=== PATIENT | male | born 1940 | race African-American/Black ===

== ENCOUNTER 2017-09-13 23:20 | Inpatient (IN) | payer OTHER ==
[~2017-09-13] VITALS: Ht 180.3 cm; Wt 85.3 kg
[~2017-09-13 23:20] MED LIST: ASPIRIN325 PO; CALCITRIOL0.25 MCG PO; CELLCEPT500 MG PO; COLACE100 MG PO; CRESTOR20 MG PO; LASIX 20 MG TAB20 MG PO; LEVEMIR SQ; LOPRESSOR25 PO; NOVOLOG100 UNIT/1 SQ; PAXIL10 MG; PREDNISONE 5 MG5 M1 PO; PRILOSEC20 MG PO; PROGRAF5 MG PO; SIMVASTATIN10 MG PO; TACROLIMUS1 MG PO; TUMS PO
[2017-09-13 23:33] VITALS: BP 148/66
[2017-09-14 00:24] LABS: HEMATOCRIT 38.1 % (42.0-52.0); HEMOGLOBIN 12.5 gm/dL (14.0-18.0); MCH 28.6 pg (26.0-34.0); MCHC 32.7 g/dL (28.0-37.0); MCV 87.4 fL (80.0-100.0); PLATELET COUNT 125 thou/uL (150-400); RBC 4.36 mil/uL (4.50-6.00); RDW 14.3 % (10.5-14.5); WBC 3.8 thou/uL (4.0-11.0)
[2017-09-14 00:37] LABS: CALCIUM 9.7 mg/dL (8.5-10.1); CREATININE 1.9 mg/dL (0.7-1.3); POTASSIUM 4.8 mmol/L (3.5-5.1)
[2017-09-14 01:19] LABS: ABSOLUTE NEUTROPHILS 1.9 thou/uL (1.4-8.2)
[2017-09-14 02:24] VITALS: BP 151/64
[2017-09-14 02:36] VITALS: BP 151/64
[2017-09-14 02:53] VITALS: BP 163/73
[2017-09-14 07:45] VITALS: BP 149/70
[2017-09-14 11:47] VITALS: BP 149/70
== END 2017-09-14 14:28 | disposition home or self-care (01) | DRG 638 ==
LOC: ER 23:20 → EROBS 09-14 02:18 → 4W 09-14 02:18
PROVIDERS: Emergency Medicine
DX: E11.649 Type 2 diabetes mellitus with hypoglycemia without coma (principal); Z94.0 Kidney transplant status; I12.0 Hypertensive chronic kidney disease with stage 5 chronic kidney disease or end stage renal disease; E11.22 Type 2 diabetes mellitus with diabetic chronic kidney disease; N18.6 End stage renal disease; I25.10 Atherosclerotic heart disease of native coronary artery without angina pectoris; N17.9 Acute kidney failure, unspecified; H54.8 Legal blindness, as defined in USA; E78.5 Hyperlipidemia, unspecified; I25.2 Old myocardial infarction; Z79.4 Long term (current) use of insulin; Z79.82 Long term (current) use of aspirin; Z79.899 Other long term (current) drug therapy
CPT/HCPCS: 10040

== ENCOUNTER 2018-04-10 10:43 | Inpatient (IN) | payer OTHER ==
[~2018-04-10] VITALS: Ht 180.3 cm; Wt 85.2 kg
--- NOTE | ~2018-04-10 | HC ---
[facility] [place] [address] CONSULTATION Name: ROCKY TEJEDA Room #: 160-1 ADM IN M.R.#: [id number] Admission: 04/10/18 Attend Phys: Renzo Terry MD Discharge: Date of : 44 Report #: [id number] THIS REPORT FOR: //name// CC: Renzo Terry Physician staff BEAR ATKINSON REASON FOR CONSULTATION: Syncope and complete heart block. HISTORY OF PRESENT ILLNESS: The patient is a 77-year-old patient with a history of coronary artery disease, diabetes, diabetic nephropathy and diabetic retinopathy, status post renal transplantation with a left-sided dialysis graft, who presents after having multiple syncopal episodes today. When he was found, he was noted to be in complete heart block based on the tracing. Here in the Emergency Room, he has an EKG showing sinus rhythm with a first degree AV block, right bundle branch block and left anterior fascicular block with periods of Mobitz II heart block as well as complete heart block with associated lightheadedness. He denies any chest pain or chest tightness. He denies any PND or orthopnea. He underwent an echocardiogram today in the Emergency Room showing an EF of 55-60%. REVIEW OF SYSTEMS: A 12-point review of systems was performed and was negative other than what I mentioned above. PAST MEDICAL HISTORY: As was I mentioned above. SOCIAL HISTORY: Does not smoke. FAMILY HISTORY: Noncontributory. MEDICATIONS: Have been reviewed and include metoprolol for his CAD as well as hypertension and he is also on multiple immunosuppressive medications. PHYSICAL EXAMINATION: VITAL SIGNS: Temperature is 36.5, pulse 66, respirations 14, blood pressure 139/93, sats 99%. GENERAL: He is in no acute distress. HEENT: He is blind. Pupils are fixed. His oropharynx is clear. NECK: Supple. No thyromegaly. CARDIOVASCULAR: Heart is regular rate and rhythm. No murmurs, rubs or gallops. CHEST: Clear to auscultation bilaterally. ABDOMEN: Soft, nontender, nondistended. EXTREMITIES: There is no clubbing, cyanosis or edema. NEUROLOGIC: Cranial nerves were grossly intact with normal strength bilaterally. LABORATORY DATA: Reviewed. White count is 4, hemoglobin 11, platelets are 119. [address] [address] CONSULTATION Name: ROCKY TEJEDA Room #: [facility]-1 ADM IN .R.#: [id number] Admission: 04/10/18 Attend Phys: Renzo Terry MD Discharge: Date of : 44 Report #: [id number] Sodium 143, potassium 3.9, creatinine 1.9. Troponin is normal. TSH 3.8. Chest x-ray showed no acute process. Echo showed normal LV size and function. ASSESSMENT: 1. Syncope. 2. Complete heart block. 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 5. Coronary artery disease. 6. Status post renal transplant. 7. Immunosuppressed state. PLAN: In summary, the patient is a 77-year-old presenting with syncope and evidence of complete heart block. He continues to have recurrent episodes. He will require beta blockers lifelong for his known CAD and hypertension. We will proceed with dual chamber pacemaker today. We have discussed the details of the procedure including the risks, which include but not limited to bleeding, infection, vascular damage, cardiac perforation and pneumothorax. He and his son understand and are willing to proceed. By: 1505 [facility] Thaddeus Garcia MD /nt
--- NOTE | ~2018-04-10 | P ---
[facility] [place] [address] PROCEDURE REPORT Name: ROCKY TEJEDA Room #: 214-P [facility] IN ..#: [id number] Admission: 04/10/18 Attend Phys: Renzo Terry MD Discharge: 04/11/18 Date of : 42 Report #: [id number] THIS REPORT FOR: //name// CC: Renzo Terry Physician staff BEAR CHINA PROCEDURE: Pacemaker implantation. HISTORY: The patient is a 77-year-old with history of trifascicular block with a syncopal episode and found to be experiencing Mobitz second degree heart block and third-degree heart block. He is here for pacemaker implantation. Of note, he has a left-sided AV fistula, and therefore, he will undergo pacemaker implantation from the right-sided placement. ANESTHESIA: The patient underwent MAC anesthesia with no anesthesia related complications. DESCRIPTION OF PROCEDURE: The patient underwent informed consent. We discussed the details of the procedure including the risks, which include but not limited to bleeding, infection, vascular damage, pneumothorax and cardiac perforation. He understood these risks and is willing to proceed. The patient was brought to the EP laboratory in fasting and sedated state, prepped and draped in a sterile fashion, received IV vancomycin for antibiotic prophylaxis and underwent a venogram showing patency of the right axillary vein. Next, lidocaine was injected below the level of the right clavicle. Incision was made, pocket was created over the prepectoral fascia and access was obtained twice to the right axillary vein with sheaths positioned using the modified Seldinger technique. Next, under fluoroscopy, leads were positioned into the right ventricle and the right atrial appendage, both with adequate pacing and sensing thresholds. The leads were sutured to the prepectoral fascia, and the pocket was irrigated with vancomycin. The device was connected. TUG test was performed. The pocket was closed in 3 layers using 2-0 for the deep layer, 3-0 for the mid layer and 4-0 for the subcuticular. Surgical glue was placed to the outer skin layer. The patient awoke neurologically and hemodynamically intact. No complications and no significant bleeding. The implanted pacemaker was a [employer] MRI compatible device, serial #[id number]. Atrial and ventricular leads were [employer] leads as well. The atrial lead demonstrated a P-wave of 2 millivolts, pacing impedance of 0.75 volts at 0.4 milliseconds, pacing impedance of 440 ohms. The RV lead demonstrated a R-wave of 2.3 millivolts, pacing impedance of 610 ohms and the pacing threshold of 0.25 volts at 0.4 milliseconds. The device was programmed to the DDD 60-130 mode. CONCLUSIONS: [facility] [address] [place] [address] PROCEDURE REPORT Name: ROCKY TEJEDA Khurram Room #: 214-P [facility] IN M.R.#: [id number] Admission: 04/10/18 Attend Phys: Renzo Terry MD Discharge: 04/11/18 Date of : 42 Report #: [id number] 1. Successful dual-chamber pacemaker implantation. 2. Satisfactory atrial and ventricular pacing and sensing thresholds. By: 1224 1544 Thaddeus Garcia MD /nt
[~2018-04-10 10:43] MED LIST changes: -LOPRESSOR25 PO; +LOPRESSOR50 PO
[2018-04-10 10:44] VITALS: BP 156/67
[2018-04-10 10:58] LABS: ABSOLUTE NEUTROPHILS 2.1 thou/uL (1.4-8.2); BASOPHILS 0.5 % (0.0-2.0); EOSINOPHILS 4.2 % (0.0-3.0); HEMATOCRIT 35.7 % (42.0-52.0); HEMOGLOBIN 11.8 gm/dL (14.0-18.0); LYMPHOCYTES 31.6 % (24.0-44.0); MCH 29.1 pg (26.0-34.0); MCV 88.2 fL (80.0-100.0); PLATELET COUNT 119 thou/uL (150-400); POLYS 52.7 % (36.0-66.0); RBC 4.05 mil/uL (4.50-6.00); RDW 13.8 % (10.5-14.5)
[2018-04-10 11:10] LABS: ANION GAP 7 mmol/L (7-16); BUN 30 mg/dL (7-18); CALCIUM 9.2 mg/dL (8.5-10.1); CHLORIDE 106 mmol/L (98-107); CO2 30 mmol/L (21-32); CREATININE 1.9 mg/dL (0.7-1.3); GLUCOSE 51 mg/dL (74-106); POTASSIUM 3.9 mmol/L (3.5-5.1); SODIUM 143 mmol/L (136-145)
[2018-04-10 11:18] LABS: ALBUMIN 3.3 g/dL (3.4-5.0); SGOT 20 U/L (15-37); SGPT 19 U/L (30-65); TOTAL BILIRUBIN 0.5 mg/dL (<0.1-1.0); TOTAL PROTEIN 6.7 g/dL (6.4-8.2); TROPONIN-I <0.06 ng/mL (<0.06)
[2018-04-10 12:30] LABS: URINE COLOR YELLOW
[2018-04-10 12:32] LABS: URINE BILIRUBIN NEGATIVE (Negative); URINE BLOOD TRACE (Negative); URINE CLARITY CLEAR; URINE GLUCOSE-RANDOM* NEGATIVE (Negative); URINE KETONES NEGATIVE (Negative); URINE NITRITE-REFLEX NEGATIVE (Negative); URINE PROTEIN (DIPSTICK) NEGATIVE (Negative); URINE SPECIFIC GRAVITY 1.015 (1.005-1.035)
[2018-04-10 12:33] LABS: URINE LEUKOCYTES-REFLEX NEGATIVE (Negative); URINE UROBILINOGEN 0.2 E.U./dl (0.2-1.0)
[2018-04-10] MEDS ORDERED: NOVOLOG100 UNIT/M SUBQ (12:39)
[2018-04-10] MEDS ORDERED: CALCIUM + VITA1 EACH PO (12:42)
[2018-04-10] MEDS ORDERED: ZESTRIL20 MG PO (12:43)
[2018-04-10 13:06] VITALS: BP 139/93
[2018-04-10 13:14] LABS: CHOLESTEROL 151 mg/dL (<200); HDL CHOLESTEROL 77 mg/dL (>40); LDL CHOLESTEROL 62 mg/dL (<100); TRIGLYCERIDE 64 mg/dL (<150); VLDL 13 mg/dL (<40)
[2018-04-10 13:16] LABS: SERUM ASSESSMENT Clear
--- NOTE | 2018-04-10 13:31 | 2DMMODE ---
[facility] [place] [address] 2 D/M-MODE ECHOCARDIOGRAM Name: ROCKY TEJEDA Room #: 160-1 ADM IN [facility]#: [id number] Admission: 04/10/18 Attend Phys: Renzo Terry MD Discharge: Date of : 44 Date of Service: 04/10/18 1330 Report #: [id number] THIS REPORT FOR: //name// APPROVED REPORT Study performed: 04/10/2018 12:32:54 EXAM: Comprehensive 2D, Doppler, and color-flow Echocardiogram Patient Location: ER Room #: 12 Status: stat BSA: 2.04 HR: 61 bpm BP: 139/93 mmHg Rhythm: NSR Other Information Study Quality: Good Indications Diabetes Hypertension/HDD Complete Heart Block 2D Dimensions RVDd: 39.65 mm IVSd: 14.09 (7-11mm) LVOT Diam: 21.98 (18-24mm) LVDd: 43.53 mm PWd: 14.15 (7-11mm) Ascending Ao: 34.12 (22-36mm) LVDs: 25.58 (25-40mm) Aortic Root: 29.08 mm IVC: 18.00 mm Volumes Left Atrial Volume (Systole) Single Plane 4CH: 47.50 mL Single Plane 2CH: 52.61 mL LA ESV Index: 30.00 mL/m2 Aortic Valve AoV Peak Jose Alfredo.: 1.27 m/s AO Peak Gr.: 6.44 mmHg LVOT Max P.76 mmHg LVOT Max V: 0.97 m/s DIANA Vmax: 2.90 cm2 Mitral Valve E/A Ratio: 0.9 [facility] [address] [place] [address] 2 D/M-MODE ECHOCARDIOGRAM Name: ROCKY TEJEDA Room #: [address] [place] [address] IN [facility]#: [id number] Admission: 04/10/18 Attend Phys: Renzo Terry MD Discharge: Date of : 44 Date of Service: 04/10/18 1330 Report #: [id number] MV Decel. Time: 218.26 ms MV E Max Jose Alfredo.: 0.97 m/s MV A Jose Alfredo.: 1.07 m/s MV PHT: 63.30 ms IVRT: 106.11 ms Pulmonary Valve PV Peak Jose Alfredo.: 1.00 m/s PV Peak Gr.: 4.04 mmHg Pulmonary Vein P Vein S: 0.77 m/s P Vein A: 0.26 m/s P Vein D: 0.38 m/s P Vein A Dur.: 101.5 msec P Vein S/D Ratio: 2.03 Tricuspid Valve TR Peak Jose Alfredo.: 2.56 m/s TR Peak Gr.: 26.29 mmHg PA Pressure: 31.00 mmHg Left Ventricle The left ventricle is normal size. Mild concentric left ventricular hypertrophy. The left ventricular systolic function is normal. The left ventricular ejection fraction is within the normal range. LVEF is 55-60%. Grade I - abnormal relaxation pattern. Right Ventricle The right ventricle is normal size. The right ventricular systolic function is normal. Atria The left atrium size is normal. The right atrium size is normal. Aortic Valve The aortic valve is normal in structure. No aortic regurgitation is present. There is no aortic valvular stenosis. Mitral Valve The mitral valve is normal in structure. Mild mitral regurgitation. No evidence of mitral valve stenosis. Tricuspid Valve The tricuspid valve is normal in structure. There is trace to mild tricuspid regurgitation. Estimated PAP 31 mmHg. There is mild pulmonary hypertension. [place] [id number] 2 D/M-MODE ECHOCARDIOGRAM Name: ROCKY TEJEDA Room #: 160-1 [facility] IN .R.#: [id number] Admission: 04/10/18 Attend Phys: Renzo Terry MD Discharge: Date of : 44 Date of Service: 04/10/18 1330 Report #: [id number] Pulmonic Valve The pulmonary valve is normal in structure. There is no pulmonic valvular regurgitation. Great Vessels The aortic root is normal in size. IVC is normal in size and collapses >50% with inspiration. Pericardium There is no pericardial effusion. <Conclusion> The left ventricle is normal size. LVEF is 55-60%. The aortic valve is normal in structure. The mitral valve is normal in structure. Mild mitral regurgitation. The tricuspid valve is normal in structure. The pulmonary valve is normal in structure. The aortic root is normal in size. There is no pericardial effusion. <ELECTRONICALLY SIGNED> By: Ashok Martin MD 04/10/18 1330 1330 133 Ashok Martin MD /INF
--- NOTE | 2018-04-10 15:46 | EKG ---
[address] [address] ELECTROCARDIOGRAM REPORT Name: ROCKY TEJEDA Room #: 160-1 ADM IN M.R.#: [id number] Admission: 04/10/18 Attend Phys: Renzo Terry MD Discharge: Date of : 44 Report #: [id number] THIS REPORT FOR: //name// [facility] ED Test Date: 2018-04-10 Test Time: 10:46:08 Pat Name: ROCKY TEJEDA Department: Room: 160 Gender: M Commissions Manager: : 1940 Requested By: Roger Duran Order Number: [id number] MD: Thaddeus Garcia Measurements Intervals [place] Rate: 62 P: 45 [place]: 295 QRS: -75 QRSD: 147 T: 59 QT: 423 QTc: 430 Interpretive Statements Sinus rhythm Prolonged [place] interval RBBB and LAFB Compared to ECG 01/17/2015 14:58:24 First degree AV block now present Right bundle-branch block now present Electronically Signed On 04-10-2018 15:46:39 AIRPLANE CLEANER by Thaddeus Garcia [email or web address] <ELECTRONICALLY SIGNED> By: Thaddeus Garcia MD 04/10/18 1546 1046 1046 Thaddeus Garcia MD /[facility]
--- NOTE | 2018-04-10 15:48 | EKG ---
[address] [address] ELECTROCARDIOGRAM REPORT Name: ROCKY TEJEDA Room #: 160-1 ADM IN M.R.#: [id number] Admission: 04/10/18 Attend Phys: Renzo Terry MD Discharge: Date of : 44 Report #: [id number] THIS REPORT FOR: //name// [facility] ED Test Date: 2018-04-10 Test Time: 12:33:02 Pat Name: ROCKY TEJEDA Department: Room: 160 Gender: M Oil Dipper: : 1940 Requested By: Keyla Bianchi Order Number: [id number] MD: Thaddeus Garcia Measurements Intervals [place] Rate: 61 P: 0 RI: 333 QRS: -68 QRSD: 149 T: 73 QT: 436 QTc: 440 Interpretive Statements Sinus rhythm Prolonged [place] interval RBBB and LAFB Trifascicular block Compared to ECG 01/17/2015 14:58:24 First degree AV block now present Right bundle-branch block now present Electronically Signed On 04-10-2018 15:48:01 AUDIOLOGY TECHNICIAN by Thaddeus Garcia [email or web address] <ELECTRONICALLY SIGNED> By: Thaddeus Garcia MD 04/10/18 1548 1233 1233 Thaddeus Garcia MD /EPI
--- NOTE | 2018-04-10 18:41 | NUR ---
PT ADMITTED FROM PACU POST PPM PLACEMENT. CARE ASSUMED APPROX 1730. PT ALERT AND ORIENTED X4. BLIND AND ELEM. SON- KELLI RINGY AT BEDSIDE AND COMPLETED PAPERWORK. BOTH PT AND SON DENY QUESTIONS OR CONCERNS REGARDING POC AND POST OP MANAGEMENT. RIGHT CHEST PPM SITE C/D/I AND CLOSED WITH DERMAOND. VSS. FALL PRECAUTIONS INITIATED. PT EDUCATED AND AGREEABLE TO FALL PRECAUTIONS. DENIES PAIN AND SOA. NO DISTRESS NOTED.
[2018-04-10 20:01] VITALS: BP 173/74
[2018-04-10 23:46] VITALS: BP 166/66
[2018-04-11 00:06] VITALS: BP 166/66
--- NOTE | 2018-04-11 04:19 | NUR ---
ASSUMED PT CARE AT 1900. PT AWAKE, A/OX4, ASSESSMENT CHARTED, VITAL SIGNS STABLE. NO CHEST PAIN. PACEMAKER SITE C/D/I, NO HEMATOMA NOTED. CALL LIGHT WITHIN REACH. PT ABLE TO CALL APPROPRIATELY. PT RESTED WELL THROUGH THE NIGHT. PROGRESSING WELL TOWARD PLAN OF CARE. WILL CONTINUE TO MONITOR.
[2018-04-11 04:56] LABS: ABSOLUTE NEUTROPHILS 2.8 thou/uL (1.4-8.2); BASOPHILS 0.2 % (0.0-2.0); EOSINOPHILS 2.8 % (0.0-3.0); HEMATOCRIT 35.2 % (42.0-52.0); HEMOGLOBIN 11.7 gm/dL (14.0-18.0); LYMPHOCYTES 22.8 % (24.0-44.0); MCH 29.2 pg (26.0-34.0); MCHC 33.3 g/dL (28.0-37.0); MCV 87.6 fL (80.0-100.0); PLATELET COUNT 109 thou/uL (150-400); POLYS 63.2 % (36.0-66.0); RBC 4.01 mil/uL (4.50-6.00); RDW 13.9 % (10.5-14.5); WBC 4.5 thou/uL (4.0-11.0)
[2018-04-11 05:09] LABS: CALCIUM 8.8 mg/dL (8.5-10.1); CREATININE 1.7 mg/dL (0.7-1.3); MAGNESIUM 1.8 mg/dL (1.8-2.4)
[2018-04-11 05:15] LABS: POTASSIUM 5.4 mmol/L (3.5-5.1)
[2018-04-11 05:51] VITALS: BP 143/56
[2018-04-11 08:00] VITALS: BP 145/67
[2018-04-11 12:00] VITALS: BP 178/87
[2018-04-11 12:39] VITALS: BP 145/67
--- NOTE | 2018-04-11 14:25 | NUR ---
PT. DISCHARGING TODAY TO HOME WITH [facility]. FAXED DC ORDERS/SUMMARY TO [facility] SPOKE WITH ROCKY IN ADM, SHE RECEIVED ORDERS AND WILL START VISITS ON Sunday04/13/18 SHE WILL NOTIFY PT. OF TIME OF VISITS.
--- NOTE | 2018-04-11 14:31 | NUR ---
ASSUMED CARE AT SHIFT CHANGE. PT A/O X 4. ASSESSMENTS PER CHART. CXR THIS MORNING. CLEARED BY CARDIOLOGY TO GO HOME TODAY. PT DENIES ANY PAIN, SOB, OR FEELING LIKE HE IS GOING TO PASS OUT TODAY. IV ATB X 1 DOSE GIVEN. PT GOING HOME WITH HOME HEALTH THIS AFTERNOON AROUND 1500. FAMILY AND PT UPDATED. WILL CONT TO MONITOR AND INTERVENE PRN.
--- NOTE | 2018-04-11 14:36 | NUR ---
Hall Manager visited with the pt at bedside. He is being dc'd to home today. Pt reports his children will be picking him up this afternoon. He lives with his in [place] and he has hh services through [facility]. HH orders noted. [facility] alerted to dc today and resumption of care orders. DC interstate planner to fax the orders and confirm his start of care. Pt denies any other dc needs at this time. Case closed.
--- NOTE | 2018-04-11 14:50 | NUR ---
IV D/C'D AND TELE REMOVED FROM PT BEFORE GETTING DRESSED FOR DISCHARGE.
--- NOTE | 2018-04-12 09:00 | HC ---
[facility] [place] [address] CONSULTATION Name: ROCKY TEJEDA Room #: 214-P [facility] IN ..#: [id number] Admission: 04/10/18 Attend Phys: Renzo Terry MD Discharge: 04/11/18 Date of : 42 Report #: [id number] THIS REPORT FOR: //name// CC: Renzo Terry Physician staff BEAR ATKINSON REASON FOR CONSULTATION: Kidney transplant. REASON FOR PRESENTATION: Blacking out. HISTORY OF PRESENT ILLNESS: A 77-year-old with past medical history of hypertension, diabetes mellitus, status post kidney transplant. He is also known to have coronary artery disease post-stent x 4. Apparently, the patient had syncopal episode while having breakfast yesterday. He was brought to the Emergency Room and was found to have complete heart block. He had a pacemaker insertion and I am consulted to manage his kidney transplant. He had his cadaveric kidney transplantation back in 2000. Baseline creatinine is around 1.5-1.8. He is maintained on dual immunosuppression and I am consulted to manage his issues related to his transplant. PAST MEDICAL HISTORY: 1. Chronic kidney disease. 2. Diabetes mellitus. 3. Hypertension. 4. Hyperlipidemia. 5. Coronary artery disease. 6. Complete heart block. 7. Cadaveric kidney transplantation. 8. Left AV fistula. 9. Hyperlipidemia. 10. Legally blind. MEDICATIONS: 1. Tacrolimus. 2. Lasix. 3. Metoprolol. 4. Levemir insulin. 5. Lisinopril. 6. Mycophenolate. 7. Prednisone. 8. Crestor. 9. Calcitriol. FAMILY HISTORY: Significant for hypertension and diabetes mellitus. REVIEW OF SYSTEMS: [facility] [address] [place] [address] CONSULTATION Name: ROCKY TEJEDA Room #: 214-P [facility] IN ..#: [id number] Admission: 04/10/18 Attend Phys: Renzo Terry MD Discharge: 04/11/18 Date of : 42 Report #: [id number] GENERAL: Significant for syncopal episode. CARDIOVASCULAR: No chest pain or palpitation. NECK: Supple. PULMONARY: No cough or hemoptysis. GASTROINTESTINAL: No nausea or vomiting. GENITOURINARY: No frequency, urgency. MUSCULOSKELETAL: No back pain, no morning stiffness. NEUROLOGICAL: Significant for syncope. ALLERGIES: No known drug allergies. SOCIAL HISTORY: Denies drug or alcohol abuse. PHYSICAL EXAMINATION: GENERAL: Alert, oriented, in no apparent distress. VITAL SIGNS: Blood pressure now is 145/67, pulse rate is 98, temperature 36.5. HEAD AND NECK: No jugular venous distention, no bruit, no thyromegaly. CHEST: Clear to auscultation bilaterally. CARDIOVASCULAR: No rub detected. ABDOMEN: Soft, nontender with no hepatosplenomegaly. LOWER EXTREMITIES: No edema with intact peripheral pulses. UPPER EXTREMITIES: Left AV fistula. LABORATORY VALUES: Reviewed. Hemoglobin is 11.7, platelet is 109. Potassium is mildly elevated at 5.4. Blood sugar is elevated. Chest x-ray with no acute finding. Dual lead pacemaker present. ASSESSMENT, IMPRESSION AND PLAN: 1. Chronic kidney disease. 2. Post-kidney transplantation. 3. Complete heart block. 4. Diabetes mellitus. 5. Hypertension. 6. Post-pacemaker. 7. The patient's kidney function seems to be stable. He does have mild hyperkalemia. He is currently maintained on tacrolimus and mycophenolate along with prednisone. I will check his tacrolimus level in the morning as this might be contributing to his hyperkalemia. 8. Low potassium diet. 9. Repeat labs in the morning. 10. Resume his blood pressure and sugar medication. 11. We will continue to follow along. <ELECTRONICALLY SIGNED> By: Radha Gillespie MD 04/12/18 0900 0955 1043 Radha Gillespie MD /nt
== END 2018-04-11 16:34 | disposition home health service (06) | DRG 242 ==
LOC: ER 10:43 → 2N 12:02 → EROBS 12:02 → TBACV 13:09 → 2N 17:57 → ENTRNSPT 04-11 15:38 → EDTRNSPTSTS 04-11 15:43 → 2N 04-11 16:34
PROVIDERS: Emergency Medicine; Nurse Practitioner; ADMIT Hospitalist
DX: I44.2 Atrioventricular block, complete (principal); E43 Unspecified severe protein-calorie malnutrition; Z94.0 Kidney transplant status; I12.0 Hypertensive chronic kidney disease with stage 5 chronic kidney disease or end stage renal disease; E78.5 Hyperlipidemia, unspecified; H54.8 Legal blindness, as defined in USA; I25.10 Atherosclerotic heart disease of native coronary artery without angina pectoris; E11.319 Type 2 diabetes mellitus with unspecified diabetic retinopathy without macular edema; I44.1 Atrioventricular block, second degree; E11.22 Type 2 diabetes mellitus with diabetic chronic kidney disease; E11.649 Type 2 diabetes mellitus with hypoglycemia without coma; E87.5 Hyperkalemia; I77.0 Arteriovenous fistula, acquired; Z79.82 Long term (current) use of aspirin; I25.2 Old myocardial infarction; Z82.49 Family history of ischemic heart disease and other diseases of the circulatory system; Z83.3 Family history of diabetes mellitus; Z95.5 Presence of coronary angioplasty implant and graft; Z79.899 Other long term (current) drug therapy; Z79.4 Long term (current) use of insulin; N18.9 Chronic kidney disease, unspecified
CPT/HCPCS: 10081; 62110; 62900; 70005

== ENCOUNTER 2018-07-05 16:28 | Inpatient (IN) | payer OTHER ==
[~2018-07-05] VITALS: Ht 175.3 cm; Wt 74.8 kg
--- NOTE | ~2018-07-05 | HC ---
[facility] [address] [place] [address] CONSULTATION Name: ROCKY TEJEDA Room #: 455-P [facility] IN ..#: [id number] Admission: 07/05/18 ������������������ Attend Phys: Renzo Terry MD Discharge: ������������������ Date of : 44 Report #: [id number] THIS REPORT FOR: //name// CC: BHAVIK physician/PCP Renzo Terry Physician staff REASON FOR THE CONSULTATION: Kidney transplant. HISTORY OF PRESENT ILLNESS: A 77-year-old with kidney transplant in 2001. He was maintained on hemodialysis for a couple of years prior to that. He had been seeing Dr. Bennett up until 2012. Then, he switched his care to the [facility] He is still maintained on triple immunosuppressive regimen. He presented to the Emergency Room on the reporting that he had been having some issues with weakness and decreased appetite. He also reports high blood sugar readings. He had some issues with chest pain. This was described as intermittent. It has some radiations to the left anterior shoulder. He also noticed that his blood sugar has been running high lately. He denies any urinary symptoms. He was accordingly admitted to be further evaluated. He recently was in the hospital back in March and received a pacemaker for a complete heart block. His chest pain has subsided. From the renal perspective, he received a kidney transplant back in 2001. His baseline creatinine is around 1.7, was marginally elevated when the patient presented; however, it is down to his baseline at 1.7. MEDICATIONS: 1. Metoprolol. 2. Lisinopril. 3. Lasix. 4. Insulin. 5. Mycophenolate. 6. Tacrolimus. 7. Aspirin. 8. Prednisone. PAST MEDICAL HISTORY: Extensive and includes the followin. Chronic kidney disease. 2. Status post renal transplantation. 3. Diabetes mellitus. 4. Hypertension. 5. Status post pacemaker. 6. Coronary artery disease. 7. Left AV fistula. 8. Hyperlipidemia. 9. Legal blindness. FAMILY HISTORY: Significant for hypertension and diabetes mellitus. [facility] [address] [place] [address] CONSULTATION Name: ROCKY TEJEDA Room #: 455-P [facility] IN ..#: [id number] Admission: 07/05/18 ������������������ Attend Phys: Renzo Terry MD Discharge: ������������������ Date of : 44 Report #: [id number] REVIEW OF SYSTEMS: GENERAL: Significant for weakness. CARDIOVASCULAR: As per the history of present illness. PULMONARY: No cough or hemoptysis. GASTROINTESTINAL: Decreased oral intake. GENITOURINARY: No frequency and no urgency. MUSCULOSKELETAL: No morning stiffness and no back pain. NEUROLOGICAL: No syncope. No seizures. ALLERGIES: None. SOCIAL HISTORY: He denies drug or alcohol abuse. PHYSICAL EXAMINATION: VITAL SIGNS: Temperature 36.8, pulse rate 62 and blood pressure 160/52. HEAD AND NECK: No jugular venous distention and no bruit or thyromegaly. CHEST: Decreased air entry bilaterally, but no crackles. CARDIOVASCULAR: No rub detected. ABDOMEN: Soft and nontender with no graft tenderness. LOWER EXTREMITIES: No edema. LABORATORY DATA: Laboratory values reviewed. Thrombocytopenia, present at 106. Chemistry from today revealed a sodium of 135, potassium of 1.7. Blood sugar is mildly elevated at 206. Albumin is 2.8. ASSESSMENT, IMPRESSION AND PLAN: 1. Status post renal transplantation. 2. Diabetes mellitus. 3. Hypertension. 4. Chest pain of unknown significance in a patient with known coronary artery disease. 5. Status post pacemaker insertion. 6. Troponin has been negative x 3. Renal function is improving with hydration. He is suffering from long-term side effects related to his immune suppressive medications including prednisone, high Prograf dose. He is also having thrombocytopenia. It is unclear to me as to why is the patient still on such a high dose immunosuppressive medications. I will discontinue his prednisone. We will reduce the dose of his Prograf to 3 mg twice a day as this is the dose that he used to see Dr. Bennett with further reduction has to be discussed between him and his quill layer at the [facility] 7. We will continue to follow along during his hospital stay. 8. Defer the management of his other issues to the primary team. ��������������������������������������������� ���������������������������������������� By: ��������������������������������������������� [id number] 0108 Radha Gillespie MD /nt
[~2018-07-05 16:28] MED LIST changes: +CALCIUM + VITA1 EACH PO; +NOVOLOG100 UNIT/M SUBQ; +ZESTRIL20 MG PO
[2018-07-05 17:45] VITALS: BP 151/56
[2018-07-05 18:13] LABS: HEMATOCRIT 33.6 % (42.0-52.0); HEMOGLOBIN 11.1 gm/dL (14.0-18.0); MCH 28.9 pg (26.0-34.0); MCHC 33.1 g/dL (28.0-37.0); MCV 87.3 fL (80.0-100.0); PLATELET COUNT 125 thou/uL (150-400); RBC 3.85 mil/uL (4.50-6.00); RDW 13.7 % (10.5-14.5); WBC 3.5 thou/uL (4.0-11.0)
[2018-07-05 18:23] LABS: ANION GAP 7 mmol/L (7-16); BUN 43 mg/dL (7-18); CALCIUM 10.8 mg/dL (8.5-10.1); CHLORIDE 98 mmol/L (98-107); CO2 31 mmol/L (21-32); CREATININE 2.5 mg/dL (0.7-1.3); GLUCOSE 342 mg/dL (74-106); POTASSIUM 5.2 mmol/L (3.5-5.1); SODIUM 136 mmol/L (136-145)
[2018-07-05 18:33] LABS: ALBUMIN 3.6 g/dL (3.4-5.0); ANISOCYTOSIS 1+; MAGNESIUM 1.7 mg/dL (1.8-2.4); SGOT 20 U/L (15-37); SGPT 15 U/L (30-65); TOTAL BILIRUBIN 0.5 mg/dL (<0.1-1.0); TOTAL PROTEIN 6.9 g/dL (6.4-8.2); TROPONIN-I <0.06 ng/mL (<0.06)
[2018-07-05 19:14] LABS: URINE BILIRUBIN NEGATIVE (Negative); URINE BLOOD 2+ (Negative); URINE CLARITY CLEAR; URINE COLOR YELLOW; URINE GLUCOSE-RANDOM* NEGATIVE (Negative); URINE KETONES NEGATIVE (Negative); URINE LEUKOCYTES-REFLEX NEGATIVE (Negative); URINE NITRITE-REFLEX NEGATIVE (Negative); URINE PROTEIN (DIPSTICK) 2+ (Negative); URINE SPECIFIC GRAVITY >= 1.030 (1.005-1.035); URINE UROBILINOGEN 0.2 E.U./dl (0.2-1.0)
[2018-07-05 19:21] LABS: HYALINE CASTS 4-10 Moderate /LPF (None Seen)
[2018-07-05 19:22] LABS: AMORPHOUS URATES Few /LPF (None Seen); BACTERIA-REFLEX 1-9 Few /HPF (None Seen); SQUAMOUS 0-3 Few /LPF (0-3); URINE RBC 0-2 Rare /HPF (0-2); URINE WBC-REFLEX 0-5 Rare /HPF (0-5)
[2018-07-05 21:05] VITALS: BP 168/84
[2018-07-05 21:13] VITALS: BP 166/64
--- NOTE | 2018-07-05 21:30 | NUR ---
Pt. arrived to the unit from the emergency room accompanied by family and staff. He offers no complaints. Admission assessment and history completed. Bed alarm is on.
[2018-07-05 21:55] VITALS: BP 184/77
--- NOTE | 2018-07-06 04:44 | NUR ---
Pt. rested quietly at intervals during the night when checked on during frequent rounds. He uses the urinal. No c/o pain and bed alarm is on.
[2018-07-06 04:57] VITALS: BP 153/60
[2018-07-06 05:09] LABS: HEMATOCRIT 32.8 % (42.0-52.0); HEMOGLOBIN 10.9 gm/dL (14.0-18.0); MCHC 33.3 g/dL (28.0-37.0); MCV 86.9 fL (80.0-100.0); RBC 3.77 mil/uL (4.50-6.00); RDW 13.6 % (10.5-14.5); WBC 3.4 thou/uL (4.0-11.0)
[2018-07-06 05:31] LABS: ANION GAP 7 mmol/L (7-16); BUN 35 mg/dL (7-18); CALCIUM 9.5 mg/dL (8.5-10.1); CHLORIDE 104 mmol/L (98-107); CHOLESTEROL 135 mg/dL (<200); CO2 29 mmol/L (21-32); CREATININE 2.1 mg/dL (0.7-1.3); GLUCOSE 174 mg/dL (74-106); HDL CHOLESTEROL 58 mg/dL (>40); LDL CHOLESTEROL 63 mg/dL (<100); SGOT 17 U/L (15-37); SGPT 13 U/L (30-65); SODIUM 140 mmol/L (136-145); TC:HDL 2.3 Ratio (Not establshd); TOTAL BILIRUBIN 0.4 mg/dL (<0.1-1.0); TRIGLYCERIDE 72 mg/dL (<150); TROPONIN-I <0.06 ng/mL (<0.06); VLDL 14 mg/dL (<40)
[2018-07-06 05:50] LABS: POTASSIUM 4.2 mmol/L (3.5-5.1); SERUM ASSESSMENT Clear
[2018-07-06 08:00] VITALS: BP 152/68
[2018-07-06 16:35] VITALS: BP 161/57
--- NOTE | 2018-07-06 17:13 | NUR ---
PT VS STABLE THROUGHOUT SHIFT. PT'S BG THIS MORNING WAS 124, GAVE 12 SCHEDULCED UNITS. LUNCHTIME READING WAS 22, GAVE APPLE JUICE AND D-10 AND BG MARY KAY TO 65, FOLLOWED BT LUNCH. NOTIFIED PHYSICIAN WHO ADJUSTED INSULIN ORDERS. PT STATED THAT HE 'ROUTINELY BOTTOMS OUT AT HOME AND JUST DRINKS APPLE JUICE". BG AT DINNER WAS 151, TREATED WITH 3 UNITS PER SS. PT HAS HAD GOOD APPETITE AND NO C/O PAIN. PT RESTING COMFORTABLY, FAMILY AT BEDSIDE.
--- NOTE | 2018-07-06 18:44 | EKG ---
[address] [place] [address] ELECTROCARDIOGRAM REPORT Name: ROCKY TEJEDA Room #: 455-P ADM IN M.R.#: [id number] ������������������ Admission: 07/05/18 ������������������ Attend Phys: Renzo Terry MD Discharge: ������������������ Date of : 44 Report #: [id number] ����������������������������������������������������������������� [id number] THIS REPORT FOR: //name// [facility] ED Test Date: 2018-07-05 Test Time: 16:37:38 Pat Name: ROCKY TEJEDA Department: Room: [facility] Gender: M Acid Cutter: SRIDHAR : 1940 Requested By: Serge Barrera Order Number: [id number] MD: Ashok aMrtin Measurements Intervals [place] Rate: 62 P: 0 FL: 269 QRS: -87 QRSD: 136 T: 70 QT: 416 QTc: 423 Interpretive Statements Sinus rhythm Prolonged FL interval RBBB and LAFB Nonspecific ST-T wave changes Compared to ECG 04/10/2018 12:33:02 No significant changes Electronically Signed On 07-06-2018 18:44:24 CDT by Ashok Martin [email or web address] ��������������������������������������������� <ELECTRONICALLY SIGNED> ���������������������������������������� By: Ashok Martin MD ��������������������������������������������� 07/06/18 1844 1637 1637 Ashok Martin MD /EPI
[2018-07-06 19:40] VITALS: BP 137/52
[2018-07-07 00:05] LABS: GLYCOHEMOGLOBIN (HGB A1C) 7.4 % (4.8-5.6)
[2018-07-07 03:41] VITALS: BP 160/52
--- NOTE | 2018-07-07 03:53 | NUR ---
PT SLEPT MOST OF THE NIGHT PT USED CALL LIGHT EFFECTIVELY NO ISSUES OVERNIGHT.
[2018-07-07 04:24] LABS: ALBUMIN 2.8 g/dL (3.4-5.0); CALCIUM 8.7 mg/dL (8.5-10.1); CREATININE 1.7 mg/dL (0.7-1.3); PHOSPHORUS 2.8 mg/dL (2.5-4.9); POTASSIUM 4.7 mmol/L (3.5-5.1)
[2018-07-07 04:28] LABS: HEMATOCRIT 28.6 % (42.0-52.0); HEMOGLOBIN 9.7 gm/dL (14.0-18.0); MCH 29.4 pg (26.0-34.0); MCHC 33.9 g/dL (28.0-37.0); MCV 86.5 fL (80.0-100.0); RBC 3.31 mil/uL (4.50-6.00); RDW 13.5 % (10.5-14.5); WBC 3.7 thou/uL (4.0-11.0)
[2018-07-07 07:35] VITALS: BP 161/72
--- NOTE | 2018-07-07 10:51 | NUR ---
TOWARDS POC PT A/O X4, LEGALLY BLIND, CALM, AND COOPERATIVE. VSS, AFEBRILE, DENIES PAIN. NO CONCERNS VOICED, WILL CONTINUE TO MONITOR.
[2018-07-07 19:17] VITALS: BP 196/79
[2018-07-07 23:48] VITALS: BP 181/72
[2018-07-08 03:36] VITALS: BP 161/74
--- NOTE | 2018-07-08 05:40 | NUR ---
PATIENT WAS AO X4 THIS SHIFT. PATIENT WAS COMFORTABLE AND SLEPT PART OF THE NIGHT. PATIENT'S BP WAS ELEVATED THIS SHIFT AND ORDERS WERE RECEIVED FROM KITCHEN AND COUNTER WORKER. PATIENT NEEDS ASSISTANCE WITH FEEDING DUE TO BLINDNESS. HIGH FALL RISK PRECAUTION IN PLACE. PATIENT IS PROGRESSING TOWARDS DISCHARGE GOALS.
[2018-07-08 08:00] VITALS: BP 151/74
[2018-07-08] MEDS ORDERED: NOVOLOG100 UNIT/1 SUBQ (13:24)
[2018-07-08] MEDS ORDERED: LEVEMIR SUBQ (13:24)
--- NOTE | 2018-07-08 13:42 | NUR ---
PT ADMITTED RELATED TO ACUTE KIDNEY INJURY. CM REVIEWED CHART AND SPOKE WITH CARE TEAM. CM MET WITH PT AT BEDSIDE THIS DAY. PT IS A&OX4. PT IS BLIND BUT INDICATED THAT HE HAD BEEN INDEPENDENT WITG [employer] COMPANION AND HAD USED A FWW AND A CANE TO ASSIST WITH MOBILITY. PT INDICATED HE LIVES IN A HOUSE WITH HIS WITH THREE STEPS TO ENTER AND NO STEPS INSIDE. HE INDICATED THEY HAVE A NURSE THROUGH [facility] 40HRS PER WEEK. HE INDICATED ONE OF HIS SON'S LIVES ON THE LOWER LEVEL OF HIS HOUSE AND THAT HE MAY BE MOVING OUT BUT THAT ONOTHER FAMILY MEMBER MIGHT MOVE IN TO PROVIDE HIM AND SPOUSE MORE SUPERVISION AND SUPORT. PT INDICATED HE PLANS TO RETURN HOME ONCE MEDICALLY STABLE AND IS RECEPTIVE TO HOME HEALTH SERVICES. CM TO FOLLOW INDICATED WITH DC PLANNING.
--- NOTE | 2018-07-08 13:50 | NUR ---
CARE TEAM INDICATED THAT PT IS MEDICALLY STABLE TO DC HOME THIS DAY. REFERRAL FOR PT, OT, ST, AND NURSING SENT TO [facility]. PT HAS ALL RECOMMENDED DME.
--- NOTE | 2018-07-08 14:00 | NUR ---
Patient to dc today with HHmeghna sent initial referral to [facility].
[2018-07-08 14:09] VITALS: BP 151/74
[2018-07-08 15:00] VITALS: BP 186/83
--- NOTE | 2018-07-08 19:02 | NUR ---
Assumed pt care this am, pt was able to eat with assitance on on his own, Sat on the side of the bed while eating. Blood sugar checks were fluctuating and were remediated with orange juice, glucose tablets and D50 IV push on different occasions through out the shift (as documented in the EMAR). diet is well toilerated and pt had no comnplaints and remained to be asymptomatic with the samuel sugar levels. DC instruction given, CM facilitated home health. awaiting son for machine operator picker. Endorsed to the night nurse.
[2018-07-08 19:46] VITALS: BP 194/80
--- NOTE | 2018-07-08 20:37 | NUR ---
PATIENT DISCHARGED TO HOME WITH ROSELIA (KELLI) VIA CAR AT 2024HRS. DISCHARGE INSTRUCTIONS WERE PROVIDED. NO QUESTIONS OR COMPLAINTS AT THE TIME OF DC FROM PATIENT OR FAMILY.
== END 2018-07-08 20:41 | disposition home health service (06) | DRG 682 ==
LOC: ER 16:28 → 4W 19:22 → EROBS 19:22 → 4W 21:18
PROVIDERS: Emergency Medicine; Nurse Practitioner; Nurse Practitioner Acute Care; ADMIT Hospitalist
DX: N17.9 Acute kidney failure, unspecified (principal); G93.41 Metabolic encephalopathy; Z94.0 Kidney transplant status; E46 Unspecified protein-calorie malnutrition; E78.5 Hyperlipidemia, unspecified; E11.65 Type 2 diabetes mellitus with hyperglycemia; H54.8 Legal blindness, as defined in USA; E11.22 Type 2 diabetes mellitus with diabetic chronic kidney disease; I12.9 Hypertensive chronic kidney disease with stage 1 through stage 4 chronic kidney disease, or unspecified chronic kidney disease; I25.10 Atherosclerotic heart disease of native coronary artery without angina pectoris; E11.649 Type 2 diabetes mellitus with hypoglycemia without coma; E83.42 Hypomagnesemia; N18.3 Chronic kidney disease, stage 3 (moderate); M54.9 Dorsalgia, unspecified; K21.9 Gastro-esophageal reflux disease without esophagitis; Z68.24 Body mass index [BMI] 24.0-24.9, adult; Z95.0 Presence of cardiac pacemaker; Z95.5 Presence of coronary angioplasty implant and graft; I25.2 Old myocardial infarction; Z79.52 Long term (current) use of systemic steroids; Z79.4 Long term (current) use of insulin; Z79.82 Long term (current) use of aspirin; Z79.899 Other long term (current) drug therapy; Z83.3 Family history of diabetes mellitus; Z82.49 Family history of ischemic heart disease and other diseases of the circulatory system
CPT/HCPCS: 10045

== ENCOUNTER 2018-07-10 17:22 | Inpatient (IN) | payer OTHER ==
[~2018-07-10] VITALS: Ht 177.8 cm; Wt 83.5 kg
[~2018-07-10 17:22] MED LIST changes: +LEVEMIR SUBQ; +NOVOLOG100 UNIT/1 SUBQ
[2018-07-10 17:33] VITALS: BP 179/72
[2018-07-10 18:45] LABS: HEMATOCRIT 29.7 % (42.0-52.0); HEMOGLOBIN 9.9 gm/dL (14.0-18.0); MCH 29.2 pg (26.0-34.0); MCHC 33.4 g/dL (28.0-37.0); MCV 87.3 fL (80.0-100.0); PLATELET COUNT 110 thou/uL (150-400); RDW 13.8 % (10.5-14.5); WBC 3.2 thou/uL (4.0-11.0)
[2018-07-10 18:46] LABS: URINE BILIRUBIN NEGATIVE (Negative); URINE BLOOD 3+ (Negative); URINE CLARITY CLEAR; URINE COLOR YELLOW; URINE GLUCOSE-RANDOM* TRACE (Negative); URINE KETONES NEGATIVE (Negative); URINE LEUKOCYTES-REFLEX NEGATIVE (Negative); URINE NITRITE-REFLEX NEGATIVE (Negative); URINE PROTEIN (DIPSTICK) 3+ (Negative); URINE SPECIFIC GRAVITY 1.025 (1.005-1.035); URINE UROBILINOGEN 0.2 E.U./dl (0.2-1.0)
[2018-07-10 18:48] LABS: ANION GAP 4 mmol/L (7-16); BUN 38 mg/dL (7-18); CALCIUM 10.7 mg/dL (8.5-10.1); CHLORIDE 102 mmol/L (98-107); CO2 30 mmol/L (21-32); CREATININE 2.1 mg/dL (0.7-1.3); GLUCOSE 86 mg/dL (74-106); SODIUM 136 mmol/L (136-145)
[2018-07-10 18:54] LABS: AMORPHOUS URATES Many /LPF (None Seen); BACTERIA-REFLEX None Seen /HPF (None Seen); COARSE GRANULAR CASTS 0-3 Few /LPF (None Seen); FINE GRANULAR CASTS 0-3 Few /LPF (None Seen); HYALINE CASTS >10 Many /LPF (None Seen); SQUAMOUS 0-3 Few /LPF (0-3); URINE RBC >20 Many /HPF (0-2); URINE WBC-REFLEX 0-5 Rare /HPF (0-5)
[2018-07-10 18:57] LABS: ALBUMIN 2.9 g/dL (3.4-5.0); SGOT 18 U/L (15-37); SGPT 13 U/L (30-65); TOTAL BILIRUBIN 0.3 mg/dL (<0.1-1.0); TOTAL PROTEIN 5.8 g/dL (6.4-8.2); TROPONIN-I <0.06 ng/mL (<0.06)
[2018-07-10 20:31] VITALS: BP 148/62
[2018-07-10 21:16] VITALS: BP 146/66
[2018-07-11] VITALS (8 sets, daily range): BP systolic 146–180; BP diastolic 49–78
--- NOTE | 2018-07-11 07:58 | NUR ---
Received pt from ED at 2129. Pt denies pain. Very weak. Has trouble maintaining balance by self. 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 He has pacemaker. No skin issues. AOX2. VSS. Incontinent. Dr Meyer has been consulted for Generalized weakness. IV R AC saline lock. ACHS. No identified needs at the moment. Will continue to monitor.
--- NOTE | 2018-07-11 09:01 | EKG ---
[place] [address] [address] [place] [address] ELECTROCARDIOGRAM REPORT Name: ROCKY TEJEDA Room #: 461-P ADM IN M.R.#: [id number] ������������������ Admission: 07/10/18 ������������������ Attend Phys: Gwendolyn Mariscal Discharge: ������������������ Date of : 44 Report #: [id number] ����������������������������������������������������������������� [id number] THIS REPORT FOR: //name// [facility] ED Test Date: 2018-07-10 Test Time: 18:59:03 Pat Name: ROCKY TEJEDA Department: Room: 461 Gender: M Ends Breakage Clerk: sebastian : 1940 Requested By: Vibha Carlson Order Number: [id number] MD: Kavon Koch Measurements Intervals [place] Rate: 60 P: 5 WA: 194 QRS: -63 QRSD: 155 T: 118 QT: 444 QTc: 444 Interpretive Statements Atrial-ventricular dual-paced rhythm No further analysis attempted due to paced rhythm Compared to ECG 07/05/2018 16:37:38 Pacing is now present Electronically Signed On 07-11-2018 9:00:56 CDT by Kavon Koch [email or web address] ��������������������������������������������� <ELECTRONICALLY SIGNED> ���������������������������������������� By: Kavon Koch MD, FAC ��������������������������������������������� 07/11/18 0900 1859 58 Kavon Koch MD, [facility] /EPI
--- NOTE | 2018-07-11 12:54 | NUR ---
PT ADMITTED RELATED TO RENAL INSUFFICIENCY, GEN WEAKNESS, AND ANEMIA. PT HD DISCHARGED HOME 4 DAYS AGO WITH [facility]. PT'S FAMILE INDICATED PT HADN'T BEEN EATING OR TAKING MEDS. CM REVIEWED CHART AND SPOKE WITH CARE TEAM. CM MET WITH PT AT BEDSIDE THIS DAY. PT IS A&OX4. 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 PT INDICATED HE LIVES IN A HOUSE WITH HIS WITH THREE STEPS TO ENTER AND NO STEPS INSIDE. HE INDICATED THEY HAVE A NURSE THROUGH [facility] 40HRS PER WEEK. HE INDICATED ONE OF HIS SON'S LIVES ON THE LOWER LEVEL OF HIS HOUSE. CM TO FOLLOW INDICATED WITH DC PLANNING. CM SPOKE WITH PT'S DPOA AND HE INDICATED THAT THEY WOULD LIKELY BE RECEPTIVE TO A POST ACUTE CARE STAY IF RECOMMENDED UPON DC. CM EMAILED HIM LIST OF SKILLED FACILITIES FOR REVIEW. CM TO HERBIE INDICATED WITH DC PLANNING.
--- NOTE | 2018-07-11 15:30 | NUR ---
Received patient awake on bed. With fistula at right arm. With pacemaker. On blood sugar monitoring AC/HS, pre breakfast CBmg/dl - 3 units Insulin given as prescribed in sliding scale, pre lunch CBG of 152mg/dl - 3 units Insulin as prescribed. Seen by OT/PT today. Lower Extremity compression applied. Patient's son- Daquan called to ask for updates and mentioned that he's concerned about his father's loss of appetite, missing medications and weakness- Patent Clerk and piano case maker informed. Patient started on IV levofloxacin, tried 2x to cannulate patient but veins keep on collapsing, Venous access nurse contacted and able to put IV on right AC. Patient able to sit out on chair for lunch time.
--- NOTE | 2018-07-11 18:26 | NUR ---
DAY SHIFT NURSING NOTES ADDENDUM PATIENT'S SON ROSELIA CALLED AGAIN THIS AFTERNOON AND ASKED FOR UPDATE, UPDATE GIVEN, HIS BROTHER АЛЕКСАНДР CALLED WHILE I WAS WITH ANOTHER PATIENT, ASKED ROSELIA IF OK TO GIVE UPDATES TO АЛЕКСАНДР IF HE CALLS BACK AND IF OK TO INCLUDE HIM TO PATIENT'S RECORD- ROSELIA AGREED. BP OF 163/67 THIS AFTERNOON RELAYED BY PHYSICAL SECURITY MANAGER, RECHECKED AFTER 30 MINUTES, WENT UP TO 172/65, AIR MESSAGED DR. HURST, PRESCRIBED WITH CLONIDINE 0.1MG, GIVEN TO PATIENT, RECHECKED BP: 166/60, RECHECKED AGAIN AFTER AN HOUR, BP: 171/68.
--- NOTE | 2018-07-12 01:54 | NUR ---
Assumed care of pt at 1900. Pt alert and oriented to self. Denies pain. Voided in the urinal at start of shift. States he feels pretty good this hs. Fall precautions in place. Will continue to monitor.
[2018-07-12 04:25] VITALS: BP 193/84
[2018-07-12 05:43] LABS: HEMATOCRIT 30.7 % (42.0-52.0); HEMOGLOBIN 10.2 gm/dL (14.0-18.0); MCH 29.1 pg (26.0-34.0); MCHC 33.4 g/dL (28.0-37.0); MCV 87.1 fL (80.0-100.0); RBC 3.52 mil/uL (4.50-6.00); RDW 13.8 % (10.5-14.5); WBC 3.9 thou/uL (4.0-11.0)
[2018-07-12 06:05] LABS: ALBUMIN 2.9 g/dL (3.4-5.0); CALCIUM 11.6 mg/dL (8.5-10.1); POTASSIUM 5.8 mmol/L (3.5-5.1)
[2018-07-12 06:17] LABS: PHOSPHORUS 4.4 mg/dL (2.5-4.9)
[2018-07-12 06:19] VITALS: BP 141/60
[2018-07-12 07:49] VITALS: BP 160/65
[2018-07-12 12:52] LABS: CREATININE 2.1 mg/dL (0.7-1.3); PHOSPHORUS 4.4 mg/dL (2.5-4.9)
[2018-07-12 14:32] VITALS: BP 126/60
--- NOTE | 2018-07-12 16:45 | NUR ---
Received patient awake on bed. With Saline lock on Right AC. Patient still with weakness, assisted in transferring to chair. Patient's BP in AM 160/65, rechecked: 149/65- Dr Mariscal had his rounds: Furosemide 40mg IV given as prescribed, started patient on Normal saline at 125cc/hr thru Right AC. On blood sugar monitoring pre-meals, pre breakfast CB- no insulin given as per sliding scale, patient had breakfast; pre-lunch CB, 3 units insulin given as prescribed. Pre-dinner CB. With pacemaker. With fistula at left arm. With SCD in place. Patient's son Daquan called this afternoon and asked for update. Requested earlier for his father to have low sodium diet-requested. Might visited this evening, patient informed.
[2018-07-12 19:32] VITALS: BP 184/81
[2018-07-13] VITALS (7 sets, daily range): BP systolic 172–185; BP diastolic 71–93
--- NOTE | 2018-07-13 03:55 | NUR ---
patient aox1 confused and forgetful. patient incontinent this shift, pericare and barrier cream applied as needed. patient turned q 2 hours. patient encouraged snacks. patient denied pain or discomfort. patient in bed asleep at this time breathing regular and unlaboured.
[2018-07-13 04:46] LABS: HEMATOCRIT 30.6 % (42.0-52.0); MCH 28.8 pg (26.0-34.0); MCHC 32.8 g/dL (28.0-37.0); MCV 87.8 fL (80.0-100.0); RBC 3.48 mil/uL (4.50-6.00); WBC 4.2 thou/uL (4.0-11.0)
[2018-07-13 05:04] LABS: ALBUMIN 2.8 g/dL (3.4-5.0); CALCIUM 11.6 mg/dL (8.5-10.1); CREATININE 2.2 mg/dL (0.7-1.3); MAGNESIUM 1.4 mg/dL (1.8-2.4); TOTAL BILIRUBIN 0.5 mg/dL (<0.1-1.0); TOTAL PROTEIN 5.6 g/dL (6.4-8.2)
--- NOTE | 2018-07-13 18:35 | NUR ---
PATIENT SLEPT ALL DAY. NONRESPONIVE TO VERBAL COMMANDS. POCKETING FOOD. NPO AT PRESENT. APPLIED EXTERNAL MALE CATHETER. 500 ML URINE IN CATH. INCONTINENT X 2. NOTIFIED DR. HURST OF CHANGE IN LEVEL OF CONSCIOUSNESS AND MG LEVEL 1.4. MG BOLUS GIVEN IV. STARTED AREDIA INFUSION FOR ELEVATED CALCIUM. UNABLE TO TAKE ANY PO MEDS. STILL WITH ELEVATED BP. MEDICATED WITH HYDRALAZINE WITH NO CHANGE. ORAL CARE GIVEN. PATIENT RESTLESS AND PICKING AT THE AIR. FALL PRECAUTIONS IN PLACE.
[2018-07-14] VITALS (9 sets, daily range): BP systolic 158–192; BP diastolic 81–107
--- NOTE | 2018-07-14 07:43 | NUR ---
PROGRESS PT NOT PROGRESSING VSS, BUT PT LETHARGIC SEDATE AND NOT RESPONDING TO ANYTHING BUT PAINFUL STIMULI. SHAKING WITH DRY MOUTH INCONTINENT OF A LARGE AMOUNT OF URINE. RESPONDED WITH MOANS WHEN TURNED FOR BATHING OPENED EYES A FEW TIMES BUT MOSTLY LAID THERE SHAKING AND NOT RESPONDING, IVF'S INFUISNG ORDERED.
[2018-07-14 08:58] LABS: ALBUMIN 2.8 g/dL (3.4-5.0); CALCIUM 11.4 mg/dL (8.5-10.1); CREATININE 2.4 mg/dL (0.7-1.3); POTASSIUM 5.3 mmol/L (3.5-5.1); TOTAL BILIRUBIN 0.6 mg/dL (<0.1-1.0); TOTAL PROTEIN 5.8 g/dL (6.4-8.2)
--- NOTE | 2018-07-14 11:24 | NUR ---
PT. VISTAL SIGNS STABLE THIS MORNING, HOWEVER PT. HAS HAD SIGNIFICANT MENTATION CHANGE SINCE SUNDAY. TREMORS ARE PRESENT CONSTATNTLY, PT IS NOT RESPONSIVE TO VERBAL COMMANDS. PHYSICIAN CONTACTED AND LABS ORDERED, DX TESTS ORDERED AND PT TRANSFERRED TO CCU. REPORT CALLED TO UBA, PHYSICIAN NOTIFIED FAMILY.
--- NOTE | 2018-07-14 14:15 | NUR ---
PATIENT TRANSFERED FROM 4W, RESPONDING TO SOME VERBAL COMMANDS. BP ELEVATED AND MEDICATED INDICATED. DR HURST NOTIFIED ABOUT PATIENT LABS AND BP. AND WILL CONTINUE WITH POC.
[2018-07-14 15:34] LABS: BE(vivo) -5.2 mmol/L (-2 to +3); HCO3 19.7 mmol/L (22.0-26.0); PCO2 36.3 mmHg (35.0-45.0); PO2 82.4 mmHg (80.0-100.0); pH 7.353 (7.360-7.450); sO2 95.8 % (92.0-98.0)
--- NOTE | 2018-07-14 20:33 | NUR ---
PT DISCHARGED VIA AMBULANCE TO [facility] 34 ICU,DAUGHTER PRESENT AT THE TIME OF DISCHARGE/TRANSFER.[facility] STAFF NOTED THAT PT IS ENROUTE.ALL PT'S BELONGINGS DISPOSED TO PT.NO CONCERNS VOICED AT THIS TIME.WILL CONT TO MONITOR PER POC.
--- NOTE | 2018-07-15 12:04 | HC ---
[facility] [place] [address] CONSULTATION Name: ROCKY TEJEDA Room #: 201-P [facility] IN .R.#: [id number] Admission: 07/10/18 ������������������ Attend Phys: Gwendolyn Mariscal Discharge: 07/14/18 ������������������ Date of : 42 Report #: [id number] THIS REPORT FOR: //name// CC: BHAVIK physician/PCP Gwendolyn Mariscal DATE OF SERVICE: 07/14/2018 HISTORY OF PRESENT ILLNESS: This is a 77-year-old male patient who was evaluated by me for altered mental status. Initially, I reviewed this patient's records and talked to the nurse looking after this patient. She has just received this patient in CCU. She talked to the other nurses and they indicated that this patient was much more responsive on Sunday and since then, the patient is not responsive. The patient who is not able to provide any history and rather did not say anything. I talked to the nurses to see if they have given any sedation to the patient and she indicated that she has not given any sedation to the patient. Subsequently, the patient's son came and he indicated that this patient had a renal transplant. He was here in this hospital and then was subsequently dismissed and his condition started deteriorating sometime on . He said he cannot see anything, but prior to that he was able to live with the family. He has aid during the day, but at night family take care of him. He indicated he was able to feed himself, but since then, this patient has mostly become unresponsive. REVIEW OF SYSTEMS: Mostly from the record as well as talking to the patient's son. He indicates that he has complained of some weakness, but symptoms are mostly nonspecific. He has a history of fever and he did have some temperature during the hospitalization. ID is already consulted. He is immune suppressed. He does have renal problem. His platelet counts are low. He has a history of atelectasis and subjective weakness. He also has a history of hypertension. He has a history of pacemaker. It was put recently and I suspect it might be compatible with the MRI, but we need to check that. He does have a history of diabetes. PHYSICAL EXAMINATION: Limited. He is not responsive. He did not say anything to me and he will not follow any commands. I tried to look at the pupil, I cannot do that because he has a pretty significant baseline problem with his eyes. In fact, he is legally blind. I cannot tell if he moves anything because he does not follow any commands, all of it made the examination very difficult. He does not appear to be in any respiratory distress. His blood pressure is high at 191/101. His blood pressure was high earlier in the morning also. His pulse is 107 and it has been running like that since yesterday and before that it was more than that. [address] [address] CONSULTATION Name: ROCKY TEJEDA Room #: 201-P DIS IN M.R.#: [id number] Admission: 07/10/18 ������������������ Attend Phys: Gwendolyn Mariscal Discharge: 07/14/18 ������������������ Date of : 42 Report #: [id number] LABORATORY DATA: His last GFR was 32. His last calcium was 11.4, but that has been high even before. IMPRESSION: This is a complicated case. 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 That is concerning. That needs to be addressed. He will need further workup for that. He needs an MRI, but we need to call the company and set it up because he has a pacemaker and therefore, MRI need to be set up. He also may be septic and his creatinine is deteriorating and he may have some metabolic encephalopathy, also. RECOMMENDATIONS: 1. I will suggest an emergent neurosurgical consult in this patient to evaluate the cerebellar mass and make sure he is not trying to herniate and if he is option here is going to be limited because with the kidney problem , we are reluctant to give mannitol. I called Dr. Mariscal and discussed that aspect with him and I suggested an emergent transfer to a facility where Neurosurgery is available and talked to them see what they would like us to do before we transfer him. 2. He does need some further workup. 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 He should have Neurosurgery consult and we need to see what they say. 3. I agree with the plan that he needs workup for any opportunistic infection. However, until this mass is addressed he should not have spinal tap and if it does it should not be in this institution because if he herniate we need neurosurgical backup. Best is for him not to have spinal tap because posterior fossa mass is a contraindication for a spinal tap. This patient needs a higher level of care and I talked to Dr. Mariscal and he is going to arrange an emergent transfer to a facility where Neurosurgery is available. Thank you very much for this referral. Time spent more than 35 minutes, majority of that counseling and coordinating his care. ��������������������������������������������� <ELECTRONICALLY SIGNED> ���������������������������������������� By: Johnie Cai MD ��������������������������������������������� 07/15/18 1204 1350 0601 Johnie Cai MD /nt
[2018-07-15 12:05] LABS: KAPPA FREE LIGHT CHAINS 52.5 mg/L (3.3-19.4); KAPPA/LAMBDA RATIO 1.97 (0.26-1.65); LAMBDA FREE LIGHT CHAINS 26.6 mg/L (5.7-26.3)
--- NOTE | 2018-07-15 12:05 | EEG ---
[facility] [place] [address] ELECTROENCEPHALOGRAM Name: ROCKY TEJEDA Room #: 201-P [facility] IN M.R.#: [id number] ������������������ Admission: 07/10/18 ������������������ Attend Phys: Gwendolyn Campbell Discharge: 07/14/18 ������������������ Date of : 42 Report #: [id number] ����������������������������������������������������������������� [id number] THIS REPORT FOR: //name// CC: BHAVIK physician/PCP Gwendolyn Mariscal DATE OF SERVICE: 07/14/2018 This patient is being evaluated for altered mental status. EEG was done by placing the electrodes by standard 10-20 system of electrode placement. Both referential and sequential montages were used for recording. Background activity in this patient's EEG is about 7 Hz and 30 microvolt. Photic stimulation is unremarkable. Throughout the record, no active epileptiform activity was noticed. IMPRESSION: This is an abnormal electroencephalogram because it is disorganized and poorly formed. That is a nonspecific abnormality, which can occur with encephalopathy, effect of psychotropic medication, dementia, etc. Clinical correlation is recommended. No active epileptiform activity was noticed during this record. ���������������������������������������� <ELECTRONICALLY SIGNED> ���������������������������������������� By: Johnie Cai MD ��������������������������������������������� 07/15/18 1205 1335 1623 Johnie Cai MD /nt
[2018-07-15 18:08] LABS: GLOBULIN TOTAL 2.3 g/dL (2.2-3.9); M-SPIKE Not Observed g/dL (Not Observed)
== END 2018-07-14 19:48 | disposition short-term general hospital (02) | DRG 70 ==
LOC: ER 17:22 → EROBS 20:19 → 4W 20:19 → 2N 07-14 10:59
PROVIDERS: Physician Assistant; ADMIT Hospitalist
DX: G93.89 Other specified disorders of brain (principal); E43 Unspecified severe protein-calorie malnutrition; G93.41 Metabolic encephalopathy; J18.9 Pneumonia, unspecified organism; I44.2 Atrioventricular block, complete; D61.818 Other pancytopenia; J98.11 Atelectasis; I12.0 Hypertensive chronic kidney disease with stage 5 chronic kidney disease or end stage renal disease; C90.00 Multiple myeloma not having achieved remission; Z94.0 Kidney transplant status; E78.5 Hyperlipidemia, unspecified; H54.8 Legal blindness, as defined in USA; E11.22 Type 2 diabetes mellitus with diabetic chronic kidney disease; R31.9 Hematuria, unspecified; M62.84 Sarcopenia; K21.9 Gastro-esophageal reflux disease without esophagitis; E83.52 Hypercalcemia; Z79.4 Long term (current) use of insulin; I25.2 Old myocardial infarction; Z79.899 Other long term (current) drug therapy; Z79.82 Long term (current) use of aspirin; Z95.0 Presence of cardiac pacemaker; Z83.3 Family history of diabetes mellitus; Z68.26 Body mass index [BMI] 26.0-26.9, adult; N18.9 Chronic kidney disease, unspecified
CPT/HCPCS: 10040

== ENCOUNTER 2018-09-25 12:01 | Inpatient (IN) | payer OTHER ==
[~2018-09-25] VITALS: Ht 180.3 cm; Wt 79.7 kg
[2018-09-25] VITALS (7 sets, daily range): BP systolic 134–161; BP diastolic 58–82
[2018-09-25 12:40] LABS: URINE BILIRUBIN NEGATIVE (Negative); URINE BLOOD 2+ (Negative); URINE CLARITY CLOUDY; URINE COLOR YELLOW; URINE GLUCOSE-RANDOM* NEGATIVE (Negative); URINE KETONES NEGATIVE (Negative); URINE LEUKOCYTES-REFLEX 3+ (Negative); URINE NITRITE-REFLEX NEGATIVE (Negative); URINE PROTEIN (DIPSTICK) 3+ (Negative); URINE SPECIFIC GRAVITY 1.025 (1.005-1.035); URINE UROBILINOGEN 0.2 E.U./dl (0.2-1.0)
[2018-09-25 12:47] LABS: HYALINE CASTS 0-3 Few /LPF (None Seen); SQUAMOUS 0-3 Few /LPF (0-3); URINE RBC 3-10 Few /HPF (0-2); URINE WBC-REFLEX >25 Many /HPF (0-5); YEAST-REFLEX Present (None Seen)
[2018-09-25 12:48] LABS: AMORPHOUS URATES Moderate /LPF (None Seen); BACTERIA-REFLEX >30 Many /HPF (None Seen)
[2018-09-25 13:09] LABS: ABSOLUTE NEUTROPHILS 3.4 thou/uL (1.4-8.2); BASOPHILS 0.5 % (0.0-2.0); EOSINOPHILS 4.5 % (0.0-3.0); HEMATOCRIT 21.4 % (42.0-52.0); HEMOGLOBIN 7.2 gm/dL (14.0-18.0); LYMPHOCYTES 27.6 % (24.0-44.0); MCH 29.9 pg (26.0-34.0); MCHC 33.5 g/dL (28.0-37.0); MCV 89.2 fL (80.0-100.0); MONOCYTES 9.2 % (1.0-8.0); PLATELET COUNT 223 thou/uL (150-400); POLYS 58.2 % (36.0-66.0); RDW 14.7 % (10.5-14.5); WBC 5.9 thou/uL (4.0-11.0)
[2018-09-25 13:16] LABS: ANION GAP 3 mmol/L (7-16); BUN 67 mg/dL (7-18); CHLORIDE 95 mmol/L (98-107); CO2 31 mmol/L (21-32); CREATININE 1.7 mg/dL (0.7-1.3); GLUCOSE 91 mg/dL (74-106); POTASSIUM 4.2 mmol/L (3.5-5.1); SODIUM 129 mmol/L (136-145)
[2018-09-25 13:26] LABS: SGOT 48 U/L (15-37); SGPT 72 U/L (30-65); TOTAL BILIRUBIN 0.2 mg/dL (<0.1-1.0); TOTAL PROTEIN 6.3 g/dL (6.4-8.2); TROPONIN-I <0.06 ng/mL (<0.06)
[2018-09-25] MEDS ORDERED: PREDNISONE 5 MG5 M1 PO (14:58)
[2018-09-25] MEDS ORDERED: IPRAT-ALBUT 0.5-3 ML INH (14:59)
[2018-09-25] MEDS ORDERED: GABAPENTIN 100100 MG PO (14:59)
[2018-09-25] MEDS ORDERED: TUMS PO (15:00)
[2018-09-25 15:25] LABS: % SATURATION 10 % (20-39); IRON 20 ug/dL (65-175); TIBC 207 ug/dL (250-450)
--- NOTE | 2018-09-25 15:52 | 2DMMODE ---
[facility] [employer] [place] [address] 2 D/M-MODE ECHOCARDIOGRAM Name: ROCKY TEJEDA Room #: 170-10 ADM IN [facility]#: [id number] ������������� Admission: 09/25/18 ������������� Attend Phys: Israel Catherine MD Discharge: ��� ������������� ��� Date of : 44 Date of Service: 09/25/18 1551 �� Report #: [id number] �������� ��������������������������������������������[id number] THIS REPORT FOR: //name// APPROVED REPORT Study performed: 09/25/2018 15:11:51 EXAM: Comprehensive 2D, Doppler, and color-flow Echocardiogram Patient Location: ER Room #: 10 Status: routine BSA: 2.06 HR: 68 bpm BP: 158/58 mmHg Rhythm: Pacemaker Other Information Study Quality: Good Indications Congestive Heart Failure Diabetes Pacemaker Hypertension/HDD 2D Dimensions RVDd: 37.96 mm IVSd: 12.13 (7-11mm) LVOT Diam: 22.77 (18-24mm) LVDd: 47.29 mm PWd: 11.76 (7-11mm) Ascending Ao: 29.86 (22-36mm) LVDs: 31.32 (25-40mm) Aortic Root: 29.36 mm IVC: 24.00 mm Volumes Left Atrial Volume (Systole) Single Plane 4CH: 63.61 mL Single Plane 2CH: 63.87 mL LA ESV Index: 39.00 mL/m2 Aortic Valve AoV Peak Jose Alfredo.: 1.29 m/s AO Peak Gr.: 6.61 mmHg LVOT Max P.36 mmHg LVOT Max V: 0.92 m/s DIANA Vmax: 2.90 cm2 Mitral Valve [facility] [address] [place] [address] 2 D/M-MODE ECHOCARDIOGRAM Name: ROCKY TEJEDA Room #: 170-10 ADM IN [facility]#: [id number] ������������� Admission: 09/25/18 ������������� Attend Phys: Israel Catherine MD Discharge: ��� ������������� ��� Date of : 44 Date of Service: 09/25/18 1551 �� Report #: [id number] �������� ��������������������������������������������[id number] E/A Ratio: 1.1 MV Decel. Time: 219.46 ms MV E Max Jose Alfredo.: 1.01 m/s MV A Jose Alfredo.: 0.93 m/s MV PHT: 63.64 ms IVRT: 96.89 ms Pulmonary Valve PV Peak Jose Alfredo.: 0.81 m/s PV Peak Gr.: 2.65 mmHg Pulmonary Vein P Vein S: 0.55 m/s P Vein A: 0.22 m/s P Vein D: 0.41 m/s P Vein A Dur.: 115.3 msec P Vein S/D Ratio: 1.34 Tricuspid Valve TR Peak Jose Alfredo.: 2.71 m/s TR Peak Gr.: 29.35 mmHg PA Pressure: 39.00 mmHg Left Ventricle The left ventricle is normal size. There is normal LV segmental wall motion. Mild concentric left ventricular hypertrophy. The left ventricular systolic function is normal. The left ventricular ejection fraction is within the normal range. LVEF is 55-60%. This study is not technically sufficient to allow evaluation of the LV diastolic function. Right Ventricle The right ventricle is normal size. The right ventricular systolic function is normal. Pacemaker lead is present in the right ventricle. Atria Left atrium is dilated. Right atrium is at the upper limits of normal. Pacemaker lead is present in the right atrium. Aortic Valve The aortic valve is mildly sclerotic No aortic regurgitation is present. There is no aortic valvular stenosis. Mitral Valve The mitral valve is normal in structure. Mild mitral regurgitation. No evidence of mitral valve stenosis. Tricuspid Valve The tricuspid valve is normal in structure. There is mild tricuspid [facility] [address] [place] [address] 2 D/M-MODE ECHOCARDIOGRAM Name: ROCKY TEJEDA Room #: 170-10 [facility] IN [facility]#: [id number] ������������� Admission: 09/25/18 ������������� Attend Phys: Israel Catherine MD Discharge: ��� ������������� ��� Date of : 44 Date of Service: 09/25/18 1551 �� Report #: [id number] �������� ��������������������������������������������[id number] regurgitation. Estimated PAP 40 mmHg. There is mild pulmonary hypertension. Pulmonic Valve The pulmonary valve is normal in structure. There is no pulmonic valvular regurgitation. Great Vessels The aortic root is normal in size. IVC is dilated and collapses <50% with inspiration. Pericardium There is no pericardial effusion. <Conclusion> The left ventricular systolic function is normal. There is normal LV segmental wall motion. LVEF is 55-60%. Left atrium is dilated. Right atrium is at the upper limits of normal. Pacemaker lead in right heart The aortic valve is mildly sclerotic. No aortic regurgitation or stenosis The mitral valve is normal in structure. Mild mitral regurgitation. There is mild tricuspid regurgitation. Estimated pulmonary artery pressure of 40 mmHg. There is no pericardial effusion. ��������������������������������������������� <ELECTRONICALLY SIGNED> ���������������������������������������� By: Kavon Koch MD, FACC ��������������������������������������������� 09/25/18 1551 1551 1551 Kavon Koch MD, FACC /INF
--- NOTE | 2018-09-25 19:22 | NUR ---
Assumed came to unit approx 1600. Pt feeling tired. Pt's son at bedside. Son DPOA. Peg tube in place. Pressure on on left heel. New border foam dressing applied. Pictures in chart. Wound care consulted. Pt blood sugar on floor 56. Given nectar thick apple juice. Blood sugar up to 77. Dr notified. Report given to greg MAY.
[2018-09-25] MEDS ORDERED: TYLENOL325 MG PO (20:15)
[2018-09-25] MEDS ORDERED: HUMALOG100 UNIT/1 SUBQ (20:17)
[2018-09-25] MEDS ORDERED: LEVEMIR SUBQ (20:18)
[2018-09-25] MEDS ORDERED: CARVEDILOL12.5 MG PO (20:19)
[2018-09-25] MEDS ORDERED: NORVASC5 MG PO (20:20)
[2018-09-25] MEDS ORDERED: VITAMINC500 PO (20:21)
[2018-09-25] MEDS ORDERED: LASIX 40 MG TAB40 M2 PO (20:22)
[2018-09-26 03:45] VITALS: BP 144/69
[2018-09-26 07:24] LABS: CALCIUM 9.9 mg/dL (8.5-10.1); CREATININE 1.7 mg/dL (0.7-1.3); POTASSIUM 4.2 mmol/L (3.5-5.1)
--- NOTE | 2018-09-26 07:29 | NUR ---
Assumed care at 1845. Pt resting in bed. AOX3. VSS. Flushed Peg Tube Q4H with water. Turn Q2. Gave medication with nectar thick. Blood sugar stable. No identified needs at the moment. Will continue to monitor.
[2018-09-26 07:30] VITALS: BP 160/57
--- NOTE | 2018-09-26 09:39 | EKG ---
[place] [address] [place] [address] ELECTROCARDIOGRAM REPORT Name: ROCKY TEJEDA Room #: 359-P ADM IN M.R.#: [id number] ������������������ Admission: 09/25/18 ������������������ Attend Phys: Israel Catherine MD Discharge: ������������������ Date of : 44 Report #: [id number] ����������������������������������������������������������������� [id number] THIS REPORT FOR: //name// [facility] ED Test Date: 2018-09-25 Test Time: 13:03:32 Pat Name: ROCKY TEJEDA Department: Room: 359 Gender: M Tankroom Tender: YARELY : 1940 Requested By: Pooja Adhikari Order Number: [id number] MD: Kavon Koch Measurements Intervals Drummond Rate: 69 P: 4 GA: 284 QRS: -83 QRSD: 144 T: 54 QT: 420 QTc: 450 Interpretive Statements Sinus rhythm Prolonged GA interval RBBB and LAFB Compared to ECG 07/10/2018 18:59:03 AV dual-paced complex(es) or rhythm no longer present Electronically Signed On 09-26-2018 9:38:50 CDT by Kavon Koch [email or web address] ��������������������������������������������� <ELECTRONICALLY SIGNED> ���������������������������������������� By: Kavon Koch MD, [facility] ��������������������������������������������� 09/26/18 0938 1303 1303 Kavon Koch MD, [facility] /EPI
--- NOTE | 2018-09-26 09:56 | EKG ---
[place] [address] [address] [place] [address] ELECTROCARDIOGRAM REPORT Name: ROCKY TEJEDA Room #: 359-P ADM IN M.R.#: [id number] ������������������ Admission: 09/25/18 ������������������ Attend Phys: Israel Catherine MD Discharge: ������������������ Date of : 44 Report #: [id number] ����������������������������������������������������������������� [id number] THIS REPORT FOR: //name// [facility] Test Date: 2018-09-26 Test Time: 08:12:42 Pat Name: ROCKY TEJEDA Department: Room: 359 P Gender: M Correctional Officer Chief: : 1940 Requested By: Kavon Koch Order Number: [id number] MD: Kavon Koch Measurements Intervals Eddy Rate: 70 P: 57 MO: 254 QRS: 128 QRSD: 144 T: -1 QT: 423 QTc: 457 Interpretive Statements Sinus rhythm Prolonged MO interval RBBB and LPFB Compared to ECG 07/10/2018 18:59:03 No significant change was found Electronically Signed On 09-26-2018 9:56:11 CDT by Kavon Koch [email or web address] ��������������������������������������������� <ELECTRONICALLY SIGNED> ���������������������������������������� By: Kavon Koch MD, [facility] ��������������������������������������������� 09/26/18 0956 1 1 Kavon Koch MD, [facility] /EPI
[2018-09-26 11:29] VITALS: BP 153/98
--- NOTE | 2018-09-26 11:51 | NUR ---
ASSUMED CARE OF PT AT 0700. ASSESSMENT CHARTED. BLIND AND [place]. PT FOLLOWS COMMANDS APPROPRIATELY, SOFT TOUCH CALL LIGHT AT BS. [address], NO SOA RESTING. PACEMAKER IN PLACE. US RIGHT ARM IDENTIFIED THROMBOSIS, LAURA IV IN PLACE. CLARIFIED WITH DR. ARTEAGA OKAY TO USE IV. PEG TUBE IN PLACE, TUBE FEEDINGS ORDERED IF PT EATS <50%, NO OTHER DIET ORDERS AVAILABLE. DR. ARTEAGA NOTIFIED ABOUT DIET, NEW MECHANICAL ALT DIET ORDERED VIA TELEPHONE RB. NO DIFFICULTY SWALLOWING NOTED. LEFT HEEL WOUND, DRESSING CHANGED ORDERED. WILL CONTINUE TO MONITOR.
[2018-09-26 16:45] VITALS: BP 136/70
[2018-09-26 20:00] VITALS: BP 150/89
[2018-09-27 03:59] VITALS: BP 128/51
[2018-09-27 05:06] LABS: HEMATOCRIT 23.2 % (42.0-52.0); HEMOGLOBIN 7.7 gm/dL (14.0-18.0); MCH 29.5 pg (26.0-34.0); MCHC 33.2 g/dL (28.0-37.0); RBC 2.61 mil/uL (4.50-6.00); RDW 14.9 % (10.5-14.5); WBC 6.9 thou/uL (4.0-11.0)
--- NOTE | 2018-09-27 05:06 | NUR ---
NO ACUTE CHANGES OVERNIGHT, PT PLEASANT AND COOPERATIVE, FREQUENT REPOSITIONING DONE. PRAFO BOOTS TO BILAT FEET, SCD ON. URINE OUTOUT ADEQUATE, NO BM. PEG FLUSHES EASILY. SWALLOW PRECAUTIONS OBSERVED PT SWALLOWS WITHOUT DIFFICULTY.
[2018-09-27 05:18] LABS: ALBUMIN 1.9 g/dL (3.4-5.0); CALCIUM 9.2 mg/dL (8.5-10.1); CREATININE 1.9 mg/dL (0.7-1.3); PHOSPHORUS 5.3 mg/dL (2.5-4.9); POTASSIUM 4.3 mmol/L (3.5-5.1)
[2018-09-27 07:18] VITALS: BP 159/69
--- NOTE | 2018-09-27 08:48 | HC ---
[facility] [place] [address] [place] [address] CONSULTATION Name: ROCKY TEJEDA Room #: 359-P ADM IN M.R.#: [id number] Admission: 09/25/18 ������������������ Attend Phys: Israel Catherine MD Discharge: ������������������ Date of : 42 Report #: [id number] THIS REPORT FOR: //name// CC: FAM unknown Israel Catherine REASON FOR CONSULTATION: Renal transplant. REASON FOR PRESENTATION: Not feeling well. HISTORY OF PRESENT ILLNESS: This is a very well-known patient to me from repeated previous hospitalizations. He is a renal transplant patient, was maintained on triple immunosuppressive regimen. He had been seeing Dr. Bennett in our clinic and then switched to the [facility]. His baseline creatinine is around 1.7. He presented not feeling well yesterday and was found to have a DVT of the upper extremity and was admitted accordingly. He denies any chest pain or shortness of breath. No nausea or vomiting. He did have some bilateral lower extremity edema. At presentation, creatinine was 1.7, which is very close to his baseline.Patient was recently hospitalized at [facility] for a cerebral massor abscess. The details of that hospitasl stay is not available for me. PAST MEDICAL HISTORY: 1. Status post cadaveric renal transplantation in 2002. 2. Diabetes mellitus. 3. Hypertension. 4. Coronary artery disease. 5. Hyperlipidemia. 6. Status post pacemaker insertion. 7.recent prolonged hospital stay at [facility] for a cerebral mass or abscess MEDICATIONS: 1. Prednisone. 2. Aspirin. 3. Tacrolimus. 4. Mycophenolate. 5. Lasix. 6. Lisinopril. 7. Metoprolol. FAMILY HISTORY: Significant for diabetes mellitus and hypertension. REVIEW OF SYSTEMS: GENERAL: No fever, but significant for weakness. CARDIOVASCULAR: No chest pain or palpitation. PULMONARY: No cough or hemoptysis. [facility] [address] [place] [address] CONSULTATION Name: ROCKY TEJEDA Room #: 359-P [facility] IN [facility]#: [id number] Admission: 09/25/18 ������������������ Attend Phys: Israel Catherine MD Discharge: ������������������ Date of : 44 Report #: [id number] GASTROINTESTINAL: No nausea or vomiting. GENITOURINARY: No frequency, no urgency. MUSCULOSKELETAL: As per the history of present illness. ALLERGIES: PENICILLIN. PHYSICAL EXAMINATION: GENERAL: He is alert, oriented. VITAL SIGNS: Temperature 36.6, blood pressure 144/69. HEAD AND NECK: No jugular venous distention. CHEST: Decreased air entry bilaterally. CARDIOVASCULAR: No rub detected. ABDOMEN: Soft, nontender. EXTREMITIES: Lower extremities, +1 edema. Upper extremities, +1 edema. LABORATORY VALUES: Reviewed. Hemoglobin 7.2. Sodium 129, potassium 4.2, BUN is 67, creatinine is 1.7. ASSESSMENT, IMPRESSION, PLAN: 1. Chronic kidney disease. 2. Status post renal transplantation. 3. Diabetes mellitus. 4. Hypertension. 5. Hyponatremia. 6. Anemia. 7. The patient's creatinine is stable at baseline. We will convert the patient on oral diuretic regimen. 8. I need to obtain his [facility] hospital records 9. Salt and fluid restriction. 10. Resume his blood pressure medication. 11. Resume his immunosuppressive medications. 12. Gentle diuresis. 13. Management of other comorbid conditions per primary team. 14.cephalic vein thrombosis is in no need for long-term anticoagulation ��������������������������������������������� <ELECTRONICALLY SIGNED> ���������������������������������������� By: Radha Gillespie MD ��������������������������������������������� 09/27/18 0848 0707 1047 Radha Gillespie MD /nt
[2018-09-27 17:04] VITALS: BP 178/64
--- NOTE | 2018-09-27 18:23 | NUR ---
ASSUMED CARE OF PT AT 0700. PT HAS BEEN A&O TO PERSON AND PLACE TODAY. PT HAS BEEN DROWSEY/LETHARGIC TODAY, BUT CALM AND COOPERATIVE. PER CONVERSATION WITH PT'S SON, ROSELIA, PT'S LETHARGY IS NOT HIS NORMAL BASELINE. TYPICALLY PT IS MUCH MORE ALERT. PT COMPLAINED OF PAIN X1 TODAY, MILD HEADACHE. THIS MORNING PT COMPLAINED OF NAUSEA AND PRN MEDICATION WAS GIVEN. NO FURTHER COMPLAINTS. REMAINS ON 3L NC. PT HAS NOT BEEN EATING FROM TRAY TODAY. PER DIETARY ORDER, PT HAS BEEN GIVEN NEPRO VIA BOLUS TUBE FEED. WATER FLUSHES ALSO PROVIDED. Q2H TURNS PROVIDED. PRAFO BOOTS AND SCDs ALSO IN PLACE BILATERALLY. PER RENAL REQUEST, MEDICAL RECORDS REQUESTED FROM [facility]. STILL PENDING. PT IS SLOWLY PROGRESSING TOWARD POC GOALS. WILL CONTINUE TO MONITOR AND ASSESS.
[2018-09-27 19:37] VITALS: BP 180/64
[2018-09-27 23:06] LABS: GLYCOHEMOGLOBIN (HGB A1C) 5.7 % (4.8-5.6)
--- NOTE | 2018-09-28 04:18 | NUR ---
resting quietly tonight. needs assist with the urinal, but is able to call for help. careplan reviewed. encouraged turning side to side. denies pain.
[2018-09-28 04:31] VITALS: BP 167/59
[2018-09-28 06:03] LABS: ALBUMIN 1.9 g/dL (3.4-5.0); CALCIUM 8.8 mg/dL (8.5-10.1); CREATININE 2.1 mg/dL (0.7-1.3); PHOSPHORUS 4.6 mg/dL (2.5-4.9); POTASSIUM 4.1 mmol/L (3.5-5.1)
[2018-09-28 08:06] VITALS: BP 135/44
[2018-09-28 11:33] VITALS: BP 144/105
--- NOTE | 2018-09-28 14:44 | NUR ---
Assumed care of Pt at 0700. Pt AOx1-2 in no acute distress. needs assistance using urinal. small bm this morning. ate approx 50% of breakfast and 25% of lunch - supplemented with tube feed per order. turned Q2H and PRN. iv iron and abx infusing per order. labs showing improvement. no other changes to report. pt progressing toward poc goals.
[2018-09-28 16:17] VITALS: BP 149/84
[2018-09-28 20:00] VITALS: BP 144/51
[2018-09-29 04:00] VITALS: BP 144/68
--- NOTE | 2018-09-29 04:08 | NUR ---
PATIENT IS PROGRESSING SLOWLY IN HIS CARE PLAN. VITAL SIGNS STABLE WITH PATIENT HAVING NO COMPLAINTS OF NAUSEA. PATIENT DID COMPLAIN OF HEADACHE WHICH WAS APPROPRIATELY TREATED WITH MEDICATION AND NON PHARMACOLOGICAL INTERVENTIONS. ORIENTED TO SELF AND SITUATION ONLY, PATIENT IS ABLE TO CALL FOR NEEDS. BREATHING STABLE ON OXYGEN EVIDENCED BY SPOT OXYGENATION CHECKS. WOUND DRESSING CLEAN, DRY AND INTACT. PATIENT WAS TURNED FREQUENTLY WITH SKIN CARE PROVIDED. ADEQUATE OUTPUT THROUGH EXTERNAL CATHETER. CONTINUE PLAN OF CARE.
[2018-09-29 05:44] LABS: HEMATOCRIT 21.7 % (42.0-52.0); HEMOGLOBIN 7.3 gm/dL (14.0-18.0); MCH 30.4 pg (26.0-34.0); MCHC 33.5 g/dL (28.0-37.0); MCV 90.6 fL (80.0-100.0); RBC 2.4 mil/uL (4.50-6.00); RDW 15.2 % (10.5-14.5)
[2018-09-29 06:11] LABS: ALBUMIN 1.9 g/dL (3.4-5.0); CALCIUM 8.7 mg/dL (8.5-10.1); CREATININE 2.6 mg/dL (0.7-1.3); PHOSPHORUS 4.7 mg/dL (2.5-4.9)
[2018-09-29 07:14] VITALS: BP 143/47
[2018-09-29 11:12] VITALS: BP 153/50
[2018-09-29 16:07] VITALS: BP 169/65
--- NOTE | 2018-09-29 17:21 | NUR ---
pt's assessment has done, pt knows his name and birthday, pt is cooperaive, pt needs help ADL and change position, pt 's vs and bs are stable at this time.pt is contning iv ABT and o2 2L/MIN/NC, PT denies pain at this time.
[2018-09-29 19:40] VITALS: BP 166/71
[2018-09-30 04:11] LABS: HEMATOCRIT 23.9 % (42.0-52.0); HEMOGLOBIN 7.9 gm/dL (14.0-18.0); MCH 30.2 pg (26.0-34.0); MCHC 33.2 g/dL (28.0-37.0); RBC 2.62 mil/uL (4.50-6.00); RDW 15.2 % (10.5-14.5); WBC 7.7 thou/uL (4.0-11.0)
[2018-09-30 04:25] LABS: CALCIUM 8.7 mg/dL (8.5-10.1); CREATININE 2.9 mg/dL (0.7-1.3); PHOSPHORUS 4.8 mg/dL (2.5-4.9); POTASSIUM 4.2 mmol/L (3.5-5.1)
[2018-09-30 04:30] VITALS: BP 173/62
--- NOTE | 2018-09-30 05:20 | NUR ---
PATIENT IS PROGRESSING SLOWLY IN HIS CARE PLAN. VITAL SIGNS STABLE WITH PATIENT HAVING NO COMPLAINTS OF PAIN OR NAUSEA. ORIENTED TOMES TWO TO THREE, PATIENT IS ABLE TO CALL APPROPRIATELY FOR NEEDS AND PARTICIPATE IN CARE. BREATHING STABLE ON LOW LEVEL OXYGEN EVIDENCED BY SPOT OXYGENATION CHECKS. FREQUENT TURNS WITH SKIN CARE PROVIDED. PATIENT DID PRODUCE ADEQUATE OUTPUT THROUGH EXTERNAL CATHETER. CONTINUE PLAN OF CARE.
[2018-09-30 07:22] VITALS: BP 175/67
--- NOTE | 2018-09-30 08:33 | HC ---
[facility] [place] [address] CONSULTATION Name: ROCKY TEJEDA Room #: 359-P [facility] IN .R.#: [id number] Admission: 09/25/18 ������������������ Attend Phys: Israel Catherine MD Discharge: ������������������ Date of : 42 Report #: [id number] THIS REPORT FOR: //name// CC: FAM unknown Israel Catherine REASON FOR CONSULTATION: Shortness of breath. HISTORY OF PRESENT ILLNESS: The patient is a 77-year-old gentleman with a history of coronary artery disease with remote stenting. He has a history of remote cadaveric renal transplantation for which he has been maintained on immunosuppressants. He has a history of longstanding diabetes and pacemaker implantation for heart block in 03/2018. His ejection fraction in 2019 was normal without significant valvular heart disease. He now presents with increasing shortness of breath and orthopnea. He is a resident at [facility]. Apparently, an AV fistula has been recently placed in anticipation of resuming dialysis after being off for several decades. He denies chest heaviness, pressure, or ischemic type symptoms. His pre-stenting symptom was typical angina type chest pressure. He does report right arm swelling. He denies fevers or chills. ALLERGIES: No known drug allergies. MEDICATIONS: Include metoprolol tartrate 50 mg twice daily, tacrolimus 4 mg twice daily, lisinopril 10 mg daily, CellCept 500 mg twice daily, aspirin, Prilosec, rosuvastatin 20 mg daily, prednisone 5 mg daily, Atrovent albuterol inhaler, and gabapentin. PAST MEDICAL HISTORY: Medical records have been reviewed and include longstanding history of diabetes since 1978 with diabetic nephropathy and retinopathy, kidney transplant in 2000, dyslipidemia, coronary artery disease with multivessel stenting in 2006. SOCIAL HISTORY: He is a nonsmoker, nondrinker. 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 FAMILY HISTORY: Notable for both parents with coronary artery disease. REVIEW OF SYSTEMS: All systems negative except as that noted above. PHYSICAL EXAMINATION: GENERAL: This is a pleasant gentleman. He was alert. He is blind. VITAL SIGNS: Blood pressure is 150/68, heart rate is 67 and regular. He is afebrile, 5 feet 11 inches tall, 180 pounds. His weight in June was 165 pounds. HEENT: There are neither xanthelasma, subcutaneous xanthomata, oral mucosal, digital cyanosis, or kyphoscoliosis present. [facility] [address] [place] [address] CONSULTATION Name: ROCKY TEJEDA Room #: 359-P [facility] IN ..#: [id number] Admission: 09/25/18 ������������������ Attend Phys: Israel Catherine MD Discharge: ������������������ Date of : 44 Report #: [id number] CHEST: Reveals diminished breath sounds at both bases. CARDIOVASCULAR: Regular rate and rhythm with normal S1, S2. Jugular venous pressure is elevated. ABDOMEN: Soft and nontender. EXTREMITIES: Right upper extremity is swollen. The peripheral extremities reveal 1+ pedal edema. NEUROLOGIC: He is alert, blind with a nonfocal exam. LABORATORY DATA: Sodium 129 and creatinine 1.7. Troponin 0. ProBNP of 2967. White count 5.9, hemoglobin 7.2, and hematocrit 21. TSH 3.9. Chest x-ray demonstrates cardiomegaly with vascular congestion. EKG remains pending. IMPRESSION: 1. Diastolic heart failure with recent normal ejection fraction. 2. Renal failure, remote cadaveric renal transplant. 3. Coronary artery disease with remote stenting, clinically stable. 4. History of complete heart block with prior [facility] pacer. 5. Diabetes. 6. Severe anemia. 7. Right arm swelling, currently under evaluation. 8. Dyslipidemia. 9. Immunocompromised. RECOMMENDATIONS: 1. Renal consultation. 2. Interrogate pacemaker. 3. Echocardiogram. I do not suspect the interval development of severe or significant left ventricular dysfunction. Thank you for asking me to participate in the patient's care. ��������������������������������������������� <ELECTRONICALLY SIGNED> ���������������������������������������� By: Kavon Koch MD, FACC ��������������������������������������������� 09/30/18 0833 1538 [id number] Kavon Koch MD, FACC /nt
[2018-09-30 11:24] VITALS: BP 153/97
--- NOTE | 2018-09-30 12:06 | NUR ---
ASSESSMENT: CM REVIEWED CHART AND MET WITH PATIENT AT THE BEDSIDE. PT WAS ADMITTED WITH CHF/UTI. PT IS A LTC RESIDENT AT [facility]. PT AND HIS HAVE RECENTLY MOVED INTO [facility] AND HAVE BEEN THERE ABOUT 3 WEEKS. PT REPORTS HE USES A WHEELCHAIR AT THE FACILITY. CM SPOKE WITH PATIENTS SON/DPDOREEN VELOZ AND CONFIRMED INFORMATION. CM ALSO FAXED UPDATED CLINIAL TO [facility] AND SPOKE WITH JOHN IN ADMISSIONS. PLANS ARE FOR PATIENT TO RETURN TO [facility] ONCE MEDICALLY STABLE. CM WILL CONTINUE TO FOLLOW TO ASSIST NEEDED.
--- NOTE | 2018-09-30 12:13 | NUR ---
WOUND CARE CONSULT; A WOUND TO THE POSTERIOR LEFT HEEL. THE WOUND HAS NO ODOR. 5% OF THE WOUND HAS ESCHAR LIKE TISSUE. IM NOT CONVINCED THAT IT IS ESCHAR. 95% IS VIABLE CLEAN, PINK TISSUE. NO C/O PAIN. RECOMMENDATION; MARLON LENTZ M/W/F PRN RN PRESENT.
[2018-09-30 16:34] VITALS: BP 166/78
[2018-09-30 19:20] VITALS: BP 161/72
--- NOTE | 2018-09-30 20:44 | NUR ---
PATIENT ALERT AND ORIENTED TO SELF AND PLACE WITH SOME CONFUSION AND BLIND AND [place] IN [place]. PATIENT NEEDS ASSISTANCE WITH FEEDING AND TUBE FEED IN CONSUMES LESS THAN 50% OF MEAL. PATIENT REFUSED LUNCH AND TUBE FEED INDICATING IT MAKES HIM BLOATED AND ACID RELUX AND HAVE A BOWEL MOVEMENT. PATIENT FINALLY DID EAT SOME LUNCH BUT REFUSED TUBE FEEDS. PER MD, PATIENT TO RECIEVED Q4 WATER FLUSHES. POSSIBLE DISCHARGE TO [facility].
[2018-10-01 00:05] VITALS: BP 145/60
--- NOTE | 2018-10-01 03:47 | NUR ---
pt has slept well tonight. he calls for assist with cares. he is aware of needing to be changed. careplan reviewed, progressing slowly toward discharge goals.
[2018-10-01 04:40] VITALS: BP 151/74
[2018-10-01 05:20] LABS: ALBUMIN 2.1 g/dL (3.4-5.0); CALCIUM 8.6 mg/dL (8.5-10.1); CREATININE 3.1 mg/dL (0.7-1.3); PHOSPHORUS 4.4 mg/dL (2.5-4.9); POTASSIUM 4.1 mmol/L (3.5-5.1)
[2018-10-01 07:20] VITALS: BP 154/67
--- NOTE | 2018-10-01 10:22 | NUR ---
Nutrition: Pt frequent refusal of bolus regimen due to GI symptoms. PO intake is inadequate and needs TF supplementation. REC change to nocturnal regimen for better tolerance and consistent delivery of nutrients. REC Nepro at 60 mL/hr x 10 hrs overnight. Meets ~50% of needs. RD starting calorie count and will followup with further recs.
[2018-10-01 11:31] VITALS: BP 163/61
--- NOTE | 2018-10-01 11:36 | NUR ---
Assumed care of pt at 0700. Pt is alert and orientated to person, place, and date. Pt unable to state why he is in the hospital. Pt remains on 3L NC, which is his baseline. SR with BBB and 1-deg AV block. Pt has 150mL Q4H water flushes and tube feed if meal tray is <50% consumed. Pt has had several cups to drink this morning, but minimal food eaten from tray. Wound care provided using therahoney. Q2H turns provided for comfort and pressure relief. Pt is slowly progressing toward POC goals. Will continue to monitor and assess.
--- NOTE | 2018-10-01 12:52 | NUR ---
ON-GOING ASSESSMENT: CM REVIEWED CHART. PT IS SLOWLY PROGRESSING TOWARDS DISCHARG GOALS. PT IS TO HAVE VIDEOSWALLOW. PT STILL ON IV FLUIDS. CM FAXED UPDATED CLINICAL TO [facility]. CM WILL CONTINUE TO FOLLOW TO ASSIST NEEDED.
[2018-10-01 15:31] VITALS: BP 155/54
[2018-10-01 19:28] VITALS: BP 159/61
[2018-10-02 03:36] VITALS: BP 148/56
--- NOTE | 2018-10-02 05:01 | NUR ---
PT HAS BEEN TURNED/REPOSITIONED, GIVEN A CARTON OF NEPHRO DUE TO BARELY ATE SUPPER, TOOK MEDS ORALLY WITH NO DIFFICULTY, HOB KEPT ELEVATED WITH TUBE FEEDING GIVEN, NO COUGH NOTED, BOTH HEELS ON OFFLOADER BOOTS, ON SOFT TOUCH CALL LIGHT BUTTON, TEXaS CATH PATENT, PERICARE PROVIDED, ON 3 L PER NC, NO ATTEMPT TO PULL LINES, ORAL CARE DONE, BED ALARM ON, MONITORED.
[2018-10-02 06:12] LABS: ALBUMIN 1.9 g/dL (3.4-5.0); CALCIUM 8.4 mg/dL (8.5-10.1); CREATININE 2.7 mg/dL (0.7-1.3)
[2018-10-02 07:20] VITALS: BP 158/61
--- NOTE | 2018-10-02 11:15 | NUR ---
Nutrition: Day one calorie count shows pt consumed 11-13% of needs via po intake at one meal. Refused 2 other meals and took Nepro bolus via PEG. Approx. 50% of needs met via po and TF bolus. REC add nocturnal regimen of Nepro at 60 mL/hr x 10 hrs in addition to bolus to meet ~100% of needs.
[2018-10-02 16:27] VITALS: BP 171/79
--- NOTE | 2018-10-02 18:24 | NUR ---
assumed care of pt at 0700, pt is alert and oriented times 1-2. pt has been refusing TF but nurse able to talk him into accepting his breakfast. pt refused any other TF and flushes.
[2018-10-02 19:25] VITALS: BP 189/86
[2018-10-02 21:00] VITALS: BP 158/72
[2018-10-03] VITALS (35 sets, daily range): BP systolic 76–194; BP diastolic 36–92
--- NOTE | 2018-10-03 05:35 | NUR ---
CONTINUE TO MONITOR ORAL NUTRIONAL INTAKE, GIVEN NEPHRO 1 BOX LAST NOC DUE TO PER DAY RN PT DID NOT EAT GOOD FOR SUPPER AND PT WAS REQUESTING IT, G TUBE WAS FLUSHED ORDERED, HOB KEPT ABOVE 30 DEGREES, USING URINAL WITH OCCASIONAL ACCIDENTS, NO BM PASSED, KEPT ON OXYGEN 3 L, NEW IV TO RIGHT AC, CONTINUE IVF ORDERED, AWAITING LABS THIS MORNING, TURNED/REPOSITIONED EVERY 2 HRS, BOOTS TO BOTH HEELS, SCDS TO BLE, PERICARE PROVIDED, G TUBE PATENT, MONITORED.
[2018-10-03 06:16] LABS: CALCIUM 9.2 mg/dL (8.5-10.1); CREATININE 2.2 mg/dL (0.7-1.3)
[2018-10-03 06:32] LABS: POTASSIUM 5.5 mmol/L (3.5-5.1)
--- NOTE | 2018-10-03 06:47 | NUR ---
POTASSIUM 5.5, CALLED TO DR DODSON, DR WALL HERE AND ORDERED TO D/C POTASSIUM FROM THE IVF, JUST NS AT 80
--- NOTE | 2018-10-03 09:44 | NUR ---
Nutrition: Pt frequently refuses nepro bolus during the day in addition to multiple meal refusals. Spoke with Dr Catherine and obtained verbal order to start continuous tube feeds of Nepro to start at 30 mL/hr and advance slowly to goal rate of 50 mL/hr. RD will monitor.
--- NOTE | 2018-10-03 12:37 | NUR ---
Assumed care of pt at 0700. At morning assessment pt was A&O to person and place with stable VS. Pt was verbalizing desire to take gown off but was able to redirect. At approx. 1040 returned to room to prepare tubefeed and medication for pt and found pt asleep. Upon attempting to wake pt, found pt non-responsive. Checked VS and they were stable but breathing was more shallow than normal. Had the charge nurse come and assess pt. Discussed with charge nurse and d/t the pt's deterioriation from baseline decided to call a rapid response. Progression from here can be found in the rapid response notes.
--- NOTE | 2018-10-03 12:42 | NUR ---
Pt brought to room 236-ICU post cardiac arrest from the floor at 1217. Pt is unresponsive to pain. Left pupil is non-reactive. Right pupil obsured with white film. Pt is intubated and on the vent (100%/TV 500 AC 20 PEEP 5cm) Pt incontinent of loose brown stool. Saline lock right AC.
[2018-10-03 12:50] LABS: BE(vivo) 0 mmol/L (-2 to +3); HCO3 25.4 mmol/L (22.0-26.0); PCO2 44.8 mmHg (35.0-45.0); PO2 301.7 mmHg (80.0-100.0); pH 7.371 (7.360-7.450); sO2 99.7 % (92.0-98.0)
--- NOTE | 2018-10-03 12:52 | NUR ---
ON-GOING ASSESSMENT: PT IS HYPERKALEMIC TODAY. A CODE BLUE WAS CALLED ON PATIENT TODAY AND HE HAD TO BE INTUBATED. PATIENT MOVED DOWN TO ICU. CM NOTIFIED CM IN ICU. PLANS ARE TO RETURN TO [facility] ONCE MEDICALLY STABLE.
--- NOTE | 2018-10-03 13:18 | NUR ---
EMBEDDED SYSTEMS ENGINEER CALLED AT 1120 THIS AM. PT NONRESPONSIVE, HYPOTENSIVE. ORDERS RECEIVED FROM DR DODSON TO TREAT HYPOTENSION HOWEVER PT THEN CODED. REGAINED PULSE, TRANSFERRED TO ICU. SEE EMBEDDED SYSTEMS ENGINEER INTERVENTION AND CODE FLOWSHEET FOR DETAILS.
--- NOTE | 2018-10-03 13:42 | NUR ---
PATIENT TRANSFERRED TO ICU AFTER CODE BLUE. WILL AWAIT NEW OT ORDERS WHEN PATIENT IS MEDICALLY APPROPRIATE.
--- NOTE | 2018-10-03 14:00 | NUR ---
VASCULAR ACCESS TEAM ORDER FOR IJ PLACEMENT POST CODE CONSENT SIGNED BY FOR [facility]. R IJ TL JACC CATHETER PLACED WITH U.S GUIDANCE PER HOSPITAL P&P. ONE NEEDLE STICK NEEDED FOR CANNULATION. GUIDEWIRE ADVANCED EASILY. SKIN NICKED AND DILATOR INSERTED. GUIDEWIRE REMOVED INTACT. 25CM LINE PLACED WITH 3CM EXTERNAL. CXR SHOWED LINE IN THE R ATRIUM. LINE RETRACTED BACK TO 7CM EXTERNAL AND STERILE DRESSING APPLIED. LINE RELEASED FOR IMMEDIATE USE TO RN.
--- NOTE | 2018-10-03 14:10 | NUR ---
Wrist restraint to left arm to prevent accidental removal of ET tube.
[2018-10-03 14:17] LABS: HEMATOCRIT 25.9 % (42.0-52.0); HEMOGLOBIN 8.3 gm/dL (14.0-18.0); MCH 29.6 pg (26.0-34.0); MCHC 32.2 g/dL (28.0-37.0); MCV 91.9 fL (80.0-100.0); RBC 2.81 mil/uL (4.50-6.00); RDW 16.6 % (10.5-14.5); WBC 10.1 thou/uL (4.0-11.0)
[2018-10-03 14:34] LABS: CALCIUM 10.1 mg/dL (8.5-10.1); CREATININE 2.4 mg/dL (0.7-1.3); POTASSIUM 4.7 mmol/L (3.5-5.1); TROPONIN-I 0.1 ng/mL (<0.06)
--- NOTE | 2018-10-03 14:46 | 2DMMODE ---
[address] [address] 2 D/M-MODE ECHOCARDIOGRAM Name: ROCKY TEJEDA Room #: 236-P ADM IN M.R.#: [id number] ������������� Admission: 09/25/18 ������������� Attend Phys: Israel Catherine MD Discharge: ��� ������������� ��� Date of : 44 Date of Service: 10/03/18 1446 �� Report #: [id number] �������� ��������������������������������������������[id number] THIS REPORT FOR: //name// APPROVED REPORT Study performed: 10/03/2018 13:22:36 EXAM: Limited 2D Echocardiogram Patient Location: ICU Room #: [facility] Status: routine BSA: 2.11 HR: 78 bpm BP: 136/62 mmHg Rhythm: Pacemaker Other Information Study Quality: Adequate Indications Status post Code Blue. Limited echo to rule out pericardial effusion. Hx: Pacemaker Left Ventricle The left ventricle is normal size. There is normal left ventricular wall thickness. Left ventricular systolic function is normal. Aortic Valve The aortic valve is normal in structure. Mitral Valve The mitral valve is normal in structure. Tricuspid Valve The tricuspid valve is normal in structure. Great Vessels IVC is dilated and collapses <50% with inspiration. Pericardium Small pericardial effusion noted. Left and right pleural effusions noted. <Conclusion> The left ventricle is normal size. [address] [address] 2 D/M-MODE ECHOCARDIOGRAM Name: ROCKY TEJEDA Room #: 236-P ADM IN M.R.#: [id number] ������������� Admission: 09/25/18 ������������� Attend Phys: Israel Catherine MD Discharge: ��� ������������� ��� Date of : 44 Date of Service: 10/03/181445 �� Report #: [id number] �������� ��������������������������������������������[id number] There is normal left ventricular wall thickness. Left ventricular systolic function is normal. The aortic valve is normal in structure. The mitral valve is normal in structure. Small pericardial effusion noted. Left and right pleural effusions noted. ��������������������������������������������� <ELECTRONICALLY SIGNED> ���������������������������������������� By: Magdi Pinto MD ��������������������������������������������� 10/03/186 45 45 Magdi Pinto MD /INF
--- NOTE | 2018-10-03 20:04 | NUR ---
PATIENT ASSESSMENTS AND VITAL SIGNS DOCUMENTED. NURSE ASSUMED CARE OF PATIENT SHORTLY AFTER 1400 TODAY. NURSE TOOK PATIENT TO CAT SCAN THEN TO [facility] FOR PERFUSION STUDY. HE THEN WAS RETURNED TO ICU ROOM 236. THIS TIME SPANNED APPROXIMATELY FROM [phone]. THEN HE WENT TO [facility] AT APPROXIMATELY 1645 UNTIL APPROX 1745. HE RETURNED AND WAS PLACED BACK ON PREVIOUS MONITORING DOCUMENTED. IV FLUIDS INITIATED, PROPOFOL WAS INITIATED, THEN LEVOPHED WAS INITIATED, ALL PER RENAL AND DR. HERRERA. LABS NOTED, PHYSICIANS WERE ABLE TO UPDATE AND ANSWER FAMILY QUESTIONS. REPORT GIVEN TO LONG TERM CARE ADMINISTRATOR RN FOR CONTINUATION OF CARE. PLAN OF CARE IS TO CONTINUE TO MONITOR VITAL SIGNS Q15 MINUTES, ASSESSMENTS Q2-4 HOURS, TITRATE MEDICATIONS PER MD ORDER, MONITOR INTAKE AND OUTPUT QSHIFT, AND MONITOR FOR PATIENT COMFORT NEEDED.
--- NOTE | 2018-10-03 22:28 | NUR ---
Late entry notes for 10/03/18: Pt transferred to ICU post cardiac arrest: 1225- Call to Dr Catherine's office to notify of code & need for orders 1238- Fingerstick glucose 148 1250- IV nurse here for placement of central line 1245- Dr Catherine here at bedside 1300- Update to Dr Allison and orders received 1323- Spoke with Dr Cai on the telephone-he is aware of consult and will see patient. 1323- Stat portable chest film post line placement & post intubation 1325- Pt's son is here. lift team technician here for bedside echo 1340- Page to Dr Kat for orders.New consult was called by coworker Eros MAY 1343- Pt beginning to move his head and his left arm 1408- Pulmonary nurse practitioner here Call received from Dr Allison for status report 1420- Restraint to left hand to prevent removal of ET tube 1425- Dr Garcia here for ID consult 1430- Dr Kat here and spoke with pt's son. Pt waking more and able to follow simple request from Dr Kat to wiggle toes and move left hand. Nodded response to Dr KAT. Decision for NO hypothermia protocol by Dr KAT. 1435- Preparation to transport to radiology for STAT CT of head and Lung perfusion Scan. Kishan Shi RN assisting with care and will travel with patient to radiology.
[2018-10-04] VITALS (31 sets, daily range): BP systolic 122–203; BP diastolic 42–94
[2018-10-04 05:43] LABS: MCH 30.1 pg (26.0-34.0); MCHC 33.4 g/dL (28.0-37.0); MCV 90.3 fL (80.0-100.0); RBC 2.66 mil/uL (4.50-6.00); RDW 16.6 % (10.5-14.5)
[2018-10-04 05:47] LABS: BE(vivo) -1.4 mmol/L (-2 to +3); HCO3 22.1 mmol/L (22.0-26.0); PCO2 32.1 mmHg (35.0-45.0); pH 7.455 (7.360-7.450); sO2 95.7 % (92.0-98.0)
[2018-10-04 06:07] LABS: ALBUMIN 1.9 g/dL (3.4-5.0); CALCIUM 8.9 mg/dL (8.5-10.1); CREATININE 2.8 mg/dL (0.7-1.3); PHOSPHORUS 3.9 mg/dL (2.5-4.9); POTASSIUM 4.7 mmol/L (3.5-5.1)
--- NOTE | 2018-10-04 07:23 | EKG ---
[place] [address] [facility] [place] [address] ELECTROCARDIOGRAM REPORT Name: ROCKY TEJEDA Room #: 236-P ADM IN M.R.#: [id number] ������������������ Admission: 09/25/18 ������������������ Attend Phys: Israel Catherine MD Discharge: ������������������ Date of : 42 Report #: [id number] ����������������������������������������������������������������� [id number] THIS REPORT FOR: //name// [facility] Test Date: 2018-10-03 Test Time: 11:29:01 Pat Name: ROCKY TEJEDA Department: Room: 236 Gender: M Cotton Program Technician: Alexa PALACIOS : 1940 Requested By: Israel Catherine Order Number: [id number] MD: Kaovn Koch Measurements Intervals [place] Rate: 60 P: LA: 209 QRS: -66 QRSD: 144 T: 50 QT: 448 QTc: 448 Interpretive Statements Atrial-paced complexes Right bundle branch block Inferior infarct, old Compared to ECG 09/26/2018 08:12:42 Atrial pacing now present inferior Q waves more prominent Electronically Signed On 10-04-2018 7:22:57 CDT by Kavon Koch [email or web address] ��������������������������������������������� <ELECTRONICALLY SIGNED> ���������������������������������������� By: Kavon Koch MD, [facility] ��������������������������������������������� 10/04/18 0722 [id number] [id number] Kavon Koch MD, [facility] /EPI
--- NOTE | 2018-10-04 07:33 | EKG ---
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: SWAPNIL : 1940 Requested By: Kavon Koch Order Number: [id number] MD: Kavon Koch Measurements Intervals [place] Rate: 75 P: 62 MN: 239 QRS: -85 QRSD: 136 T: 53 QT: 411 QTc: 460 Interpretive Statements Sinus rhythm Prolonged MN interval RBBB and LAFB Compared to ECG 09/26/2018 08:12:42 Inferior Q waves are no longer present Electronically Signed On 10-04-2018 7:33:24 CDT by Kavon Koch [email or web address] ��������������������������������������������� <ELECTRONICALLY SIGNED> ���������������������������������������� By: Kavon Koch MD, [facility] ��������������������������������������������� 10/04/18 0733 1 1 Kavon Koch MD, [facility] /EPI
--- NOTE | 2018-10-04 07:45 | NUR ---
SEDATED ON VENT. FOLLOW SIMPLE COMMANDS. NO APPARENT PAIN. OFF LEVOPHED AT 2200. TOLERATING VENT SETTINGS. LOW URINE OUTPUT, DR. WALL INFORMED. WOUND CARE PERFORMED. UPDATED FAMIL ABOUT CARE.
--- NOTE | 2018-10-04 08:52 | NUR ---
PT PLACE ON HOLD FROM P.T. DUE TO DECLINE IN MEDICAL STATUS AND TRANSFER TO ICU. PLEASE RE-ORDER P.T. ONCE PT IS ABLE TO PARTICIPATE IN THERAPEUTIC ACTIVITIES.
--- NOTE | 2018-10-04 09:29 | HC ---
[facility] [place] [address] CONSULTATION Name: ROCKY TEJEDA Room #: 236-P [facility] IN M.R.#: [id number] Admission: 09/25/18 ������������������ Attend Phys: Israel Catherine MD Discharge: ������������������ Date of : 42 Report #: [id number] THIS REPORT FOR: //name// CC: FAM unknown Israel Catherine DATE OF SERVICE: 10/03/2018 INFECTIOUS DISEASE CONSULTATION ATTENDING PHYSICIAN: Dr. Catherine. REASON FOR CONSULTATION: Cardiorespiratory arrest. Possible aspiration. Antibiotic management. HISTORY OF PRESENT ILLNESS: A 78-year-old -Turkish man suffered cardiorespiratory arrest, he is successfully resuscitated. He is transferred to the intensive care unit where he is intubated through oral cavity. All information on this patient is gathered from the review of records. ALLERGIES: PENICILLIN. MEDICATIONS: The patient is currently on treatment with cefepime 1 gram IV every 12 hours. He has received vancomycin 1750 mg IV single dose. He remains on clonidine 0.1 mg transcutaneously weekly, acetaminophen 650 q.i.d. p.r.n. per feeding tube, mycophenolate mofetil 250 p.o. b.i.d., tacrolimus 2 mg p.o. b.i.d., insulin lispro per sliding scale, p.r.n. glucose, glucagon, atorvastatin 10 mg daily, lisinopril 10 mg daily, omeprazole 20 mg per feeding tube daily, prednisone 5 mg daily, calcium carbonate 500 mg p.o. b.i.d., docusate 100 mg p.o. b.i.d., gabapentin 100 mg at bedtime, metoprolol tartrate 50 mg p.o. b.i.d., Atrovent and albuterol inhalation treatment, magnesium oxide supplementation, KCl supplementation per protocol. PAST MEDICAL HISTORY: 1. End-stage renal disease, status post renal transplantation, [facility] in 2001. 2. Diabetes mellitus. 3. Hypertension. 4. AV fistula, left arm. 5. Left diabetic foot ulcer. 6. Myocardial infarction. Previous cardiac catheterization. 7. Legally blind. 8. Percutaneous gastrostomy. 9. Permanent pacemaker in 03/2018 for complete heart block. 10. Left cerebellar lesion, question hemangioma. 11. Possible dementia in view of significant brain atrophy. [facility] [address] [place] [address] CONSULTATION Name: ROCKY TEJEDA Room #: 236-P [facility] IN .R.#: [id number] Admission: 09/25/18 ������������������ Attend Phys: Israel Catherine MD Discharge: ������������������ Date of : 42 Report #: [id number] PHYSICAL EXAMINATION: GENERAL: Elderly -Turkish man in the intensive care unit. He is thrashing around in bed. He is intubated through oral cavity. VITAL SIGNS: Presenting temperature 36.8, pulse 76, respirations 20, BP 136/62, O2 saturation is 98% on 3 liters nasal cannula earlier this morning. No further entries done since cardiorespiratory resuscitation. We will see if there is some laboratory data. 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 Mouth unable to examine because of orotracheal intubation. HEART: S1, S2. No gallop. LUNGS: Rhonchi, crackles bilaterally. ABDOMEN: Gastrostomy tube in place, soft, no masses or megaly. GENITAL AND RECTAL: Deferred. EXTREMITIES: Dressing on left foot not removed, pretibial edema bilaterally. AV fistula, left arm. LABORATORY DATA: CT head pending. Chest x-ray revealed orotracheal intubation, right IJ central venous catheter extending to the right atrium. No focal pulmonary infiltrate, small bilateral pleural effusion. Sodium 135, potassium 5.5, CO2 of 26, BUN 61, creatinine 2.2, glucose 149, phosphorus 5. Alkaline phosphatase on 09/25/2018 was 169, SGPT 09/25 was 72 U/L, albumin 2 g/dL today. CBC today revealed a WBC 10,100; hemoglobin 8.3 g/dL; platelets 192,000. No differential. ABGs revealed pH 7.37, pCO2 44, pO2 301, bicarbonate 25.4, lactate 1.57. O2 saturation 98% on FiO2 of 100%, respiratory rate 20, tidal volume 500 and 5 of PEEP. ASSESSMENT: 1. Possible aspiration pneumonia. 2. Status post cardiopulmonary resuscitation. 3. Renal transplant, immunosuppressed host and recent hemodialysis. 4. Anemia of chronic disease. 5. Hypoalbuminemia. 6. Cerebral atrophy and evidence of left cerebellar lesion, question hemangioma. 7. PENICILLIN ALLERGY. SUGGESTIONS: Recommend continue coverage with vancomycin, loading dose already given. We will request pharmacy manage his vancomycin. Continue cefepime 1 gram IV every 12 hours. Obtain ESR, CRP and procalcitonin. Further recommendation pending culture results. Change prednisone to Solu-Medrol intravenously. [facility] [address] [place] [address] CONSULTATION Name: ROCKY TEJEDA Room #: 299-P ADM IN M.R.#: [id number] Admission: 09/25/18 ������������������ Attend Phys: Israel Catherine MD Discharge: ������������������ Date of : 42 Report #: [id number] Catherine, thank you for requesting my suggestions. ��������������������������������������������� <ELECTRONICALLY SIGNED> ���������������������������������������� By: Maximiliano Garcia MD ��������������������������������������������� 10/04/18 0929 1433 1600 Maximiliano Garcia MD /nt
--- NOTE | 2018-10-04 10:04 | NUR ---
Nutrition: If appropriate, REC start enteral feeds of Vital HP to reach goal rate of 70 ML/hr to best meet needs in ICU with sedation. If Nepro is desired, REC 40 mL/hr although this will not meet protein needs. Follow plan of care.
[2018-10-04 12:06] LABS: BE(vivo) -1.5 mmol/L (-2 to +3); HCO3 23.9 mmol/L (22.0-26.0); PCO2 43.3 mmHg (35.0-45.0); PO2 73.2 mmHg (80.0-100.0); sO2 94.2 % (92.0-98.0)
--- NOTE | 2018-10-04 14:41 | NUR ---
FAXED CLINICAL UPDATE TO [facility] LEMONS SPOKE WITH JOHN IN ADM SHE RECEIVED UPDATE AND THAT PT WILL BE HERE OVER WEEKEND. DCP TO FOLLOW.
--- NOTE | 2018-10-04 16:43 | HC ---
[facility] [place] [address] CONSULTATION Name: ROCKY TEJEDA Room #: 236-P ADM IN .R.#: [id number] Admission: 09/25/18 ������������������ Attend Phys: Israel Catherine MD Discharge: ������������������ Date of : 42 Report #: [id number] THIS REPORT FOR: //name// CC: FAM unknown Israel Catherine PULMONARY CONSULTATION REFERRAL PHYSICIAN: Israel Catherine M.D. REASON FOR REFERRAL: Status post cardiac arrest. HISTORY OF PRESENT ILLNESS: The patient is a 78-year-old -Tunisian male who was admitted on 09/25/2018 for progressive weakness and lethargy. He has multiple complex medical problems. Earlier today, the patient had a cardiac arrest. A Pulmonary consultation was requested. As mentioned, the patient has complex medical problems. In 2001, he underwent kidney transplantation at [facility]. He has been on immunosuppressants ever since then. He has been on prednisone and Prograf. There were concerns that the patient perhaps may be developing long-term side effects from these immunosuppressants. According to the son, who seems to be a reliable historian, he states that the patient was normally well until about 3 months ago, when he started to decline. In particular, his main problem appeared to be weakness and lethargy. In March of this year, he was hospitalized at [facility] for syncopal episode. He was found to have complete heart block. A dual-chamber pacemaker was placed. In June of this year, he was again hospitalized for progressive weakness. He was also complaining of chest pain. During this hospitalization, the patient developed altered mental status. A CT head showed presumed "mass" in the cerebellum area. Because of this concern, he was transferred to [facility] for further evaluation. Workup at the [facility] suggested that the cerebellar mass may in fact be hemangioma. Of note, recent CT head performed earlier today shows decrease in the size of the cerebellar mass. The son was told that he had a CANT GANG SAWYER bleed in this area when at [facility]. From [facility], he was then sent to [facility] for ongoing rehabilitation therapy. He was then readmitted on 09/25/2018 for progressive fatigue. Review of the record since admission showed the patient remained lethargic. He was felt to be volume overloaded and has been undergoing diuresis. Of note, he underwent hemodialysis while at [facility], which helped. His urine output improved. With his renal transplantation, he has a baseline creatinine of around 1.5 to 2.0. He does have urine output. On this admission, he also complaining of right arm pain. Ultrasound showed [facility] [address] [place] [address] CONSULTATION Name: ROCKY TEJEDA Khur[place] Room #: 236-P [facility] IN M.R.#: [id number] Admission: 09/25/18 ������������������ Attend Phys: Israel Catherine MD Discharge: ������������������ Date of : 42 Report #: [id number] thrombosis involving the right cephalic vein. Early this morning, the patient was found to be hypotensive. According to the nursing, his systolic was around 60. The patient was given clonidine patch earlier on the day. When the nurse returned back to the room, the patient was found to be apneic, pulseless. Code blue was called. When the code team arrived, the patient was felt to be in PEA. He was given epinephrine with return of the pulse. The patient was intubated and was transferred to the ICU. In the ICU, the patient was arousable. He does follow commands, squeezing my hands on command. He does wiggle his toes on commands. Hypothermia protocol was not initiated. His chest x-ray post-intubation revealed previously noted gyxs-qm-hagjhbii bilateral pleural effusion, which appears to be loculated. ET tube is approximately 2.5 cm above the alcides. PAST MEDICAL HISTORY: As mentioned above. Status post renal transplantation in 2001 at [facility], had been on immunosuppressants including prednisone and Prograf since then. Diabetes mellitus type 2, hypertension, dyslipidemia, coronary artery disease with past history of myocardial infarction, status post stent placement in the past. He is legally blind, status post permanent pacemaker placement due to complete heart block. ALLERGIES: None to medications. MEDICATIONS: Current medication list was reviewed including the home medication list. This includes Lopressor, tacrolimus 4 mg p.o. b.i.d., Zestril, CellCept 500 mg p.o. b.i.d., aspirin, Colace, Prilosec, Crestor, Calcitriol, Humalog insulin supplements, Levemir, Coreg, Norvasc, vitamin C, Lasix, prednisone 5 mg once a day, DuoNebs q.i.d., Neurontin and Tums. FAMILY HISTORY: Notable for diabetes and hypertension. SOCIAL HISTORY: The patient is a lifetime nonsmoker. Denies any alcohol use. He is and lives with his , though he has children who live in town. REVIEW OF SYSTEMS: Deferred as the patient is intubated. PHYSICAL EXAMINATION: GENERAL: On exam, he is arousable, following commands. VITAL SIGNS: Temperature is 98 degrees Fahrenheit, pulse is 70, respiratory rate is 20, blood pressure 136/62 mmHg and saturation is 95%. HEENT: Normocephalic, atraumatic. He is orally intubated. [facility] [address] [place] [address] CONSULTATION Name: ROCKY TEJEDA Room #: 236-P ADM IN M.R.#: [id number] Admission: 09/25/18 ������������������ Attend Phys: Israel Catherine MD Discharge: ������������������ Date of : 42 Report #: [id number] NECK: Supple, without any lymphadenopathy or thyromegaly. CHEST: Breath sounds are coarse bilaterally. CARDIOVASCULAR: Normal S1, S2. No murmurs or gallops. There is no JVD. There are no carotid bruits. Pulses are 2+/4+ bilaterally. ABDOMEN: Soft, nontender. No organomegaly or masses felt. GENITOURINARY: Deferred. RECTAL: Deferred. EXTREMITIES: There is no edema, cyanosis or clubbing. NEUROLOGICAL EXAMINATION: As mentioned above, the patient is arousable, following commands, squeezing my hands on both sides along with wiggling toes on command. LABORATORY DATA: Portable chest x-ray, as mentioned above, showing msew-hx-tbnuhpbn bilateral pleural effusion, ET tube is in appropriate position. EEG showed abnormal EEG. V/Q scan shows high probability including pleural base wedge defect involving the posterior segment of the right lower lobe, intermediate probability for pulmonary embolus. Procalcitonin level 0.29. CT head performed earlier today shows a decrease in the size of the left cerebellar mass of undetermined etiology, chronic changes are noted. Echocardiogram showed normal LV function, otherwise grossly unremarkable. C-reactive protein is 75. Electrolytes: Sodium 137, potassium 4.7, chloride 100, CO2 of 27, BUN is 63 and creatinine is 2.2; on admission, it was 1.7. WBC 10,000, hemoglobin 8.3 and platelets are normal. Troponin 0.1. Arterial blood gas post-intubation revealed pH of 7.37, pCO2 of 44 and pO2 of 300 on FiO2 at 100%. IMPRESSION: 1. Cardiac arrest in this 78-year-old -Tunisian male with multiple medical problems. Earlier, he was found to be hypotensive, then became unresponsive and pulseless. Initial rhythm was felt to be PEA. Return of the rhythm following CPR for 2 minutes and then epinephrine. Currently, he is in normal sinus rhythm. Etiology is likely related to profound hypotension. Cause of the hypotension is unclear, but we will need to consider pulmonary embolus, volume depletion and antihypertensive medications. 2. Neurologic status. At this time, the patient is following commands and no need for hypothermia protocol. 3. Acute hypercapnic hypoxic respiratory failure due to above. 4. Kcbi-cf-ntkyyhpg bilateral pleural effusion, chronic since admission. Some of the pleural effusion appears to be loculated and will need to be addressed when the patient is stable. 5. Intermediate perfusion scan. Ventilation scan was not performed as the patient is intubated. With his history of right cephalic vein thrombosis, this is considered to be ysmqlpbo-db-wrdj likelihood that he has pulmonary embolus. However, anticoagulation is a concern in this patient with recent GI bleed and questionable CANT GANG SAWYER bleed. 6. Recent lower gastrointestinal bleed. He was observed to have bright red blood per rectum. This occurred in [facility]. According to the [facility] [address] [facility] [address] CONSULTATION Name: ROCKY TEJEDA Room #: 236-P [facility] IN [facility].#: [id number] Admission: 09/25/18 ������������������ Attend Phys: Israel Catherine MD Discharge: ������������������ Date of : 42 Report #: [id number] son, he underwent endoscopic evaluation, showing rectal ulcer. He then underwent surgical resection. This was around 07/2018. 7. Cerebellar mass, questionable central nervous system bleed. According to the CT head, the cerebellar mass in the left appears to have decreased in size. The workup at [facility] suggested hemangioma. The son was told that he may have had a CANT GANG SAWYER bleed at [facility]. Based on these findings, we will have to defer any anticoagulation at this point until evaluated by Neuro and Neurosurgery. 8. Right cephalic vein thrombosis. Agree that this does not need to be treated. However, in this setting, anticoagulation will be helpful, though not tolerated by the patient. For now, we would recommend monitoring right upper extremity with serial ultrasounds. Leg Doppler ultrasound of the lower extremities has been ordered. 9. Status post renal transplantation in 2001. He has been on chronic immunosuppressants, including prednisone and Prograf. His baseline creatinine was around 1.5 to 2.0. He apparently experienced acute kidney injury, requiring hemodialysis while at [facility]. On this admission, the patient has had urine output. Renal is following. 10. Progressive lethargy and weakness over the past 3 months, according to the son. There is concern that this patient may be experiencing long-term immunosuppression therapy. 11. Coronary artery disease with past history of myocardial infarction. RECOMMENDATIONS: We will continue mechanical ventilation, wean O2 if FiO2 is 90%. In regards to the pleural effusion, once stable, we will proceed with CT chest to further evaluate pleural effusion. It appears to be loculated. Effusion not as big and I do not think he needs further surgical intervention. In terms of intermediate probability scan, given the clinical history, one would assume that this likely represents pulmonary embolus. However, anticoagulation is at this time contraindicated because of recent GI bleed, which has been surgically corrected. However, there is a question of CANT GANG SAWYER bleed. In regards to the cerebellar mass, it appeared to have improved. Evaluation at the [facility] suggested this may be hemangioma. It will be beneficial for Neurology and neurosurgical input as to whether we now can proceed with anticoagulation if okay from that perspective given the GI bleeding issues have been addressed. I had a long and detailed discussion with the son. Following discussion, he voices understanding. We will review records from [facility] when available. [facility] [place] [address] CONSULTATION Name: ROCKY TEJEDA Room #: 236-P ADM IN [facility]#: [id number] Admission: 09/25/18 ������������������ Attend Phys: Israel Catherine MD Discharge: ������������������ Date of : 42 Report #: [id number] CRITICAL CARE: One and a half hours. ��������������������������������������������� <ELECTRONICALLY SIGNED> ���������������������������������������� By: Bhargav Kat MD ��������������������������������������������� 10/04/18 1643 [id number] Bhargav Kat MD /nt
--- NOTE | 2018-10-04 16:48 | NUR ---
PT REMAINS ON THE VENT CPAP TRIAL DONE TODAY. DOES FOLLOW SOME COMMANDS WITH OPENING HIS EYES. LUNGS ARE CLEAR TO DIMINISHED. VARGAS TO DD WITH YELLOW URINE PRESENT. OG WILL SEND DOWN FOR OCCULT. 2 PLUS GENERAL EDEMA NOTED. REMAINS CALM TURN Q 2 HOURS . MINIMAL SECREATIONS SUCTIONED. AND ORAL CARE DONE. SCDS ON BILATERAL. BLOOD PRESSURE IS MODERATE TO HIGH GOT A PRN HYDRALAZINE ORDER. WILL CONTINUE TO MONITOR AND ASSESS. RESTRAINTS REMAIN ON DUE TO PULLING AT HIS LINES AND DEVICS.
[2018-10-05] VITALS (7 sets, daily range): BP systolic 145–176; BP diastolic 57–76
[2018-10-05 05:51] LABS: BASOPHILS 0.4 % (0.0-2.0); HEMOGLOBIN 8.2 gm/dL (14.0-18.0); LYMPHOCYTES 8.7 % (24.0-44.0); MCH 29.8 pg (26.0-34.0); MCV 90.3 fL (80.0-100.0); MONOCYTES 4.1 % (1.0-8.0); PLATELET COUNT 197 thou/uL (150-400); POLYS 86.8 % (36.0-66.0); RBC 2.77 mil/uL (4.50-6.00); RDW 16.9 % (10.5-14.5); WBC 8.1 thou/uL (4.0-11.0)
--- NOTE | 2018-10-05 06:00 | NUR ---
REMAINS INTUBATED PROPOFOL FOR SEDATION. WILL OPEN EYES VERY SLIGHTLY AND CAKE WRINGER VERY WEAKLY TO COMMAND. 800 CC UO THIS SHIFT. BATHED. REPSOITIONED REMAINS IN SINUS RHYTHM. WILL CONT TO MONITOR.
[2018-10-05 06:02] LABS: CREATININE 2.8 mg/dL (0.7-1.3); POTASSIUM 4.4 mmol/L (3.5-5.1)
[2018-10-05 06:17] LABS: ALBUMIN 1.9 g/dL (3.4-5.0); CALCIUM 9.1 mg/dL (8.5-10.1); PHOSPHORUS 4.6 mg/dL (2.5-4.9)
[2018-10-05 11:22] LABS: BE(vivo) 1.2 mmol/L (-2 to +3); PO2 92.7 mmHg (80.0-100.0); pH 7.409 (7.360-7.450); sO2 97.1 % (92.0-98.0)
--- NOTE | 2018-10-05 16:18 | NUR ---
REMAINS ON THE VENT CPAP TRIAL DONE TODAY WITH RESULTS CALLED TO DR. BLOCK. PT WILL OPEN HIS EYES BUT SQEZZING YOUR HAND IS WEAK. FAMILY AT BEDSIDE FOR SUPPORT. TODAY. LUNGS ARE COARSE TO DIMINISHED. VARGAS CATH TO DD WITH CLEAR YELLOW URINE PRESENT. REMAINS ON LIGHT SEDATION WITH PROPOFOL. TURN Q 2 HOURS AND REPOSITION FOR COMFORT. ABDOMEN IS SOFT BOWEL SOUNDS HYPOACTIVE. NO CONCERNS OR ISSUES AT THIS TIME
[2018-10-06] VITALS (24 sets, daily range): BP systolic 123–164; BP diastolic 52–78
[2018-10-06 05:28] LABS: HEMATOCRIT 26.1 % (42.0-52.0); HEMOGLOBIN 8.9 gm/dL (14.0-18.0); MCH 30.4 pg (26.0-34.0); MCV 89.5 fL (80.0-100.0); RBC 2.92 mil/uL (4.50-6.00); RDW 17.4 % (10.5-14.5); WBC 9.5 thou/uL (4.0-11.0)
[2018-10-06 05:37] LABS: CALCIUM 9.3 mg/dL (8.5-10.1); CREATININE 2.3 mg/dL (0.7-1.3); PHOSPHORUS 4.3 mg/dL (2.5-4.9)
--- NOTE | 2018-10-06 06:00 | NUR ---
REMAINS INTUBATED AND LIGHTLY SEDATED WITH PROPOFOL GTT. LUNGS COARSE BILAT SINUS RHYTHM. MORE ALERT TONIGHT. OPENS EYES TO NAME AND SIMULATION ENGINEER TO COMMAND 4500 CC UO THIS SHIFT., BATHED. WILL CONT TO MONITOR.
[2018-10-06 15:40] LABS: BE(vivo) 3.3 mmol/L (-2 to +3); HCO3 28.3 mmol/L (22.0-26.0); PO2 90.3 mmHg (80.0-100.0); pH 7.417 (7.360-7.450)
--- NOTE | 2018-10-06 15:50 | NUR ---
PAGED DR. BLOCK WITH ABG RESULTS POST CPAP TRIAL. WILL PUT BACK ON PREVIOUS SETTINGS. AND TRYP CPAP TOMORROW. SEEMS TIRED AND WEAK. FOLLOWS COMMANDS. LUNGS ARE COARSE. FAMILY AT BEDSIDE FOR SUPPORT. ABDOMEN IS SOFT AND BOWEL SOUNDS HYPOACTIVE. RESTRAINTS ON BILATERAL. SCDS ON BILATERAL. REMAINS ON VENT. AFIB ON THE HEATER MECHANIC. WILL CONTINUE TO ASSESS AND MONITOR PER NURSING AT THIS TIME
[2018-10-07] VITALS (22 sets, daily range): BP systolic 106–154; BP diastolic 43–69
--- NOTE | 2018-10-07 | NUR ---
ALL SUCTION AND OG TUBINGS AND CANNISTERS CHANGED. ORAL CARE GIVEN.
[2018-10-07 05:34] LABS: HEMATOCRIT 23.4 % (42.0-52.0); HEMOGLOBIN 7.8 gm/dL (14.0-18.0); MCH 30.1 pg (26.0-34.0); MCHC 33.5 g/dL (28.0-37.0); MCV 89.9 fL (80.0-100.0); RBC 2.61 mil/uL (4.50-6.00); RDW 16.7 % (10.5-14.5); WBC 7.2 thou/uL (4.0-11.0)
[2018-10-07 05:50] LABS: ALBUMIN 1.8 g/dL (3.4-5.0); CALCIUM 9.1 mg/dL (8.5-10.1); CREATININE 1.9 mg/dL (0.7-1.3); PHOSPHORUS 3.6 mg/dL (2.5-4.9); POTASSIUM 3.5 mmol/L (3.5-5.1)
--- NOTE | 2018-10-07 06:00 | NUR ---
REMAINS INTUBATED AND LIGHTLY SEDATED WITH PROPOFOL. RING SORTER WEAKLY TO COMMAND. 800 CC UO THIS SHIFT. SINUIS RHYTHM. LUNGS SLIGHTLY COARSE BILAT. AFEBRILE. BATHED. REPOSITIONED. WILL CONT TO MONITOR CLOSELY.
--- NOTE | 2018-10-07 06:50 | NUR ---
PROPOFOL GTT TURNED OFF PT PLACXED ON CPAP. WILL CONT TO MONITOR.
--- NOTE | 2018-10-07 07:35 | NUR ---
Pt on CPAP trial. Propofol on hold. No apparent distress. Pt will follow commands. See assesment.
[2018-10-07 08:22] LABS: BE(vivo) 5.2 mmol/L (-2 to +3); HCO3 30.2 mmol/L (22.0-26.0); PCO2 46.7 mmHg (35.0-45.0); PO2 101.6 mmHg (80.0-100.0); pH 7.429 (7.360-7.450); sO2 97.7 % (92.0-98.0)
--- NOTE | 2018-10-07 09:07 | NUR ---
If remains off propofol, recommend nepro at 50ml/hr, otherwise 40ml/hr if propofol restarted.
--- NOTE | 2018-10-07 13:15 | NUR ---
Dr Kat reviewed ABG's and pt clinically and pt was placed back on previous ventilator settings. Tube feedings Nepro started at 20 ml/hr via PEG tube. OG clamped. Propofol was resumed at 1100 at 20 mcg/kg/min.
--- NOTE | 2018-10-07 15:03 | NUR ---
REMAINS ON VENT. CPA TRIALING BUT NEURO STATUS MAKES PT NOT READY TO EXTUBATE. NEURO EVAL TODAY AND WILL HOLD OFF ON ANTICOAGULATION R/T HX OF IHC. DR. BRISCOE'S NOTE INDICATES HE SPOKE WITH PT'S SON TODAY IN DETAIL ABOUT PLAN OF CARE. PT IS FROM [facility] AND WILL CONITNUE TO KEEP FACILITY ADMISSIONS UPDATED.
--- NOTE | 2018-10-07 19:00 | NUR ---
Pt resting quietly. Lightly sedated with Propofol. Report given to RN assuming care.
[2018-10-08] VITALS (23 sets, daily range): BP systolic 95–167; BP diastolic 37–56
[2018-10-08 04:52] LABS: ALBUMIN 1.9 g/dL (3.4-5.0); CALCIUM 8.7 mg/dL (8.5-10.1); CREATININE 1.9 mg/dL (0.7-1.3); PHOSPHORUS 3.8 mg/dL (2.5-4.9); POTASSIUM 3.8 mmol/L (3.5-5.1)
--- NOTE | 2018-10-08 07:30 | NUR ---
PT INTUBATED AND ON VENT; LIGHTLY SEDATED WITH PROPOFOL. PT DROWSY AND WEAK; FOLLOWS FEW SIMPLE COMMANDS. TUBE FEEDINGS INITIATED; TOLERATING WELL WITH LOW RESIDUALS. NO OVERNIGHT EVENTS. WILL CONTINUE TO MONITOR.
[2018-10-08 10:39] LABS: BE(vivo) 3.4 mmol/L (-2 to +3); HCO3 28.2 mmol/L (22.0-26.0); PCO2 44.5 mmHg (35.0-45.0); PO2 97.1 mmHg (80.0-100.0); sO2 97.5 % (92.0-98.0)
--- NOTE | 2018-10-08 19:40 | NUR ---
SHIFT SUMMARY: NOT PROGRESSING THIS SHIFT. SEE ASSESSMENT FOR DETAILS. PROPOFOL OFF AT 0800, THEN AT 0900 CPAP TRIAL FOR 1 HR. ABG'S POST TRIAL GIVEN TO PULMONARY NURSE PRACTITIONER. PAGED DR. BLOCK IN AFTERNOON TO FOLLOW UP ON PLAN OF CARE POST CPAP. DR. BRISCOE NOTED PT NOT PROGRESSING WELL TODAY YESTERDAY- LESS RESPONSIVE. PT PLACED ON ASSIST CONTROL. PT DID MOVE ALL EXTREMITIES TO COMMAND AND PULLING FIRMLY WITH L ARM TOWARD ETT. SEE ASSESSMENTS FOR DETAILS. REPORT TO MONET ENGRAVER JEWELRY.
[2018-10-09] VITALS (24 sets, daily range): BP systolic 121–183; BP diastolic 40–73
[2018-10-09 06:11] LABS: ALBUMIN 1.8 g/dL (3.4-5.0); CALCIUM 8.1 mg/dL (8.5-10.1); CREATININE 1.7 mg/dL (0.7-1.3); PHOSPHORUS 3.4 mg/dL (2.5-4.9); POTASSIUM 3.5 mmol/L (3.5-5.1)
--- NOTE | 2018-10-09 06:41 | NUR ---
No significant changes observed through the night. VS stable and SpO2 adequate on current vent settings. PRN fentanyl given frequently for breakthrough restlessness and pt's grimacing and nodding "yes" to having pain and being uncomfortable with desired effect achieved. Propofol gtt going at low dose for vent management. Tolerating TF with minimal residuals and large amount of urine output for shift. Am lab results noted, continue with POC.
--- NOTE | 2018-10-09 12:07 | NUR ---
PT ON CPAP SINCE @ 0900 THIS AM. WELL TOLERATED. RR- 21, SPONTANEOUS [id number], END TIDAL [id number]. SEE DOCUMENTED WEANING PARAMETERS. BLOOD CLOT IN ONE ARM AND AV FISTULA IN OTHER, SO ABG NOT OBTAINED PER DR. BLOCK'S ORDER. (PREVIOUS ABGS ASSOCIATED WITH CPAP ACCEPTABLE.) OK TO EXTUBATE PER DR. BLOCK, HOWEVER RETURN TO PREVIOUS VENT SETTINGS TILL EXTUBATION. SON NOTIFIED OF PLANNED EXTUBATION AND WANTED TO BE PRESENT TO SPEAK WITH PT REGARDING CLARIFICATION OF ADVANCE DIRECTIVES. ROSELIA TEJEDA- SON NOTIFIED AND PLANS TO BE PRESENT AT 1500. PLAN FOR EXTUBATION AT 1400.
--- NOTE | 2018-10-09 14:35 | NUR ---
EXTUBATED BY RT WALE, THEN PLACE ON FACE SHIELD AT FI02-35%. WELL TOLERATED. RESTING COMFORTABLY.
--- NOTE | 2018-10-09 15:07 | NUR ---
SON PRESENT TO SPEAK WITH HIS FATHER.
--- NOTE | 2018-10-09 16:24 | NUR ---
EXTUBATED TODAY. SON HERE TO VISIT. PT FROM LTC AT [facility] WITH PLAN FOR RETURN WHEN MEDICALLY STABLE. SON AT BEDSIDE TODAY.
[2018-10-10] VITALS (23 sets, daily range): BP systolic 120–182; BP diastolic 38–90
[2018-10-10 06:29] LABS: CALCIUM 8.7 mg/dL (8.5-10.1); CREATININE 1.5 mg/dL (0.7-1.3); PHOSPHORUS 3.1 mg/dL (2.5-4.9); POTASSIUM 3.7 mmol/L (3.5-5.1)
--- NOTE | 2018-10-10 06:29 | NUR ---
Pt awake and restless most of the night. PRN fentanyl given frequently with desired effect achieved. VS stable and SpO2 adequate on 2L of O2. Tolerating TF with minimal residuals and no BM observed. Urine output adequate for the shift. Am lab results pending, continue with POC.
--- NOTE | 2018-10-10 09:36 | NUR ---
FAXED CLINICAL UPDATE TO [facility] NOTIFIED JOHN IN ADM THAT UPDATE FAXED. DCP TO FOLLOW.
[2018-10-11] VITALS: BP 174/51
--- NOTE | 2018-10-11 00:32 | NUR ---
REPORT GIVEN TO SRIDHAR MAY. PT IN STABLE ON TRANSFER. AOX1, CONFUSED. VSS. AFEBRILE. DENIES PAIN. TF FEEDING ONGOING. VARGAS IN PLACE. NO COMPLAINS PRESENTLY. WILL INFORM FAMILY ABOUT TRANSFER IN AM.
[2018-10-11 01:07] VITALS: BP 146/73
[2018-10-11 04:45] VITALS: BP 147/46
[2018-10-11 07:16] LABS: ALBUMIN 1.9 g/dL (3.4-5.0); CALCIUM 8.7 mg/dL (8.5-10.1); CREATININE 1.5 mg/dL (0.7-1.3); PHOSPHORUS 2.7 mg/dL (2.5-4.9); POTASSIUM 3.1 mmol/L (3.5-5.1)
[2018-10-11 07:56] VITALS: BP 172/50
--- NOTE | 2018-10-11 09:23 | NUR ---
VASCULAR ACCESS NURSE ROUNDING. CENTRAL LINE APPROPRIATE AT THIS TIME. THIS PATIENT HAS UPPER ARM DVTS AND A LARGE AMOUNT OF BILATERAL UPPER EXTREMITY EDEMA. HE CONTINUES ON IV ANTIBIOTICS AT THIS TIME
[2018-10-11 14:44] VITALS: BP 176/68
--- NOTE | 2018-10-11 14:46 | NUR ---
No weekend dc anticipated, however should the pt be medically cleared for dc back to [facility] please call their oncall liason at [phone] or [phone] to coordinate. The pt will need [facility] transport arranged. PCS form is on the chart. Jason is checking the pt's skilled medicare days for continued therapy. A chart copy will need to be sent with the pt and his son Daquan notified.
[2018-10-11] MEDS ORDERED: NORVASC10 MG PER TUBE (16:31)
[2018-10-11] MEDS ORDERED: PREDNISONE 10 M10 MG PO (16:36)
[2018-10-11] MEDS ORDERED: PROTONIX40 M1 PER TUBE (16:37)
[2018-10-11] MEDS ORDERED: DEPAKOTE SPRIN125 MG PER TUBE (16:37)
[2018-10-11 17:35] LABS: URINE BILIRUBIN NEGATIVE (Negative); URINE BLOOD 3+ (Negative); URINE CLARITY CLEAR; URINE COLOR YELLOW; URINE GLUCOSE-RANDOM* 2+ (Negative); URINE KETONES NEGATIVE (Negative); URINE NITRITE-REFLEX NEGATIVE (Negative); URINE PROTEIN (DIPSTICK) 2+ (Negative); URINE UROBILINOGEN 0.2 E.U./dl (0.2-1.0)
[2018-10-11 17:41] LABS: URINE LEUKOCYTES-REFLEX 1+ (Negative)
[2018-10-11 17:49] LABS: YEAST-REFLEX Present (None Seen)
[2018-10-11 17:50] LABS: CASTS None Seen /LPF (None Seen); SQUAMOUS 0-3 Few /LPF (0-3); URINE RBC 3-10 Few /HPF (0-2)
[2018-10-11 17:51] LABS: CRYSTALS None Seen /LPF (None Seen)
--- NOTE | 2018-10-11 18:01 | NUR ---
ASSESSMENT CHARTED - MEDS PER MAY - MEDS CRUSHED AND GIVEN TO PATIENT VIA PEG TUBE. NEPRO RATE INCREASED TODAY TO GOAL RATE OF 50CC AN HOUR - PER FIELD MECHANIC/SITE LEAD. PT HAS MARVIN WELL WITH RESIDUAL OF 2 CC AND NONE THIS EVEINING. PT INCONT OF STOOL THIS AM AND THEN REQUESTED BEDPAN THIS AFTERNOON. PT WITH STOOL X 2 LIQUIDY. ATTMEPTED TO PERFORM ORAL CARE - PATIENT CLAMPED MOUTH SHUT AND TOLD ME TO STOP - TURNED PATIENT HE REMOVED WEDGES AMD THREW THEM ON THE FLOOR. PT CALLING FOR ROSELIA HIS SON AND THAT WE WERE TAKING HIS IDENTITY AND INFORMATION - PATIENT REASSURED THIS WAS NOT HAPPENING - APPEARS TO BE RESTING COMFPRATABLY AT THE PRESENT TIME - PLAN FOR PATIENT TO RETRUN TO [facility] IN THE AM.
[2018-10-11 20:00] VITALS: BP 164/49
--- NOTE | 2018-10-12 04:18 | NUR ---
RECEIVED PT'S CARE AT 1926; PT. ON BED; SLEEPING; DURING ASSESSMENT PT. ALERT TO PERSON; ST. WANTS TO REST; "I HAVE NOT REST DURING THE LAST THREE DAYS"; EDUCATED ABOUT THE NEED TO GIVE MEDICATION; ST. UNDERSTANDING; MEDICATION GIVEN; INSULIN GIVEN AT MIDNIGHT; AT 0100 FEEDING CHANGED; TURNED Q2H; ABLE TO REST THROUGH THE NIGHT; ASSESSMENT CHARGED; FOLLOWING POC; MONITORING; WILL PASS ON REPORT.
[2018-10-12 04:45] VITALS: BP 173/59
[2018-10-12 05:57] LABS: ALBUMIN 1.5 g/dL (3.4-5.0); CALCIUM 8.6 mg/dL (8.5-10.1); CREATININE 1.5 mg/dL (0.7-1.3); PHOSPHORUS 2.5 mg/dL (2.5-4.9)
[2018-10-12 05:59] LABS: POTASSIUM 2.8 mmol/L (3.5-5.1)
[2018-10-12 07:53] VITALS: BP 152/47
[2018-10-12 11:48] VITALS: BP 140/40
--- NOTE | 2018-10-12 14:35 | HC ---
[facility] [place] [address] CONSULTATION Name: ROCKY TEJEDA Room #: 214-P ADM IN M.R.#: [id number] Admission: 09/25/18 ������������������ Attend Phys: Israel Catherine MD Discharge: ������������������ Date of : 42 Report #: [id number] THIS REPORT FOR: //name// CC: FAM unknown Israel Catherine DATE OF SERVICE: 10/03/2018 HISTORY OF PRESENT ILLNESS: This is a 78-year-old male patient who was evaluated by me for cardiac arrest. As I understand from the nurses, the patient had asystole and respiratory arrest. I reviewed the notes in the computer. The patient is intubated at the moment and he is also getting some propofol. The patient is waking up to some extent. REVIEW OF SYSTEMS: The patient is unable to provide any review of system. I talked to the patient's son and reviewed the record. He has kidney problem. He apparently had a transplant done. Review of systems is positive for multiple problems. He has renal problems. As I understand, this patient is being followed by Cardiology also. He was in [facility] for 2 months. I do not have any record from [facility]. The son tell me that they did do an MRI because of his pacemaker was compatible with MRI. They ultimately thought it may be hemorrhage, but I do not have any records to confirm that. He does have a pacemaker. He was having multiple issues as I understand, especially with vital signs. He has a history of anemia. This was his relevant 14-point review of systems. PAST MEDICAL HISTORY: Positive for renal problem. FAMILY HISTORY: Unremarkable. SOCIAL HISTORY: He has a son who is the one who provided history. PHYSICAL EXAMINATION: Limited. He wakes up slightly. When he wakes up, he tries to squeeze my finger. I cannot tell if he does it on both sides because he does it infrequently. He did not move anything else persistently, is not possible to do rest of the neurological examinations on him. I reviewed his EEG and I reviewed his CT and his vital signs are better with a blood pressure of 147/71 now. LABORATORY DATA: His hemoglobin is 8.3. His potassium is normal now. His lung scan shows intermediate possibility for probability of pulmonary embolism. IMPRESSION: Most likely this patient's episode occurred because of systemic problems including cardiac and pulmonary. It is unlikely it was a primary neurological event. In the absence of workup, I cannot be certain it is not a stroke or anything, but appears less likely. Even if it is a stroke, not much [facility] [address] [place] [address] CONSULTATION Name: ROCKY TEJEDA Room #: 214-P [facility] IN ..#: [id number] Admission: 09/25/18 ������������������ Attend Phys: Israel Catherine MD Discharge: ������������������ Date of : 42 Report #: [id number] can be done in this patient with history of possible bleed into the cerebellar area. I discussed all this aspect with the son. I discussed with him that we can be wrong either way. I discussed his options in that regard. Workup is difficult because of his kidney problems and pacemaker. He understood all that. He wanted conservative care and continue to manage systemic cause for his problem. Thank you very much for this referral and we will follow this patient along with you. ��������������������������������������������� <ELECTRONICALLY SIGNED> ���������������������������������������� By: Johnie Jernigan MD ��������������������������������������������� 10/12/18 1435 1708 [id number] Johnie Jernigan MD /nt
--- NOTE | 2018-10-12 14:36 | EEG ---
[facility] [place] [address] ELECTROENCEPHALOGRAM Name: ROCKY TEJEDA Room #: 214-P ADM IN M.R.#: [id number] ������������������ Admission: 09/25/18 ������������������ Attend Phys: Israel Catherine MD Discharge: ������������������ Date of : 42 Report #: [id number] ����������������������������������������������������������������� [id number] THIS REPORT FOR: //name// CC: FAM unknown Israel Catherine DATE OF SERVICE: 10/03/2018 This patient had respiratory arrest and also a cardiac arrest. EEG was done by placing the electrodes by standard 10-20 system of electrode placement. Both referential and sequential montages were used for recording. Background activity in this patient's EEG is about 6-7 Hz and 30 microvolt. It is slow on both sides. Photic stimulation is unremarkable. It is not possible to tell when the patient is awake and when the patient is asleep. No active epileptiform activity was noticed. IMPRESSION: This is an abnormal EEG because it is disorganized and poorly formed. That is a nonspecific abnormality, which can occur with encephalopathy, effect of psychotropic medication, dementia, etc. Clinical correlation is recommended. ���������������������������������������� <ELECTRONICALLY SIGNED> ���������������������������������������� By: Johnie Jernigan MD ��������������������������������������������� 10/12/18 1436 [id number] [id number] Johnie Jernigan MD /nt
--- NOTE | 2018-10-12 17:37 | NUR ---
ASSESSMENT CHARTED - MEDS PER MAY - NO CO'S OF PAIN OR NAUSEA. MARVIN TUBE FEEDING WITH RESIDUAL NOTED. PT ALLOWEWD MOUTH TO BE CLEANED X 1 WITH MUCH COAXING FROM SONE ALLOWED TURNING X 1. DRESSING TO L HEEL CHANGED - PICTURE ON CHART PATIENT TO BE D/C'D THIS EVENING. PRAFO BOOTS REMAIN INSITU. REPORT CALLED TO [facility]. MONITOR AND RIJ AND VARGAS REMOVED PRIOR TO D/C. PT TO TRANSFER VIA AMBULANCE.
[2018-10-12 19:36] VITALS: BP 154/59
== END 2018-10-12 20:24 | DRG 252 ==
LOC: ER 12:01 → ICU 14:34 → 3W 14:34 → EROBS 14:34 → 3W 16:24 → ICU 10-03 12:18 → 2N 10-11 00:50
PROVIDERS: Hospitalist; Internal Medicine; Internal Medicine Nephrology; Internal Medicine Pulmonary Disease; Nurse Practitioner Family; Psychiatry & Neurology Neurology; ADMIT Internal Medicine
PROC: 0BH17EZ Insertion of Endotracheal Airway into Trachea, Via Natural or Artificial Opening (ICD-10-PCS; principal; 2018-10-03)
PROC: 06H03DZ Insertion of Intraluminal Device into Inferior Vena Cava, Percutaneous Approach (ICD-10-PCS; principal; 2018-10-03)
PROC: 5A12012 Performance of Cardiac Output, Single, Manual (ICD-10-PCS; principal; 2018-10-03)
PROC: 5A1955Z Respiratory Ventilation, Greater than 96 Consecutive Hours (ICD-10-PCS; principal; 2018-10-03)
DX: I13.0 Hypertensive heart and chronic kidney disease with heart failure and stage 1 through stage 4 chronic kidney disease, or unspecified chronic kidney disease (principal); I50.33 Acute on chronic diastolic (congestive) heart failure; J96.01 Acute respiratory failure with hypoxia; I61.9 Nontraumatic intracerebral hemorrhage, unspecified; I46.9 Cardiac arrest, cause unspecified; J18.9 Pneumonia, unspecified organism; J96.02 Acute respiratory failure with hypercapnia; N17.9 Acute kidney failure, unspecified; T86.19 Other complication of kidney transplant; E87.1 Hypo-osmolality and hyponatremia; L97.429 Non-pressure chronic ulcer of left heel and midfoot with unspecified severity; J91.8 Pleural effusion in other conditions classified elsewhere; G93.1 Anoxic brain damage, not elsewhere classified; I82.611 Acute embolism and thrombosis of superficial veins of right upper extremity; E46 Unspecified protein-calorie malnutrition; N39.0 Urinary tract infection, site not specified; I82.621 Acute embolism and thrombosis of deep veins of right upper extremity; Z94.0 Kidney transplant status; I42.9 Cardiomyopathy, unspecified; E11.22 Type 2 diabetes mellitus with diabetic chronic kidney disease; D64.9 Anemia, unspecified; E11.621 Type 2 diabetes mellitus with foot ulcer; R13.10 Dysphagia, unspecified; I25.10 Atherosclerotic heart disease of native coronary artery without angina pectoris; G93.89 Other specified disorders of brain; E11.40 Type 2 diabetes mellitus with diabetic neuropathy, unspecified; D63.1 Anemia in chronic kidney disease; N18.9 Chronic kidney disease, unspecified; H54.8 Legal blindness, as defined in USA; M62.84 Sarcopenia; E87.5 Hyperkalemia; Y83.8 Other surgical procedures as the cause of abnormal reaction of the patient, or of later complication, without mention of misadventure at the time of the procedure; E78.5 Hyperlipidemia, unspecified; Z88.0 Allergy status to penicillin; I25.2 Old myocardial infarction; Z95.818 Presence of other cardiac implants and grafts; Z68.24 Body mass index [BMI] 24.0-24.9, adult; Z95.0 Presence of cardiac pacemaker; Y92.89 Other specified places as the place of occurrence of the external cause; Z79.82 Long term (current) use of aspirin; Z79.4 Long term (current) use of insulin; Z79.899 Other long term (current) drug therapy; I95.9 Hypotension, unspecified
CPT/HCPCS: 10078; 10081; 10203; 10879

== ENCOUNTER 2018-10-18 16:15 | Inpatient (IN) | payer OTHER ==
[~2018-10-18] VITALS: Ht 172.7 cm; Wt 77.0 kg
[~2018-10-18 16:15] MED LIST changes: +CARVEDILOL12.5 MG PO; +DEPAKOTE SPRIN125 MG PER TUBE; +GABAPENTIN 100100 MG PO; +HUMALOG100 UNIT/1 SUBQ; +IPRAT-ALBUT 0.5-3 ML INH; +LASIX 40 MG TAB40 M2 PO; +NORVASC10 MG PER TUBE; +NORVASC5 MG PO; +PREDNISONE 10 M10 MG PO; +PROTONIX40 M1 PER TUBE; +TYLENOL325 MG PO; +VITAMINC500 PO
[2018-10-18 16:18] VITALS: BP 141/57
[2018-10-18 17:11] LABS: URINE BLOOD 3+ (Negative); URINE CLARITY CLOUDY; URINE COLOR YELLOW; URINE GLUCOSE-RANDOM* NEGATIVE (Negative); URINE KETONES NEGATIVE (Negative); URINE NITRITE-REFLEX NEGATIVE (Negative); URINE PROTEIN (DIPSTICK) 3+ (Negative); URINE UROBILINOGEN 0.2 E.U./dl (0.2-1.0)
[2018-10-18 17:12] LABS: ICTOTEST (BILI CONFIRMATORY) Negative (Negative); URINE BILIRUBIN NEGATIVE (Negative); URINE LEUKOCYTES-REFLEX 2+ (Negative)
[2018-10-18 17:19] LABS: CASTS None Seen /LPF (None Seen); SQUAMOUS None Seen /LPF (0-3); URINE WBC-REFLEX >25 Many /HPF (0-5)
[2018-10-18 17:20] LABS: AMORPHOUS URATES Many /LPF (None Seen); BACTERIA-REFLEX 1-9 Few /HPF (None Seen); URINE RBC 3-10 Few /HPF (0-2)
[2018-10-18 17:52] LABS: ABSOLUTE NEUTROPHILS 5.7 thou/uL (1.4-8.2); BASOPHILS 0.5 % (0.0-2.0); EOSINOPHILS 1.8 % (0.0-3.0); HEMATOCRIT 25.5 % (42.0-52.0); HEMOGLOBIN 8.3 gm/dL (14.0-18.0); LYMPHOCYTES 29.2 % (24.0-44.0); MCH 30.1 pg (26.0-34.0); MCHC 32.5 g/dL (28.0-37.0); MCV 92.6 fL (80.0-100.0); MONOCYTES 7.5 % (1.0-8.0); PLATELET COUNT 132 thou/uL (150-400); RBC 2.75 mil/uL (4.50-6.00); RDW 17.1 % (10.5-14.5); WBC 9.4 thou/uL (4.0-11.0)
[2018-10-18 17:59] LABS: CALCIUM 9.1 mg/dL (8.5-10.1); CREATININE 2.4 mg/dL (0.7-1.3); POTASSIUM 3.9 mmol/L (3.5-5.1)
[2018-10-18 18:09] LABS: ALBUMIN 1.7 g/dL (3.4-5.0); TOTAL BILIRUBIN 0.3 mg/dL (<0.1-1.0); TOTAL PROTEIN 5.7 g/dL (6.4-8.2); TROPONIN-I 0.16 ng/mL (<0.06)
--- NOTE | 2018-10-18 19:42 | NUR ---
NURSE NOT AVAILABLE FOR REPORT
[2018-10-18 19:58] VITALS: BP 125/54
[2018-10-18 23:39] VITALS: BP 126/46
[2018-10-19 03:44] VITALS: BP 128/54
[2018-10-19 05:25] LABS: INR 1.1; PROTIME 11.8 Seconds (9.3-11.4)
--- NOTE | 2018-10-19 05:28 | NUR ---
ASSUMED CARE OF PATIENT FROM ER. ALERT TO SELF, ANSWERS SOME QUESTIONS. DAUGHTER AT BEDSIDE BRIEFLY. ATTEMPTED TO HAVE ADMISSION PAPERWORK SIGNED, BUT SHE HAD TO LEAVE. PATIENT RESTING IN BED. IN TO SEE HIM. ORDERS OBTAINED. POC GOALS ESTABLISHED.
[2018-10-19 05:38] LABS: ABSOLUTE NEUTROPHILS 4.3 thou/uL (1.4-8.2); BASOPHILS 0.3 % (0.0-2.0); CALCIUM 8.2 mg/dL (8.5-10.1); CREATININE 2.6 mg/dL (0.7-1.3); EOSINOPHILS 2.6 % (0.0-3.0); HEMATOCRIT 24.4 % (42.0-52.0); LYMPHOCYTES 23.1 % (24.0-44.0); MCH 30.3 pg (26.0-34.0); MCHC 32.7 g/dL (28.0-37.0); MCV 92.6 fL (80.0-100.0); PLATELET COUNT 123 thou/uL (150-400); POTASSIUM 3.7 mmol/L (3.5-5.1); RBC 2.64 mil/uL (4.50-6.00); TROPONIN-I 0.14 ng/mL (<0.06); WBC 6.4 thou/uL (4.0-11.0)
[2018-10-19 07:58] VITALS: BP 141/61
[2018-10-19 11:47] VITALS: BP 140/83
[2018-10-19 16:35] VITALS: BP 128/58
[2018-10-19 19:45] VITALS: BP 128/71
--- NOTE | 2018-10-19 20:37 | H ---
[facility] [address] [place] [address] HISTORY AND PHYSICAL Name: ROCKY TEJEDA Room #: 358-P ADM IN M.R.#: [id number] Admission: 10/18/18 Attend Phys: Israel Catherine MD Discharge: Date of : 42 Report #: [id number] THIS REPORT FOR: //name// CC: [facility] Israel Catherine MD DATE OF SERVICE: 10/18/2018 CHIEF COMPLAINT: Altered mental status. HISTORY OF PRESENT ILLNESS: The patient is a 78-year-old male who currently resides at the [facility] across the street from the hospital. The patient was somewhat obtunded around 11:00 on the morning of admission. He is alert to person at baseline, but became unresponsive to all stimuli, according to the Emergency Room note today. The patient is deemed a fairly poor historian upon my exam this evening. The patient was known to have elevated temperature of 103 degrees earlier and is being admitted with a working diagnosis of pneumonia. PAST MEDICAL HISTORY: Quite extensive and includes end-stage renal disease with renal transplant for which he currently takes antirejection medications. He has been on dialysis in the past, but has been off of dialysis since at least the last month according to the documentation I have seen today. Other past medical history includes insulin-requiring diabetes mellitus, hypertension, LASIK eye surgery on the right side, AV fistula in the left arm, dyslipidemia, myocardial infarction with BMS to RCA x 2 on 06/14/2006 and that was preceded by BMS to LAD and diagonal on 06/11/2006. He is legally blind and has peripheral vision only. He has an implanted cardiac pacemaker since March 2018 for complete heart block. 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 He apparently has significant dysphagia and has a G-tube as of 08/07/2018. There is also a diagnosis of sarcopenia in the patient's record. His last hospitalization in addition to having a code blue arrest after becoming hypotensive on an IV Lasix drip revealed delirium at some point and psychiatry bridal stylist sales consultant saw him. He was placed on divalproex at that time. MEDICATIONS: Current medication regimen includes amlodipine, prednisone, divalproex, pantoprazole, Levemir, NovoLog, metoprolol, tacrolimus, Zestril, mycophenolate mofetil, aspirin, docusate, rosuvastatin, calcitriol, acetaminophen, ascorbic acid, furosemide, DuoNeb, gabapentin and calcium carbonate. ALLERGIES: HE HAS KNOWN ALLERGY TO PENICILLIN, but as a side note, it mentions that he tolerates cefepime and ceftriaxone again as of 10/04/2018. [address] [address] HISTORY AND PHYSICAL Name: ROCKY TEJEDA Khurram Room #: 358-P ADM IN M.R.#: [id number] Admission: 10/18/18 Attend Phys: Israel Catherine MD Discharge: Date of : 42 Report #: [id number] SOCIAL HISTORY: Nonsmoker, nondrinker, no recreational drugs, but I have no other information besides that, and the patient is not a good historian. FAMILY HISTORY: Again, the patient is not a good historian. PHYSICAL EXAMINATION: VITAL SIGNS: In the Emergency Room, the temperature was 39.9 degrees centigrade, significantly elevated; respirations 29 per minute, blood pressure 141/57, oxygen saturation of 96% on 2 liters per nasal cannula and heart rate was elevated at 112 beats per minute. The self-reported weight was 168.0 pounds. GENERAL: This is a pleasant, somewhat flat-affected older male, in no distress at the time of my exam. HEENT: The patient is clearly blind and does not track with his eyes. His oropharynx is dry and pink. No lesions, no exudates. Sinuses are nontender and hearing is grossly normal. NECK: Significant for IJ on the right side. Bruits were not heard. LUNGS: Coarse in both bases, especially on the left side. Her breath sounds are significantly diminished. CARDIOVASCULAR: Reveals a regular rhythm, bordering on tachycardia in the 90s. ABDOMEN: Soft. Bowel sounds are present, but diminished. No visceromegaly or masses noted. The patient has a percutaneous endoscopic gastrostomy tube in the epigastric area. EXTREMITIES: There is no cyanosis or clubbing or peripheral edema. The patient has a left heel pressure sore that is appropriately covered. All the pulses in both feet are diminished. They are palpable on both sides. Wrist pulses are also palpable. On the left, there is a thrill from the graft. MENTAL STATUS: The patient is alert and oriented to self. No overt hallucinations or delusions noted on exam today. LABORATORY DATA: Done in the Emergency Room, EKG had a sinus tachycardia of 101 beats per minute. The EKG showed a right bundle-branch block and left anterior fascicular block without evidence of pacing. The machine reading suggested ST-segment elevation, but I could not find any significant ST elevation when I reviewed the strip. We did obtain a subsequent EKG on arrival to the floor and the patient's EKG showed a rhythm that was sinus bordering on tachycardia with a borderline prolonged IL interval at 193 milliseconds and right bundle branch block and left anterior fascicular block. The right bundle branch block can be transient in some people and is mentioned for the sake of completeness. I did not see signs of ischemia. Chemistry shows sodium of 148 and elevated, potassium of 3.9, chloride of 109 and elevated; bicarbonate of 35 and elevated. The anion gap was only 4. BUN was 63 with a creatinine that was elevated at 2.4 (baseline was approximately 1.5 at last discharge). The estimated GFR was 32, glucose was 119, nonfasting. [facility] [address] [place] [address] HISTORY AND PHYSICAL Name: ROCKY TEJEDA Room #: 358-P [facility] IN [facility]#: [id number] Admission: 10/18/18 Attend Phys: Israel Catherine MD Discharge: Date of : 42 Report #: [id number] Lactic acid level was normal on a venous draw at 0.9, calcium level was 9.1, total bilirubin was normal at 0.3, AST of ALT of 90, both elevated overall and since his last admission. His alkaline phosphatase is 192 and is elevated since last admission and overall. Troponin 0.16 and this is elevated and elevated since last admission. NT-proBNP was done, it was 2201 (I am not sure of the significance of this test in light of kidney disease). Total protein was 5.7, albumin was 1.7, significant with severe malnutrition and the lipase was normal at 136. Hematology showed a white blood cell count of 9400 with hemoglobin depressed at 8.3 and hematocrit of 25.5. The red cell indices showed an MCV of 92.6, which was normal and an elevated RDW at 17.1 consistent with a reactive bone marrow. The platelet count was 132,000. Differential done in the Emergency Room shows segs of 61%, lymphs of 29.2%, monocytes of 7.5% and eosinophils of 1.8%, absolute neutrophil count was normal at 5700. Urinalysis showed 3+ proteins, specific gravity of 1.020 with a pH of 5.5. The microscopic showed 3-10 red blood cells per high power field, greater than 25 white blood cells per high power field, many amorphous urates, few bacteria and negative glucose. Blood cultures and urine cultures are pending. Chest x-ray shows cardiomegaly and left pleural effusion that, per the radiologist's report, is decreasing as compared to his last admission. The patient was given a liter of intravenous fluids in the Emergency Room because he was felt to be intravascularly dry. Additional IV fluids were not ordered down there because of the propensity for this patient to chronic diastolic congestive heart failure. The patient was given Maxipime, vancomycin and Levaquin for antibiotic coverage starting for this apparent healthcare-acquired infection. ASSESSMENT AND PLAN: 1. Altered mental status, possibly due to infectious encephalopathy. We will treat the underlying problems to see if we can help the mental status issues. 2. Aspiration plus or minus healthcare-acquired pneumonia. Continue oxygen supplementation, breathing treatments and start IV antibiotics. 3. Urinary tract infection. Continue the IV antibiotics ordered above and monitor culture results. 4. Elevated liver function tests after starting the patient recently on divalproex and also him being on acetaminophen and Crestor. I recommended reducing risk factors by discontinuing those medications that have significant known hepatic toxicity and reassessing labs on a frequent basis. 5. Elevated troponin and elevated NT-proBNP. I am not sure of the significance of these elevations, but given an underlying abnormal EKG, I will obtain serial troponin levels and treat accordingly. 6. Gastroesophageal reflux disease without evidence of esophagitis. 7. History of type 2 diabetes mellitus. We will continue on Serial Accu-Cheks. He has had a recent A1c, control is reasonable. 8. Hyperlipidemia. Holding HMG-CoA reductase inhibitor for the next week while [facility] [address] [place] [address] HISTORY AND PHYSICAL Name: ROCKY TEJEDA Room #: 358-P [facility] IN [facility]#: [id number] Admission: 10/18/18 Attend Phys: Israel Catherine MD Discharge: Date of : 42 Report #: [id number] assessing liver functions. 9. Dehydration. We will resume the patient's tube feedings and continue water flushes and add water boluses as needed to maintain adequate hydration in the face of 103 degrees fever. He is a full code blue status. <ELECTRONICALLY SIGNED> By: Colton Meza MD 10/19/18 2037 [id number] Colton Meza MD /nt
--- NOTE | 2018-10-19 20:41 | NUR ---
PATIENT ALERT TO SELF ONLY, FOLLOWS COMMANDS. SINUS RHYTHM WITH BBB ON COUNTER CONTROL OPERATOR. ON 2L NASAL CANNULA, PEG TUBE IN PLACE. TUBE FEEDING STARTED, PATIENT TOLERATING WELL. VARGAS PATENT AND DRAINING, WOUNDS TO LOWER EXTREMITIES. NO COMPLAINTS OF PAIN. BLOOD SUGAR MONITORED. FAMILY UPDATED ON THE PLAN OF CARE, NO SIGNS OF ACUTE DISTRESS NOTED AT THIS TIME. WILL CONTINUE TO MONITOR.
[2018-10-20 00:10] VITALS: BP 108/67
[2018-10-20 04:35] VITALS: BP 110/72
[2018-10-20 05:28] LABS: ALBUMIN 1.5 g/dL (3.4-5.0); CALCIUM 8.2 mg/dL (8.5-10.1); CREATININE 3.2 mg/dL (0.7-1.3); TOTAL BILIRUBIN 0.4 mg/dL (<0.1-1.0); TOTAL PROTEIN 5.5 g/dL (6.4-8.2); TROPONIN-I 0.11 ng/mL (<0.06)
[2018-10-20 05:41] LABS: ABSOLUTE NEUTROPHILS 3.6 thou/uL (1.4-8.2); BASOPHILS 0.2 % (0.0-2.0); EOSINOPHILS 3.5 % (0.0-3.0); HEMATOCRIT 23.8 % (42.0-52.0); HEMOGLOBIN 7.7 gm/dL (14.0-18.0); LYMPHOCYTES 22.7 % (24.0-44.0); MCHC 32.2 g/dL (28.0-37.0); MONOCYTES 8.7 % (1.0-8.0); PLATELET COUNT 128 thou/uL (150-400); POLYS 64.9 % (36.0-66.0); RBC 2.55 mil/uL (4.50-6.00); RDW 16.9 % (10.5-14.5); WBC 5.5 thou/uL (4.0-11.0)
--- NOTE | 2018-10-20 06:42 | NUR ---
SLEPT MOST OF NOC. INCONTINENT OF LOOSE/LIQUID STOOLS PAST LACTULOSE THIS SHIFT. TURNED FOR COMFORT AND SKIN CARE NEEDED. TEMP 98.3 THIS AM. WORKING ON GOALS AND PLAN OF CARE FOR NOC. NOT PROGRESSING TOWARDS DISCHARGE GOALS AT THIS TIME. MORE ALERT THIS AM.
[2018-10-20 08:06] VITALS: BP 107/61
[2018-10-20 08:22] LABS: BE(vivo) 3.5 mmol/L (-2 to +3); HCO3 29.2 mmol/L (22.0-26.0); PO2 64.8 mmHg (80.0-100.0); pH 7.385 (7.360-7.450); sO2 92.2 % (92.0-98.0)
[2018-10-20 11:38] VITALS: BP 121/57
--- NOTE | 2018-10-20 12:00 | HC ---
[facility] [place] [address] CONSULTATION Name: DARON DE LA O Room #: 358-P [facility] IN M.R.#: [id number] Admission: 10/18/18 Attend Phys: Israel Catherine MD Discharge: Date of : 42 Report #: [id number] THIS REPORT FOR: //name// CC: Israel Catherine DATE OF SERVICE: 10/19/2018 CONSULTATION: Infectious diseases. HISTORY OF PRESENT ILLNESS: Daron De La O is a 78-year-old gentleman admitted from his snf on 10/18/2018 to [facility] because of fever and depressed mental status. The patient was essentially unresponsive when he arrived in the hospital with temperature 39.8 axillary. Infectious Disease consultation was requested to assist with evaluation and management. The patient underwent a live donor renal transplant several years ago. This has resolved his end-stage renal disease. He is on ongoing immunosuppressive therapy to prevent rejection. The patient has history of diabetes with hypertension, hyperlipidemia, blindness, coronary artery disease with myocardial infarction, and coronary artery bypass grafting. He also has a pacemaker. The patient was recently diagnosed with some kind of mass in his brain, but because of his comorbidities, further workup has not been pursued and the plan is just to follow for now. ALLERGIES: THE PATIENT'S CHART NOTES ALLERGY TO PENICILLIN. FAMILY HISTORY: Noncontributory. SOCIAL HISTORY: The chart shows the patient is , but he lives at the snf. He has no history of tobacco nor alcohol. REVIEW OF SYSTEMS: The patient says he feels "pretty good now." He is not aware of fevers, chills, sweats. Denies any headache, sinus congestion, sore throat, trouble swallowing. His visual deficits are stable. The patient denies cough, chest pain, and shortness of breath. The patient denies nausea, vomiting, diarrhea, constipation. The patient denies pain in his extremities. PHYSICAL EXAMINATION: GENERAL: The patient appears debilitated but comfortable, not in any distress. He was sleeping when I came to the room, but aroused appropriately, was able to answer questions. [facility] [address] [place] [address] CONSULTATION Name: DARON DE LA O Room #: 358-P [facility] IN M.R.#: [id number] Admission: 10/18/18 Attend Phys: Israel Catherine MD Discharge: Date of : 42 Report #: [id number] ENT: Unremarkable except for the eye changes. There may be some early temporal wasting. NECK: Supple. MENTAL STATUS: Grossly normal. CARDIOVASCULAR: Heart sounds S1, S2. LUNGS: Clear to anterior auscultation bilaterally. ABDOMEN: Obese, soft, not tender. EXTREMITIES: Unremarkable. LABORATORY STUDIES: White count is 6.4, hemoglobin 8, and platelet 123,000. Electrolytes showed sodium 147, potassium was 2.8 on admission and now 3.7 with supplementation. Chloride 111, bicarb 31, BUN is 64, creatinine 2.6 from a baseline of 1.5. Liver function tests are elevated with SGOT 126, SGPT 90 and alkaline phosphatase of 192. The chest x-rays suggest possible infiltrates. ASSESSMENT AND PLAN: In summary, we have a gentleman who is somewhat debilitated, immunosuppressed that presents with fever and confusion. These have resolved, but he is now noted to be significantly anemic with rising creatinine and liver function tests. The patient is started on broad-spectrum antibiotic therapy for snf acquired pneumonia. With the PENICILLIN allergy, this has been based on cefepime with vancomycin and Levaquin. Cultures are incubating. I concur with broad-spectrum antibiotic therapy until the situation is more clear. With the rise in creatinine and renal transplant, I would like to change the vancomycin to linezolid as this is not nephrotoxic and the dose does not need to be adjusted for moderate renal function changes. We wanted to do followup chest x-ray and CBC as well as follow liver function tests. Number of home medications have been changed in case this might represent an adverse drug reaction. We will need to watch the CBC to see if the white count stays low, although this may be septic with the immunosuppression, and to make sure the hemoglobin does not slip any lower. Hopefully, over the next 24-48 hours, source of infection may become more clear. In the meantime, the patient appears fairly comfortable on broad-spectrum antibiotic therapy, which we will continue. I appreciate the opportunity to offer input in the care of this complex gentleman. I will be happy to follow him through the weekend until Dr. Teran returns on Sunday. [address] [address] CONSULTATION Name: NIKHILDARON L Room #: 358-P ADM IN .R.#: [id number] Admission: 10/18/18 Attend Phys: Israel Catherine MD Discharge: Date of : 42 Report #: [id number] Thank you for this referral. <ELECTRONICALLY SIGNED> By: Martín Corea MD 10/20/18 1200 0813 1154 Martín Corea MD /
--- NOTE | 2018-10-20 16:01 | NUR ---
ASSUMED CARE OF PT AT 0700. DROWSY BUT MORE AWAKE, ABLE TO SAY NAME AND ANSWER SIMPLE YES/NO QUESTIONS. RENAL CONSULTED. LASIX RESTARTED. FLUIDS ADJUSTED. AFEBRILE SO FAR THIS SHIFT. INSTRUCTED TO RESUME TF TO 30CC/HR AND ADVANCE PER ORDER. TURNED Q2H. PRAFO BOOTS ORDERED. SINUS ON TELEMETRY. VITALS STABLE. WILL CONT TO MONITOR. SLOW PROGRESS TOWARD POC GOALS.
[2018-10-20 16:36] VITALS: BP 127/56
--- NOTE | 2018-10-20 18:37 | EKG ---
[place] [address] [address] [facility] [place] [address] ELECTROCARDIOGRAM REPORT Name: ROCKY TEJEDA Room #: 358-P ADM IN M.R.#: [id number] Admission: 10/18/18 Attend Phys: Israel Catherine MD Discharge: Date of : 42 Report #: [id number] THIS REPORT FOR: //name// [facility] ED Test Date: 2018-10-18 Test Time: 17:10:37 Pat Name: ROCKY TEJEDA Department: Room: 358 Gender: M Skiver Box Toe: JOANN : 1940 Requested By: Mayelin Nunez Order Number: [id number] MD: Ashok Martin Measurements Intervals [place] Rate: 101 P: 72 [place]: 201 QRS: -90 QRSD: 127 T: 68 QT: 364 QTc: 472 Interpretive Statements Sinus tachycardia RBBB and LAFB Nonspecific ST-T wave changes Compared to ECG 10/04/2018 07:02:15 significant changes Electronically Signed On 10-20-2018 18:36:55 CDT by Ashok Martin [email or web address] <ELECTRONICALLY SIGNED> By: Ashok Martin MD 10/20/18 183 171 09 Ashok Martin MD /EPI
[2018-10-20 20:00] VITALS: BP 143/61
[2018-10-21 04:52] VITALS: BP 103/45
[2018-10-21 06:08] LABS: HEMATOCRIT 23.4 % (42.0-52.0); HEMOGLOBIN 7.5 gm/dL (14.0-18.0); MCH 29.7 pg (26.0-34.0); MCHC 32.2 g/dL (28.0-37.0); MCV 92.3 fL (80.0-100.0); RBC 2.54 mil/uL (4.50-6.00); RDW 16.5 % (10.5-14.5); WBC 4.7 thou/uL (4.0-11.0)
[2018-10-21 06:14] LABS: CALCIUM 8.4 mg/dL (8.5-10.1); CREATININE 3.3 mg/dL (0.7-1.3); POTASSIUM 3.7 mmol/L (3.5-5.1)
[2018-10-21 07:24] VITALS: BP 110/52
--- NOTE | 2018-10-21 08:39 | EKG ---
[place] [address] [address] [facility] [place] [address] ELECTROCARDIOGRAM REPORT Name: ROCKY TEJEDA Room #: 358- ADM IN M.R.#: [id number] Admission: 10/18/18 Attend Phys: Israel Catherine MD Discharge: Date of : 42 Report #: [id number] THIS REPORT FOR: //name// [facility] Test Date: 2018-10-18 Test Time: 23:17:51 Pat Name: ROCKY TEJEDA Department: Room: 358 P Gender: M Licensed Retail Supervisor: leo craft rn : 1940 Requested By: Colton Meza Order Number: [id number] MD: Kavon Koch Measurements Intervals [place] Rate: 93 P: 50 [place]: 193 QRS: -87 QRSD: 145 T: 58 QT: 387 QTc: 482 Interpretive Statements Sinus rhythm RBBB and LAFB Compared to ECG 10/04/2018 07:02:15 First degree AV block no longer present Electronically Signed On 10-21-2018 8:38:47 CDT by Kavon Koch [email or web address] <ELECTRONICALLY SIGNED> By: Kavon Koch MD, [facility] 10/21/18 08 16 16 Kavon Koch MD, [facility] /EPI
--- NOTE | 2018-10-21 09:51 | NUR ---
ASSESSMENT: CM REVIEWED CHART AND MET WITH PATIENT AT THE BEDSIDE. PT WAS ADMITTED WITH UTI/PNA. PT IS A LTC RESIDENT AT [facility]. PT AND HIS HAVE RECENTLY MOVED INTO [facility] FOR A LITTLE OVER A MONTH OR SO. PT USES A WHEELCHAIR AT THE FACILITY. CM SPOKE WITH PATIENTS SON/KELLI VELOZ AND CONFIRMED INFORMATION. PT IS ALSO IN HIS LIFETIME RESERVE DAYS AND CM NOTIFIED PATIENTS SON/DPDOREEN VELOZ WHO IS AWARE AND AGREEABLE. FORM COMPLETED. CM ALSO FAXED UPDATED CLINIAL TO [facility] AND SPOKE WITH JOHN IN ADMISSIONS. PLANS ARE FOR PATIENT TO RETURN TO [facility] ONCE MEDICALLY STABLE. CM WILL CONTINUE TO FOLLOW TO ASSIST NEEDED.
[2018-10-21 11:12] VITALS: BP 109/53
[2018-10-21 15:16] VITALS: BP 87/44
[2018-10-21 17:03] VITALS: BP 123/63
[2018-10-21 19:52] VITALS: BP 79/42
--- NOTE | 2018-10-21 20:20 | NUR ---
Assumed care approx. [address] Catherine contacted this AM about no scale parameters on insulin order. Dr. Aldridge said to hold insulin until he comes in tonight, orders were put in before shift change this evening. No residuals this AM and early afternoon for tube feed, but 40 ml residual this evening. The patient vomited once and was suctioned immediately. RT was in the room shortly after and O2 sats remained adequate then a scheduled breathing treatment was given shortly after. Around 1315 this afternoon, the patient's blood pressure became soft at 87/44. This RN personally rechecked it and the outcome was 80/45. Dr. Catherine paged immediately and orders were given for a 500 ml fluid bolus; then he stated if it doesn't come back up then he may have to be transferred to the ICU. After the fluid bolus, the SBP was back in the 120's and the patient was much more awake than earlier in the day. Earlier this morning to early afternoon, the patient was lethargic and drowsy. Closer to shift change the patient aroused while sitting up in bed and was trying to speak incomprehensible sounds. Fall precautions are in place. Slight progress toward plan of care goals at this time.
[2018-10-22] VITALS (79 sets, daily range): BP systolic 72–133; BP diastolic 35–70
[2018-10-22 02:06] LABS: ABSOLUTE NEUTROPHILS 6.3 thou/uL (1.4-8.2); EOSINOPHILS 0.4 % (0.0-3.0); HEMATOCRIT 28.4 % (42.0-52.0); HEMOGLOBIN 8.6 gm/dL (14.0-18.0); LYMPHOCYTES 45.1 % (24.0-44.0); MCH 29.4 pg (26.0-34.0); MCHC 30.1 g/dL (28.0-37.0); MONOCYTES 3.6 % (1.0-8.0); PLATELET COUNT 109 thou/uL (150-400); POLYS 49.9 % (36.0-66.0); RBC 2.92 mil/uL (4.50-6.00); RDW 17.3 % (10.5-14.5); WBC 12.6 thou/uL (4.0-11.0)
[2018-10-22 02:07] LABS: MCV 97.6 fL (80.0-100.0)
[2018-10-22 02:11] LABS: CALCIUM 8.4 mg/dL (8.5-10.1); CREATININE 3.7 mg/dL (0.7-1.3)
[2018-10-22 02:12] LABS: POTASSIUM 4.7 mmol/L (3.5-5.1)
[2018-10-22 02:37] LABS: BE(vivo) -4.1 mmol/L (-2 to +3); HCO3 22.2 mmol/L (22.0-26.0); PCO2 46.3 mmHg (35.0-45.0); PO2 223.2 mmHg (80.0-100.0); sO2 99.4 % (92.0-98.0)
[2018-10-22 02:38] LABS: pH 7.299 (7.360-7.450)
--- NOTE | 2018-10-22 02:39 | NUR ---
0125 JUST AFTER PT BEING TURNED, CONDITION CHANGED SUDDENLY, HIS BREATHING AND AROUSAL DECREASED. RAT CALLED, THEN IT ESCALATED INTO A CODE SITUATION. BREATHING AGONAL WHEN CODE TEAM ARRIVED, CPR AND MEDICATIONS GIVEN PER CODE TEAM AND PROTOCAL. PT TRANSFER TO ICU WITHIN 30 MINUTES OF INITIATION OF CODE.
--- NOTE | 2018-10-22 04:29 | NUR ---
Assumed care of patient around 0230. Report received from Grecia MAY, she has made several attempts to contact son. Will continue to try. Dopamine gtt initiated and titrated for low BP. Able to keep MAP >65. Patient waking up more, initally able to follow commands, move extremities. Patient becoming very anxious, jerking with any noise or touch, pulling against restraints, reaching for tubes and lines. RASS increased +2 to +3. Dr. Kat contacted, Propofol gtt initiated for sedation.
[2018-10-22 06:24] LABS: ALBUMIN 1.7 g/dL (3.4-5.0); CALCIUM 8.4 mg/dL (8.5-10.1); CREATININE 3.7 mg/dL (0.7-1.3); PHOSPHORUS 2.7 mg/dL (2.5-4.9); POTASSIUM 4.5 mmol/L (3.5-5.1)
[2018-10-22 07:50] LABS: BE(vivo) -0.4 mmol/L (-2 to +3); HCO3 24.7 mmol/L (22.0-26.0); PCO2 42.4 mmHg (35.0-45.0); PO2 298.6 mmHg (80.0-100.0); pH 7.384 (7.360-7.450); sO2 99.7 % (92.0-98.0)
--- NOTE | 2018-10-22 08:51 | EKG ---
[address] [place] [address] ELECTROCARDIOGRAM REPORT Name: ROCKY TEJEDA Room #: 239-P ADM IN M.R.#: [id number] Admission: 10/18/18 Attend Phys: Israel Catherine MD Discharge: Date of : 42 Report #: [id number] THIS REPORT FOR: //name// [facility] Test Date: 2018-10-22 Test Time: 01:51:11 Pat Name: ROCKY TEJEDA Department: Room: 239 Gender: M Equine Dentist: ALAN : 1940 Requested By: Israel Catherine Order Number: [id number] MD: Kavon Koch Measurements Intervals [place] Rate: 94 P: 42 [place]: 192 QRS: -99 QRSD: 151 T: 59 QT: 410 QTc: 513 Interpretive Statements Sinus rhythm Atrial premature complex RBBB and LAFB Compared to ECG 10/18/2018 23:17:51 Atrial premature complex(es) now present Electronically Signed On 10-22-2018 8:51:07 CDT by Kavon Koch [email or web address] <ELECTRONICALLY SIGNED> By: Kavon Koch MD, [facility] 10/22/18 0851 0151 0151 Kavon Koch MD, [facility] /EPI
--- NOTE | 2018-10-22 14:14 | NUR ---
VASCULAR ACCESS NOTE ORDER FOR CENTRAL LINE VERIFIED. CONSENT OBTAINED FROM FAMILY. R IJ WAS WIDELY PATENT. LIDOCAINE GIVEN SUB Q. 6FR TL 25CM JACC CATHETER INSERTED TO 13CM EXTERNAL AFTER MULTIPLE TIMES REPOSITIONING DUE TO LINE CURLING. LINE PLACED PER HOSPITAL P&P. CXR CONFIRMED LINE TERMINATES IN THE SVC. LINE RELEASED TO MADAI RN PER PROTOCOL.
--- NOTE | 2018-10-22 15:57 | NUR ---
INTERVENTIONS AND ASSESSMENTS DOCUMENTED. PATIENT REMAINS INTUBATED AND ON MECHANICAL VENTILATION. PATIENT OPENS EYES AND FOLLOWS COMMANDS WHEN ASKED TO SQUEEZE HANDS. PATIENTS FAMILY EDUCATED ABOUT PATIENT CONDITION. PATIENT NPO THIS MORNING RELATED TO ASPIRATION OF GASTRIC CONTENTS. ORAL MEDICATIONS HELD PER DR BLOCK UNTIL REGLAN WAS GIVEN. DR. BLOCK ORDERED RECTAL THERMOMETER PLACEMENT. THERMOMETER WAS PLACED WITHOUT DIFFICULTY. CENTRAL LINE PLACED PER PHYSCIAN ORDER. CENTRAL LINE PLACED BY IV TEAM AND X RAY CONFIRMED PLACEMENT. PATIENT TOLERATED PROCEDURE WELL. BLANKET WARMER PLACED PER DR. BLOCK. REGLAN ADMINISTERED AND PO MEDICATIONS GIVEN THROUGH OG TUBE. SUCTION HELD UNTIL ABSORBTION OF MEDICATIONS. PLAN OF CARE IS TO CONITNUE TO MONTITOR BLOOD PRESSURE, ENSURE PATNETCY OF AIRWAY AND TREAT INFECTION.
--- NOTE | 2018-10-22 16:18 | EKG ---
[place] [address] [facility] [place] [address] ELECTROCARDIOGRAM REPORT Name: ROCKY TEJEDA Room #: 239-P ADM IN M.R.#: [id number] Admission: 10/18/18 Attend Phys: Israel Catherine MD Discharge: Date of : 42 Report #: [id number] THIS REPORT FOR: //name// [facility] Test Date: 2018-10-22 Test Time: 07:01:00 Pat Name: ROCKY TEJEDA Department: Room: 239 P Gender: M Apartment Leasing Manager: CHARIS : 1940 Requested By: Israel Catherine Order Number: [id number] MD: Kavon Koch Measurements Intervals [place] Rate: 71 P: 67 [place]: 194 QRS: -84 QRSD: 147 T: 56 QT: 492 QTc: 535 Interpretive Statements Sinus rhythm Frequent premature ventricular complexes RBBB and LAFB Compared to ECG 10/22/2018 01:51:11 Ventricular premature complex(es) now present Atrial premature complex(es) no longer present Electronically Signed On 10-22-2018 16:18:03 CDT by Kavon Koch [email or web address] <ELECTRONICALLY SIGNED> By: Kavon Koch MD, [facility] 10/22/18 1618 Kavon Koch MD, [facility] /EPI
[2018-10-23] VITALS (91 sets, daily range): BP systolic 81–133; BP diastolic 40–582
[2018-10-23 05:08] LABS: HEMATOCRIT 26.2 % (42.0-52.0); HEMOGLOBIN 8.8 gm/dL (14.0-18.0); MCH 29.7 pg (26.0-34.0); MCHC 33.4 g/dL (28.0-37.0); RBC 2.95 mil/uL (4.50-6.00); RDW 16.1 % (10.5-14.5); WBC 9.8 thou/uL (4.0-11.0)
[2018-10-23 05:14] LABS: ALBUMIN 1.5 g/dL (3.4-5.0); CALCIUM 8.3 mg/dL (8.5-10.1); CREATININE 4.1 mg/dL (0.7-1.3); PHOSPHORUS 2.4 mg/dL (2.5-4.9); POTASSIUM 3.7 mmol/L (3.5-5.1)
[2018-10-23 05:49] LABS: BE(vivo) -2.1 mmol/L (-2 to +3); HCO3 22.9 mmol/L (22.0-26.0); PCO2 40.1 mmHg (35.0-45.0); PO2 75.3 mmHg (80.0-100.0); pH 7.375 (7.360-7.450); sO2 94.8 % (92.0-98.0)
--- NOTE | 2018-10-23 07:26 | NUR ---
RECEIVED REPORT FROM YADIRA ROMO AND ASSUMED PATIENT CARE AT 1900. PATIENT LYING IN BED AND IS NOTED TO BE ON THE VENTILATOR WITH PROPOFOL AND DOPAMINE INFUSING. PATIENT FOLLOWS ALL COMMANDS ON ASSESSMENT. PATIENT VS REMAINED STABLE DURING THIS SHIFT AND NO ACUTE EVENTS OCCURRED. SON UPDATED ON PATIENT'S CURRENT CONDITION.
--- NOTE | 2018-10-23 13:53 | NUR ---
FAXED CLINICAL UPDATE TO [facility] SPOKE WITH JOHN IN ADM. SHE RECEIVED UPDATE. DCP TO FOLLOW.
--- NOTE | 2018-10-23 19:12 | NUR ---
ASSESSMENTS AND INTERVENTIONS DOCCUMENTED. SEE TITRATIONS. PATIENT REMAINS INTUBATED, SEDATED AND ON THE VENT. PATIENT FOLLOWS COMMANDS WHEN ASKED. PATIENT REMAINS ON DOPAMINE. PATIENTS SON ROSELIA UPDATED ABOUT THE PLAN OF CARE. THE PLAN OF CARER IS TO CONTINUE TO MONTIOR OUTPUT, LABS AND AIRWAY. REPORT GIVEN TO TELETYPESETTER NURSE
[2018-10-24] VITALS (65 sets, daily range): BP systolic 13–1119; BP diastolic 43–75
[2018-10-24 04:45] LABS: ALBUMIN 1.5 g/dL (3.4-5.0); CALCIUM 8.2 mg/dL (8.5-10.1); CREATININE 4.1 mg/dL (0.7-1.3); PHOSPHORUS 2.7 mg/dL (2.5-4.9); POTASSIUM 3.4 mmol/L (3.5-5.1)
--- NOTE | 2018-10-24 06:27 | NUR ---
RECEIVED REPORT FROM YADIRA ROMO AND ASSUMED PATIENT CARE AT 1900. PATIENT REMAINS ON THE VENTILATOR WITH PROPOFOL AND DOPAMINE INFUSING. PATIENT NOTED TO HAVE INCREASED GENERALIZED EDEMA IN THE SCROTUM WELL. PATIENT FOLLOWS COMMANDS UPON REQUEST. PATIENT'S BODY TEMPERATURE LOWERED AND THIS RN PLACED THE VANESSA HUGGER ON PATIENT. NO ACUTE EVENTS OCCURRED AND VS REMAINED STABLE DURING THIS SHIFT. HOURLY ROUNDING COMPLETED AND PATIENT MONITORED CLOSELY.
--- NOTE | 2018-10-24 15:39 | NUR ---
PT IS DROWSY AND DOES NOT FOLLOW COMMANDS. ON DOPAMINE DRIP AT 2MCG/ FOR BLOOD PRESSURE SUPPORT. VARGAS TO DD. LUNGS ARE CLEAR TO DIMINISHED. REMAINS ON THE VENT. FECAL MANANGEMENT SYSTEM. BEAR HUGGER ON FOR TEMPERATURE. NOT TOERLATING TUBE FEEDING HIGH RESIDUAL OF 200 SO STOPED TUBE FEEDING . SINCE PT NOT TOLERATING. ADOMEN IS ROUND BOWEL SOUNDS ACTIVE. SCDS ON BILATERAL. SINUS TACH V-PACED ON THE CARDIAC MONIOR WILL CONTINUE TO ASSESS AND MONITOR PER NURSING
--- NOTE | 2018-10-24 16:40 | NUR ---
FOLLOWIING FOR DC PLANNING. CLINICAL INFO REVIEWED. PT CODED 10/22 A ND INTUBATED AND REMIANS ON VENT NOT READY FOR CPAP TRIALS R/T OTHER COMORBID CONDITIONS. 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 DR. DODSON AND DR. ANTHONY HAVE COMMUNICATED PT'S CONDITION AND POOR PROGNOSIS WITH DPOA SON ROSELIA AND AT PRESENT, FAMILY WISHES TO REMAIN AGGRESSIVE IN TREATMENT. PT AND SPOUSE ARE [facility] RESIDENTS AT [facility], FACILITY UPDATED.
[2018-10-25] VITALS (63 sets, daily range): BP systolic 96–145; BP diastolic 48–71
[2018-10-25 05:06] LABS: HEMATOCRIT 23.5 % (42.0-52.0); HEMOGLOBIN 7.8 gm/dL (14.0-18.0); MCH 29.6 pg (26.0-34.0); MCHC 33.4 g/dL (28.0-37.0); MCV 88.6 fL (80.0-100.0); RBC 2.65 mil/uL (4.50-6.00); RDW 16.8 % (10.5-14.5); WBC 10.8 thou/uL (4.0-11.0)
[2018-10-25 05:21] LABS: ALBUMIN 1.6 g/dL (3.4-5.0); CALCIUM 8.1 mg/dL (8.5-10.1); CREATININE 4.4 mg/dL (0.7-1.3); POTASSIUM 3.4 mmol/L (3.5-5.1)
[2018-10-25 05:23] LABS: ALBUMIN 1.6 g/dL (3.4-5.0); DIRECT BILIRUBIN 0.1 mg/dL (<0.1-0.3); TOTAL BILIRUBIN 0.2 mg/dL (<0.1-1.0); TOTAL PROTEIN 5.8 g/dL (6.4-8.2)
--- NOTE | 2018-10-25 06:41 | NUR ---
RECEIVED REPORT FROM YADIRA LIEBERMAN AND ASSUMED PATIENT CARE AT 1900. PATIENT NOTED TO STILL BE ON THE VENT WITH PROPOFOL AND DOPAMINE INFUSING. PATIENT DOES NOT FOLLOW COMMANDS. PATIENT TEMPERATURE WAS BELOW NORMAL LIMITS AND SO VANESSA HUGGER PLACED. MONITORED PATIENT CLOSELY AND UPDATED SON ON PATIENT CURRENT STATUS.
[2018-10-25 11:38] LABS: BE(vivo) -0.6 mmol/L (-2 to +3); HCO3 23.4 mmol/L (22.0-26.0); PCO2 35.5 mmHg (35.0-45.0); PO2 150.4 mmHg (80.0-100.0); pH 7.436 (7.360-7.450)
--- NOTE | 2018-10-25 20:23 | NUR ---
ASSUMED CARE @ 0700 10/25/18, PT ASSESSMENTS AND VSS COMPLETE PER ICU PROTOCOL. PT NOT FOLLOWING COMMANDS AT THIS TIME, ASSESSMENTS WERE DONE OFF SEDATION. PT ON THE VENT, PLEASE SEE PROCESS INTERVENTIONS FOR SPECIFICS. PT V-PACED, BBB, 1AVB, AFIB ON THE MONITOR. VARGAS IN PLACE, DIALYSIS WAS PERFORMED TODAY, 2L OFF, PT ABLE TO TOLERATE WELL. OG AND PEG TUBE STILL IN PLACE, TF ON HOLD DUE TO HIGH RESIDUALS. FAMILY AT BEDSIDE, RN UPDATED ON CARE. FALL PRECAUTIONS IN PLACE. PLAN OF CARE- CONT TO MONITOR.
[2018-10-26] VITALS (29 sets, daily range): BP systolic 86–144; BP diastolic 41–66
[2018-10-26 02:08] LABS: HEP B SURFACE Ab(ANTI-HBS Reactive (()); HEPATITIS B SURFACE AG Negative (Negative)
[2018-10-26 04:58] LABS: ALBUMIN 1.5 g/dL (3.4-5.0); PHOSPHORUS 3.2 mg/dL (2.5-4.9); POTASSIUM 3.9 mmol/L (3.5-5.1)
[2018-10-26 04:59] LABS: % SATURATION 30 % (20-39); CREATININE 2.5 mg/dL (0.7-1.3); IRON 33 ug/dL (65-175); TIBC 111 ug/dL (250-450)
--- NOTE | 2018-10-26 06:02 | NUR ---
KEEPING O2 SATS GREATER THAN 95% THIS SHIFT. INCREASED THE VANESSA HUGGAIR TO LEVEL HIGH, AND KEPT IT PULLED UP AROUND HIS NECK. CORE TEMPERATURE IS INCREASING AND REMAINING STABLE. NO VISITORS TONIGHT. CONTINUES TO RESPOND ONLY TO PAINFUL STIMULI.CONTINUES ON A PROPOFOL GTT. TURNS AND BATHING COMPLETED. CAREPLAN REVIEWED.
--- NOTE | 2018-10-26 17:06 | NUR ---
PATIENT RESPONDS TO PAINFUL STIMULI, SPONTANEOUSLY OPENS EYES ON SEDATION VACATION. PACED ON GUEST RELATION OFFICER. ON VENTILATOR, 30%FIO2. PEG TUBE AND RECTAL TUBE IN PLACE. VARGAS PATENT AND DRAINING. TURNED Q2H. BEAR HUGGER IN PLACE FOR TEMPERATURE CONTROL. FAMILY UPDATED ON THE PLAN OF CARE. NO SIGNS OF ACUTE DISTRESS NOTED AT THIS TIME. WILL CONTINUE TO MONITOR.
--- NOTE | 2018-10-26 23:45 | NUR ---
ASSUMED CARE OF PT AT 1900. PT INTUBATED ON ON VENT, SEDATED WITH PROPOFOL. PT INITIALLY MINIMALLY RESPONSIVE AND BP SOFT, PROPOFOL TITRATED DOWN. PT'S MAP DROPPED BELOW 60, EVEN WITH LOW DOSE OF PROPOFOL. DR. BLOCK CALLED AND PRESSOR CHANGED FROM DOPAMINE TO LEVOPHED D/T ELEVATED HR. BEFORE LEVO GTT INITIATED, PT'S SEDATION WORE OFF AND PT BEGAN COUGHING/GAGGING. PT SUCTIONED AND HAD A LARGE AMOUNT OF SECRETIONS FROM ET TUBE AND ORAL. PROPOFOL INCREASED. BP HAD INCREASED WITH COUGHING/SUCTIONING AND LEVO GTT NO LONGER INDICATED AT THAT TIME, BUT GTT WAS HUNG IN PREPARATION IF THE PT'S BP DROPPED AGAIN. PT NOW APPROPRIATELY SEDATED AND BP STABLE. REPORT GIVEN TO RAJIV AT 2330.
[2018-10-27] VITALS (36 sets, daily range): BP systolic 79–162; BP diastolic 38–69
[2018-10-27 04:25] LABS: CALCIUM 7.8 mg/dL (8.5-10.1); POTASSIUM 3.8 mmol/L (3.5-5.1)
--- NOTE | 2018-10-27 06:50 | NUR ---
FOLLOWING POC FOR PT WITH PROPOFOL AND NOEIPI INFUSING TO RAISE BP TO GET MAP ABOVE 60. PT VARGAS IN PLACE WELL FECAL MANAGEMENT SYSTEM. Q2 TURNS. PT OPENS EYES A FEW TIMES DURING SHIFT. BLOOD SUGARS RUNNING CONSISTENTLY AROUND 140. HOURLY ROUNDING.
--- NOTE | 2018-10-27 14:17 | NUR ---
GI PHYSICIAN HERE ON UNIT. NURSE ASKED HIM TO LOOK AT HIS PATIENT WITH THE CLOTS AND THE BLOOD AROUND HIS RECTAL TUBE. HE EXPRESSED TO CONTINUE TO MONITOR AND CALL HIM BACK IF IT PERSISTS.
--- NOTE | 2018-10-27 19:30 | NUR ---
PATIENT ASSESSMENTS AND VITAL SIGNS DOCUMENTED. PATIENT BLOOD PRESSURE SOFT IN THE 1800 HOUR, LEVOPHED RESTARTED. NURSE NOTIFIED DR. ARTEAGA OF SMALL AMOUNT OF RECTAL BLEEDING NOTED IN EARLIER NOTE AND OF PATIENTS BLOOD PRESSURE. HE IS COMING TO ROUND ON PATIENT. STAT H/H ORDERED BY HIM. REPORT GIVEN TO TELEVISION AUDIO ENGINEER RN FOR CONTINUATION OF CARE. NURSE CHECKED PATIENTS PAD IN THE 1800 HOUR AND IT WAS CLEAN, NO EVIDENCE AT THIS MOMENT OF FURTHER BLEEDING.
[2018-10-27 19:52] LABS: HEMATOCRIT 24.2 % (42.0-52.0); HEMOGLOBIN 8.2 gm/dL (14.0-18.0)
[2018-10-28] VITALS (50 sets, daily range): BP systolic 88–146; BP diastolic 37–71
[2018-10-28 05:42] LABS: HEMATOCRIT 24.7 % (42.0-52.0); HEMOGLOBIN 8.2 gm/dL (14.0-18.0); MCH 29.6 pg (26.0-34.0); MCV 89.6 fL (80.0-100.0); RBC 2.76 mil/uL (4.50-6.00); RDW 16.7 % (10.5-14.5); WBC 12.1 thou/uL (4.0-11.0)
[2018-10-28 06:00] LABS: ALBUMIN 1.6 g/dL (3.4-5.0); CALCIUM 8.2 mg/dL (8.5-10.1); CREATININE 3.3 mg/dL (0.7-1.3); POTASSIUM 4.1 mmol/L (3.5-5.1); TOTAL BILIRUBIN 0.3 mg/dL (<0.1-1.0); TOTAL PROTEIN 5.9 g/dL (6.4-8.2)
--- NOTE | 2018-10-28 15:09 | NUR ---
PT RESIDES AT [facility] FAXED CLINICAL UPDATE TO FACILITY SPOKE WITH JOHN IN ADM SHE RECEIVED UPDATE. DCP TO FOLLOW.
[2018-10-28 15:51] LABS: BE(vivo) 3.5 mmol/L (-2 to +3); HCO3 27.3 mmol/L (22.0-26.0); PCO2 38.2 mmHg (35.0-45.0); PO2 106.4 mmHg (80.0-100.0); pH 7.472 (7.360-7.450); sO2 98.2 % (92.0-98.0)
--- NOTE | 2018-10-28 19:42 | NUR ---
ASSUMED CARE @ 0700 10/28/18, PT ASSESSMENTS AND VSS COMPLETE PER ICU PROTOCOL. PT NOT FOLLOWING COMMANDS, PROPOFOL GTT OFF AT THIS TIME. PT ON THE VENT, STILL SAME VENT SETTING. PT SR; PACED; BBB; PROLONGED QT INTERVAL ON THE MONITOR. OG AND PEG STILL CLAMPED, NO GJ PLACEMENT TODAY, IR DOCTOR STATES THAT HE WOULD FEEL MORE COMFORTABLE DOING THE SURGERY WHEN PT TRANSFERS OUT OF THE ICU. DIALYSIS TODAY 2.6 L OFF. PLAN OF CARE- CONT TO MONITOR.
[2018-10-29] VITALS (82 sets, daily range): BP systolic 68–159; BP diastolic 30–64
[2018-10-29 03:24] LABS: HEMATOCRIT 24.5 % (42.0-52.0); HEMOGLOBIN 7.9 gm/dL (14.0-18.0); MCH 29.4 pg (26.0-34.0); MCHC 32.3 g/dL (28.0-37.0); MCV 91.2 fL (80.0-100.0); PLATELET COUNT 176 thou/uL (150-400); RBC 2.69 mil/uL (4.50-6.00); RDW 17.4 % (10.5-14.5); WBC 8.9 thou/uL (4.0-11.0)
[2018-10-29 03:36] LABS: ALBUMIN 1.6 g/dL (3.4-5.0); CALCIUM 8.5 mg/dL (8.5-10.1); PHOSPHORUS 4.6 mg/dL (2.5-4.9); POTASSIUM 4.5 mmol/L (3.5-5.1)
[2018-10-29 03:49] LABS: CREATININE 2.2 mg/dL (0.7-1.3)
[2018-10-29 04:08] LABS: ABSOLUTE NEUTROPHILS 7.4 thou/uL (1.4-8.2); ANISOCYTOSIS 1+; METAMYELOCYTES 0 %
[2018-10-29 05:41] LABS: BE(vivo) -8.1 mmol/L (-2 to +3); HCO3 15.9 mmol/L (22.0-26.0); PCO2 27.9 mmHg (35.0-45.0); PO2 116.2 mmHg (80.0-100.0); pH 7.375 (7.360-7.450); sO2 98.2 % (92.0-98.0)
--- NOTE | 2018-10-29 05:58 | NUR ---
END OF SHIFT NOTE: RECEIVED REPORT FROM OFFGOING NURSE AND ASSUMED PATIENT CARE AT 1900. PATIENT NOTED TO STILL BE ON THE VENTILATOR. PATIENT DOES NOT CURRENTLY HAVE ANY SEDATION OR RESTRAINTS SINCE PATIENT IS NOT AT RISK AT EXTUBATING SELF. PATIENT WILL SENSE WHEN THIS RN IS PRESENT IN THE ROOM AND WILL GRASPS HANDS EACH TIME ON COMMAND. PATIENT ALSO NOTED TO PICK HIS HEAD OFF THE PILLOW. HOWEVER, PATIENT DOES NOT MOVE THE LOWER EXTREMITIES ON COMMAND. PATIENT BP DROPPED DURING THIS SHIFT AND WENT LOW 68/31. LEVOPHED WAS RESTARTED TO MAINTAIN VITAL PRESSURE. DURING THIS PERIOD, WHILE THE BP WAS LOW, PATIENT STILL SQUEEZED THIS RN'S HAND. PATIENT REMAINED ON LEVOPHED FOR REMAINDER OF SHIFT.
--- NOTE | 2018-10-29 17:21 | NUR ---
ASSUMED CARE @ 0700 10/29/18, PT ASSESSMENTS AND VSS COMPLETE PER ICU PROTOCOL. PT OFF SEDATION, PT SEEMED LIKE HE FOLLOWED COMMANDS THIS AM AEB SQUEEZING HANDS THIS AM BUT WHEN OBSERVED AND ASSESSED BY DR MANDEL HE STATES ITS MORE LIKE REFLEXES. PT V-PACED, ST, BBB, PROLONGED QT INTERVAL ON THE MONITOR, PT ON LEVO GTT FOR BP MANAGEMENT FOR MAP GREATER THAN 6O. PT STILL ON THE VENT, STILL THE SAME SETTINGS, PT DID FAIL CPAP TODAY, HE KEPT ON GOING APNEIC AND HR BECAME ELEVATED AND SO WAS SWITCHED TO A/C. G-J TUBE PLACED TODAY, NO COMPLICATIONS NOTED. SPOKE TO CARMEN MAY IN IR, SHE CONFIRMS WITH DR MARTINES THAT GJ TUBE IS OK TO USE. VARGAS STILL IN PLACE, HD TOMORROW. PLAN OF CARE- CONT TO MONITOR.
[2018-10-30] VITALS (52 sets, daily range): BP systolic 81–163; BP diastolic 37–79
[2018-10-30 05:38] LABS: ALBUMIN 1.8 g/dL (3.4-5.0); CALCIUM 8.2 mg/dL (8.5-10.1); CREATININE 3.1 mg/dL (0.7-1.3); HEMATOCRIT 21.8 % (42.0-52.0); HEMOGLOBIN 7.1 gm/dL (14.0-18.0); MCH 29.2 pg (26.0-34.0); MCHC 32.6 g/dL (28.0-37.0); MCV 89.6 fL (80.0-100.0); PLATELET COUNT 205 thou/uL (150-400); POTASSIUM 3.9 mmol/L (3.5-5.1); RBC 2.43 mil/uL (4.50-6.00); RDW 17.2 % (10.5-14.5); TOTAL BILIRUBIN 0.3 mg/dL (<0.1-1.0); TOTAL PROTEIN 5.8 g/dL (6.4-8.2); WBC 9.9 thou/uL (4.0-11.0)
[2018-10-30 05:50] LABS: BE(vivo) -1.3 mmol/L (-2 to +3); HCO3 23.1 mmol/L (22.0-26.0); PCO2 36.7 mmHg (35.0-45.0); pH 7.416 (7.360-7.450); sO2 87.1 % (92.0-98.0)
[2018-10-30 05:52] LABS: PO2 51.2 mmHg (80.0-100.0)
--- NOTE | 2018-10-30 06:40 | NUR ---
PATIENT SPONTANEOUSLY OPENS EYES WHEN NAME IS CALLED. ABLE TO WIGGLE FINGERS WHEN ASKED TO SQUEEZE HAND. PAIN CONTROLLED WITH MEDICATION. PACED ON FURNACE COMBUSTION ANALYST. ON VENTILATOR 30% FIO2. G/J TUBE IN PLACE, TOLERATING TUBE FEEDINGS. VARGAS PATENT WITH MINIMAL OUTPUT. DIALYSIS SCHEDULED FOR TODATY. RIGHT IJ INTACT, LEVOFED TO MAINTAIN BLOOD PRESSURE. BLOOD SUGAR MONITGORED. SON UPDATED ON THE PLAN OF CARE. NO SIGNS OF ACUTE DISTRESS NOTED AT THIS TIME. WILL CONTINUE TO MONITOR.
[2018-10-30 08:50] LABS: ABSOLUTE NEUTROPHILS 8.2 thou/uL (1.4-8.2); METAMYELOCYTES 1 %; PLATELET ESTIMATE NORMAL
[2018-10-30 10:49] LABS: APTT 27.8 Seconds (24.5-32.8)
[2018-10-30 11:02] LABS: INR 1.1; PROTIME 11.6 Seconds (9.3-11.4)
[2018-10-30 15:47] LABS: HEMATOCRIT 24.7 % (42.0-52.0); HEMOGLOBIN 8.3 gm/dL (14.0-18.0)
[2018-10-30 21:47] LABS: HEMATOCRIT 24.1 % (42.0-52.0); HEMOGLOBIN 8.1 gm/dL (14.0-18.0)
[2018-10-31] VITALS (61 sets, daily range): BP systolic 78–133; BP diastolic 26–64
[2018-10-31 02:51] LABS: HEMATOCRIT 22.8 % (42.0-52.0); HEMOGLOBIN 7.5 gm/dL (14.0-18.0)
[2018-10-31 04:10] LABS: BE(vivo) 1.3 mmol/L (-2 to +3); HCO3 24.4 mmol/L (22.0-26.0); PCO2 32.4 mmHg (35.0-45.0); PO2 58.4 mmHg (80.0-100.0); pH 7.495 (7.360-7.450); sO2 92.7 % (92.0-98.0)
[2018-10-31 06:15] LABS: HEMATOCRIT 21.7 % (42.0-52.0); HEMOGLOBIN 7.3 gm/dL (14.0-18.0); MCH 29.8 pg (26.0-34.0); MCHC 33.7 g/dL (28.0-37.0); MCV 88.4 fL (80.0-100.0); PLATELET COUNT 172 thou/uL (150-400); RBC 2.46 mil/uL (4.50-6.00); RDW 16.4 % (10.5-14.5); WBC 11.7 thou/uL (4.0-11.0)
--- NOTE | 2018-10-31 06:25 | NUR ---
RECEIVED REPORT AND ASSUMED PATIENT CARE AT 1900. PATIENT REMAINS ON THE VENTILATOR AND WILL FOLLOW ALL COMMANDS (SQUEEZING HANDS BILATERALLY AND WIGGLING TOES). PATIENT NOTED TO HAVE A LARGE AMOUNT OF BLOOD WITH BLOOD CLOTS AND A SLOW, STEADILY FLOW. NOTIFIED MD AND PATIENT WAS TAKEN TO ND TO DO A SCAN. THE SCAN WAS POSITIVE FOR A HEPATIC FLEXURE BLEED. DR. FLORES WAS NOTIFIED OF THE RESULTS. THE PLAN IS PATIET WILL HAVE A COLONOSCOPY TODAY AND 2 UNITS OF BLOOD ARE ON STANDBY TO TRANSFUSE FOR A HGB OF LESS THAN 7. LATER ASSESSMENTS FOUND PATIENT'S BLEEDING SLOWED AND NO LARGE BLOOD CLOTS WERE SEEN BEFORE. PATIENT'S VS REMAINED STABLE AND NO OTHER ACUTE EVENTS OCCURRED DURING THIS SHIFT. PATIENT MONITORED CLOSELY FOR ANY WORSENING OF BLEEDING AND DETERIOATING CONDITIONS.
[2018-10-31 06:33] LABS: ALBUMIN 1.6 g/dL (3.4-5.0); CALCIUM 7.7 mg/dL (8.5-10.1); CREATININE 2.2 mg/dL (0.7-1.3); PHOSPHORUS 3.6 mg/dL (2.5-4.9); POTASSIUM 3.6 mmol/L (3.5-5.1)
[2018-10-31 07:43] LABS: ABSOLUTE NEUTROPHILS 10.4 thou/uL (1.4-8.2); PLATELET ESTIMATE NORMAL
[2018-10-31 07:44] LABS: ANISOCYTOSIS 1+
--- NOTE | 2018-10-31 08:10 | EKG ---
[place] [address] [facility] [place] [address] ELECTROCARDIOGRAM REPORT Name: ROCKY TEJEDA Room #: 239-P ADM IN M.R.#: [id number] Admission: 10/18/18 Attend Phys: Israel Catherine MD Discharge: Date of : 44 Report #: [id number] THIS REPORT FOR: //name// [facility] Test Date: 2018-10-30 Test Time: 14:32:07 Pat Name: ROCKY TEJEDA Department: Room: 239 P Gender: M Stitching Department Supervisor: CHARIS : 1940 Requested By: Kavon Koch Order Number: [id number] MD: Kavon Koch Measurements Intervals [place] Rate: 113 P: 83 NM: 154 QRS: -100 QRSD: 134 T: 69 QT: 358 QTc: 491 Interpretive Statements Sinus tachycardia Multiple ventricular premature complexes RBBB and LAFB Compared to ECG 10/22/2018 07:01:00 heart rate has increased Electronically Signed On 10-31-2018 8:10:13 CDT by Kavon Koch [email or web address] <ELECTRONICALLY SIGNED> By: Kavon Koch MD, [facility] 10/31/18809 [id number] [id number] Kavon Koch MD, [facility] /EPI
--- NOTE | 2018-10-31 18:49 | NUR ---
COLONOSCOPY DONE AT BEDSIDE THIS AFTERNOON. PT BECAME HYPOTENSIVE DURING PROCEDURE. RE-STARTED LEVOPHED. REMAINS ON LEVO AT 2 MCG. NO CHANGES TO VENT SETTINGS. NO BLOODY STOOLS POST COLONOSCOPY. MONITORING HGB. OKAY TO RESTART TUBE FEEDS. FAMILY UPDATED ON PATIENT STATUS.
[2018-11-01] VITALS (60 sets, daily range): BP systolic 88–154; BP diastolic 33–73
[2018-11-01 00:27] LABS: HEMATOCRIT 21.2 % (42.0-52.0)
--- NOTE | 2018-11-01 04:53 | NUR ---
INTUBATED ON VENT. FOLLOW SIMPLE COMMANDS. NO APPARENT PAIN. ON NO SEDATION, NO SIGNS OF DISTRESS NOTED. TOLERATING VENT SETTINGS. OFF LEVOPHED GTT AT 2200. VSS. AFEBRILE. WILL CONTINUE TO MONITOR.
[2018-11-01 05:38] LABS: MCHC 33.1 g/dL (28.0-37.0)
[2018-11-01 05:40] LABS: MCH 29.5 pg (26.0-34.0); RBC 2.22 mil/uL (4.50-6.00); RDW 16.5 % (10.5-14.5); WBC 13.1 thou/uL (4.0-11.0)
[2018-11-01 05:43] LABS: HEMOGLOBIN 6.5 gm/dL (14.0-18.0)
[2018-11-01 05:44] LABS: HEMATOCRIT 19.8 % (42.0-52.0)
[2018-11-01 05:45] LABS: ALBUMIN 1.7 g/dL (3.4-5.0); CALCIUM 7.6 mg/dL (8.5-10.1); CREATININE 2.8 mg/dL (0.7-1.3); PHOSPHORUS 4.6 mg/dL (2.5-4.9); POTASSIUM 3.9 mmol/L (3.5-5.1)
[2018-11-01 07:35] LABS: BE(vivo) -0.7 mmol/L (-2 to +3); HCO3 23.3 mmol/L (22.0-26.0); PCO2 35.2 mmHg (35.0-45.0); PO2 115.3 mmHg (80.0-100.0); pH 7.438 (7.360-7.450); sO2 98.4 % (92.0-98.0)
--- NOTE | 2018-11-01 09:39 | NUR ---
Recommend change formula to vital high protein at 40ml/hr; need approval and order from [facility].
[2018-11-01 11:24] LABS: HEMATOCRIT 23.7 % (42.0-52.0)
--- NOTE | 2018-11-01 16:38 | NUR ---
FOLLOWING FOR DC PLANNING. CLINICAL INFO REVIEWED. REMAINS ON VENT, HGB 6.5 TODAY, C-SCOPE YESTERDAY WITH INTERVENTION (SEE REPORT). [address] MANZO HAS COMMUNIATED WITH PT'S SON ABOUT MEDICAL CONDITION AND POOR PROGNOSIS FOR MEANINGFUL RECOVERY AND POSSIBLE TRACH NEEDED. AT PRESENT, FAMILY WISHES TO MAINTAIN AGGRESSIVE TREATMENT. DC BOX FINISHER TO UPDATE [facility] TODAY PT RESIDES IN LTC AT FACILITY
--- NOTE | 2018-11-01 18:28 | NUR ---
ASSUMED CARE @ 0700 11/01/18, PT ASSESSMENTS AND VSS COMPLETE PER ICU PROTOCOL. PT OFF SEDATION, PT RESPONSIVE TO TOUCH, PT ABLE TO FOLLOW COMMANDS AEB SQUEEZING HANDS AND WIGGLING FEET TO COMMAND. PT STILL ON THE VENT, PT ON CPAP MODE THE WHOLE SHIFT, PT ABLE TO TOLERATE FINE. PT ST; VPACED; PROLONGED QT ON THE MONITOR, PT AFEBRILE, EDEMA PRESENT. GJ AND OG STILL IN PLACE, NEPRO RUNNING AT 30ML/HR (GOAL), NO SIGNS OF RECTAL BLEEDING. VARGAS DC'D TODAY PER DR MANDEL, DIALYSIS TODAY 2.7L OFF, PT ABLE TO TOLERATE FINE. SON HERE DURING THE SHIFT TO VISIT, FALL PRECAUTIONS IN PLACE. PLAN OF CARE- CONT TO MONITOR.
[2018-11-02] VITALS (43 sets, daily range): BP systolic 80–167; BP diastolic 31–68
[2018-11-02 06:24] LABS: HEMATOCRIT 23.7 % (42.0-52.0); HEMOGLOBIN 7.8 gm/dL (14.0-18.0); MCH 29.2 pg (26.0-34.0); MCHC 33.1 g/dL (28.0-37.0); MCV 88.3 fL (80.0-100.0); RBC 2.68 mil/uL (4.50-6.00); RDW 17.1 % (10.5-14.5); WBC 13.5 thou/uL (4.0-11.0)
--- NOTE | 2018-11-02 06:35 | NUR ---
FOLLOWS COMMANDS. TOLERATING VENT SETTINGS. RESTLESS AND AGITATED DURING THE NIGHT. PT ON PRECEDEX. VSS. TOLERATING TF, ONGOING AT 30CC/HR GOAL. WOUND CARE PERFORMED. FREQUENT TURNS AND ORAL CARE DURING THE NIGHT. TALKED TO SON ROSELIA THIS AM, UPDATED ABOUT PT CARE. WILL CONTINUE TO MONITOR.
[2018-11-02 06:55] LABS: ALBUMIN 1.9 g/dL (3.4-5.0); CALCIUM 7.7 mg/dL (8.5-10.1); PHOSPHORUS 2.2 mg/dL (2.5-4.9); POTASSIUM 3.5 mmol/L (3.5-5.1)
[2018-11-02 06:58] LABS: CREATININE 1.8 mg/dL (0.7-1.3)
--- NOTE | 2018-11-02 19:33 | NUR ---
PATIENT TOLERATED CPAP FOR 5 HOURS TODAY. ALERT AND RESPONSIVE. MOVES LEFT HAND AND ARM MORE THAN RIGHT. VSS. TOLERATING TUBE FEEDING
[2018-11-03] VITALS (23 sets, daily range): BP systolic 115–156; BP diastolic 49–72
--- NOTE | 2018-11-03 05:57 | NUR ---
AWAKE ON VENT. TOLERATING VENT SETTINGS. AFEBRILE. VSS. TOLERATING TUBE FEEDING GOING IN GJ TUBE. NO APPARENT PAIN. WILL CONTINUE TO MONITOR PT.
[2018-11-03 06:16] LABS: ALBUMIN 1.7 g/dL (3.4-5.0); CALCIUM 7.9 mg/dL (8.5-10.1); CREATININE 2.1 mg/dL (0.7-1.3); PHOSPHORUS 2.2 mg/dL (2.5-4.9); POTASSIUM 3.2 mmol/L (3.5-5.1)
[2018-11-03 07:02] LABS: HEMATOCRIT 23.1 % (42.0-52.0); HEMOGLOBIN 7.6 gm/dL (14.0-18.0); MCH 29.3 pg (26.0-34.0); MCHC 32.9 g/dL (28.0-37.0); MCV 89.1 fL (80.0-100.0); RBC 2.6 mil/uL (4.50-6.00); WBC 12.5 thou/uL (4.0-11.0)
[2018-11-03 08:41] LABS: BE(vivo) 5.2 mmol/L (-2 to +3); HCO3 29.3 mmol/L (22.0-26.0); PCO2 41.5 mmHg (35.0-45.0); PO2 101.5 mmHg (80.0-100.0); pH 7.467 (7.360-7.450); sO2 97.9 % (92.0-98.0)
--- NOTE | 2018-11-03 19:25 | NUR ---
PATIENT REMAINS ON CPAP WITH FIO2 AT 30%. RESP RATE IN THE 20'S USLESS NEEDS TO BE SUCTIONED AND THEN RATE UP TO 50'S. SON CALLED IN AND INFORMED TO POC, VOICED HOPE THAT WE COULD WAIT UNTIL SUNDAY TO DO TRACH DISCUSSED LAST WEEK WITH DR MANZO. PLAN FOR DIALYSIS TOMORROW.
[2018-11-04] VITALS (45 sets, daily range): BP systolic 75–154; BP diastolic 39–80
[2018-11-04 04:58] LABS: BE(vivo) 1.2 mmol/L (-2 to +3); HCO3 24.5 mmol/L (22.0-26.0); PCO2 33.7 mmHg (35.0-45.0); PO2 130.1 mmHg (80.0-100.0); sO2 98.8 % (92.0-98.0)
[2018-11-04 04:58] LABS: ABSOLUTE NEUTROPHILS 10.5 thou/uL (1.4-8.2); BASOPHILS 0.4 % (0.0-2.0); EOSINOPHILS 0.2 % (0.0-3.0); HEMATOCRIT 24.8 % (42.0-52.0); HEMOGLOBIN 8.1 gm/dL (14.0-18.0); LYMPHOCYTES 8.4 % (24.0-44.0); MCH 29.2 pg (26.0-34.0); MCHC 32.6 g/dL (28.0-37.0); MCV 89.6 fL (80.0-100.0); MONOCYTES 7.8 % (1.0-8.0); PLATELET COUNT 170 thou/uL (150-400); POLYS 83.2 % (36.0-66.0); RBC 2.77 mil/uL (4.50-6.00); RDW 17.4 % (10.5-14.5); WBC 12.7 thou/uL (4.0-11.0)
[2018-11-04 05:16] LABS: ALBUMIN 1.9 g/dL (3.4-5.0); CALCIUM 7.9 mg/dL (8.5-10.1); CREATININE 2.2 mg/dL (0.7-1.3); POTASSIUM 3.5 mmol/L (3.5-5.1); TOTAL BILIRUBIN 0.3 mg/dL (<0.1-1.0); TOTAL PROTEIN 5.7 g/dL (6.4-8.2)
--- NOTE | 2018-11-04 06:15 | NUR ---
Received report from YADIRA Graff and assumed patient care at 1900. Patient is still on the ventilator and is currently in a CPaP trial. Patient is tolerating it well. Patient follows commands and is noted to move upper extremeties a lot more than previously. Patient also gave this RN a thumbs up when asked a question. VS remained stable during this shift and no acute events occurred. Son updated on patient's status. Patient is progressing toward goal.
--- NOTE | 2018-11-04 09:25 | NUR ---
Pt continues to lose wt, tube feeding not meeting assessed nutrition needs. Recommend increase nepro to 45ml/hr
--- NOTE | 2018-11-04 09:40 | NUR ---
DIALYSIS STARTED AT 0830, PT TOLERATING. FENTANYL IV GIVEN FOR PT COMFORT, ST WITH RARE PVC, RESPIRATION INTERMITTENTLY LABORED, ETT TUBE CUFF LEAK WITH TV'S FROM 109-900'S, MODERATE THICK WHITE SECRETIONS PER ETT. ROTATION ENABLED AND REPOSTIONING PT FOR COMFORT.
--- NOTE | 2018-11-04 15:03 | NUR ---
FAXED CLINICAL UPDATE TO [facility] LEMONS SPOKE WITH JOHN IN ADM SHE RECEIVED UPDATE. DCP TO FOLLOW.
--- NOTE | 2018-11-04 15:56 | NUR ---
WOUND CARE FOLLOW UP; THE WOUNDS TO THE LEFT ARM,LEFT HEEL ,RIGHT FOX, WERE ASSESSED AND THEY ARE STABLE AT THIS TIME. NO CHANGES NECCESSARY. DISCUSSED WITH YADIRA
--- NOTE | 2018-11-04 16:08 | NUR ---
SON PRESENT AND HE INQUIRED ON PT STATUS. UPDATED THAT DURING DIALYSIS THE MAJORITY OF THE FLUID WAS ABLE TO BE REMOVED, HOWEVER HIS BP WAS LOW AND THEY WERE UNABLE TO REMOVE ALL THE FLUID GOAL. UPDATED THAT PT CONTINUES TO BE RESTLESS DESPITE SEVERAL DOSES OF FENTANYL FOR COMFORT. SON VERBALIZED EXPECTATION, THAT PT WOULD "BE ABLE TO SWALLOW BY SUNDAY OR SUNDAY". SON ALSO VERBALIZED HE WOULD BE TALKING WITH DR. MANZO ON SUN OR TO DECIDE IF PT REQUIRES TRACH, THEN CONTINUED TO STATE, "I DON'T DEPEND ON THIS HERE, I DEPEND ON GOD. MY MOTHER WAS LIKE THIS AND SHE IS NOT LIKE THIS NOW."
--- NOTE | 2018-11-04 16:35 | NUR ---
CALL PLACED TO DR. BLOCK THROUGH ANSWERING SERVICE. ROSELIA TEJEDA, SON WANTS TO SPEAK WITH DR. BLOCK.
--- NOTE | 2018-11-04 18:30 | NUR ---
pt restless through most of shift though somewhat decrease after fentanyl administration. pt repositioned on left side, then dozed off to rest comfortably. st-105, tolerating tube feeding at 45cc/hr goal, aneuric.
[2018-11-05] VITALS (24 sets, daily range): BP systolic 105–158; BP diastolic 35–71
[2018-11-05 05:14] LABS: ALBUMIN 1.8 g/dL (3.4-5.0); CALCIUM 7.7 mg/dL (8.5-10.1); CREATININE 1.5 mg/dL (0.7-1.3); PHOSPHORUS 1.8 mg/dL (2.5-4.9); POTASSIUM 3.5 mmol/L (3.5-5.1)
--- NOTE | 2018-11-05 06:38 | NUR ---
RECEIVED REPORT FROM YADIRA GALE AND ASSUMED PATIENT CARE AT 1900. PATIENT IS GETTING MORE STRONGER AND IS USING HANDS A LOT MORE NOW. RESTRAINTS HAD TO BE PLACED BACK ON PATIENT FOR NEARLY EXTUBATING SELF. PATIENT STILL FOLLOWS COMMANDS AND IS VERY ALERT. VSS AND NO OTHER ACUTE EVENTS OCCURRED DURING THIS SHIFT. SON UPDATED ON PATIENT'S PROGRESS.
--- NOTE | 2018-11-05 08:17 | NUR ---
ASSESSMENT COMPLETED AT SHIFT CHANGE. SEE ASSESSMENT FOR DETAILS. PROGRESSING TOWARD TRACH PLACEMENT.
--- NOTE | 2018-11-05 12:36 | NUR ---
FRIDA reviewed chart. Pt to have trach placed on per surgery. Will need LTAC placement for vent weaning. SW requested attending physician to discuss LTAC placement with pt's son/DPOA, Daquan. SW is following to assist as needed with discharge planning.
--- NOTE | 2018-11-05 18:32 | NUR ---
SHIFT SUMMARY: PT INCREASINGLY ALERT THROUGH SHIFT, FOLLOWS COMMANDS WITH ALL EXTREMITES, MOVING LEGS UP AND DOWN IN BED TO COMMAND, SR, ON CPAP SINCE @ 1030 THIS AM, CONTINUING TO TOLERATE, SCANT SECRETIONS, LUNG SOUNDS IMPROVING, TOLERATING TUBE FEEDING, ANEURIC. SON INQUIRED BY PHONE TODAY, UPDATED ON PT STATUS. PT PROGESSING TOWARD EXTUBATION BASED ON HIS PROGRESS.
[2018-11-06] VITALS (37 sets, daily range): BP systolic 102–167; BP diastolic 48–78
--- NOTE | 2018-11-06 05:45 | NUR ---
RECEIVED REPORT FROM YADIRA GALE AND ASSUMED PATIENT CARE AT 1900. PATIENT REMAINED ON THE CPAP SETTINGS UNTIL 0030. PATIENT IS ALSO NOTED TO BE MUCH STRONGER THAN YESTERDAY. HE IS LIFTING HIS LEGS UP INTO THE AIR ON COMMAND AND SPONTANEOUSLY. HIS GRASPS BILATERALLY ARE ALSO MUCH STRONGER. HE IS ALSO NODDING HIS HEAD ON SOME QUESTIONS. PATIENT IS ALSO TOLERATING THE TUBE FEEDS AFTER THE GJ PLACEMENT WITH NO RESIDUALS. NO ACUTE EVENTS OCCURRED DURING THIS SHIFT AND VS REMAINED STABLE. HOURLY ROUNDING COMPLETED AND ASSESSMENTS CHARTED. SON UPDATED ON PATIENT'S STATUS. PATIENT IS PROGRESSING TOWARD GOAL.
[2018-11-06 05:59] LABS: ALBUMIN 1.7 g/dL (3.4-5.0); CALCIUM 7.9 mg/dL (8.5-10.1); CREATININE 1.8 mg/dL (0.7-1.3); PHOSPHORUS 3.6 mg/dL (2.5-4.9); POTASSIUM 3.8 mmol/L (3.5-5.1)
--- NOTE | 2018-11-06 09:28 | NUR ---
DENIES DISCOMFORT, NODDING YES AND NO, MOVING ALL EXTREMITIES INCLUDING LEONIDAS LOWER LEGS, SR, TOLERATING VENT, TOLERATING TUBE FEEDING, ANEURIC.
--- NOTE | 2018-11-06 10:31 | NUR ---
WOUND CARE FOLLOW UP; TODAY THE PATIENTS WOUNDS ARE DETERIORATING SINCE LAST ASSESSMENT. LEFT HEEL HAS STABLE ESCHAR. THE SACRUM IS HEALED. THE RIGHT HEEL DTI IS UNSTABLE. THE RIGHT LAT MALLEOLOUS IS UNSTABLE SKIN SOUMARCO ANTONIO REMY WOUND BED. THE RIGHT KNEE IS STABLE/UNCHANGED SINCE LAST ASSESSMENT. THE RIGHT HIGH ANKLE HAS UNSTABLE ESCHAR. RECOMMENDATIONS; 1-DR NAE ALVAREZ CONSULT ORDERED. 2-CONTINUE CURRENT PLAN FOR NOW RN PRESENT
--- NOTE | 2018-11-06 18:45 | NUR ---
SHIFT SUMMARY: CPAP TRIAL FOR 3 1/2 HOURS. TV'S LOWER TODAY- ONLY 300'S TO 500'S. REPLACED ON ASSIST CONTROL. DR. DODSON SPOKE AT LENGTH WITH ROSELIA NIKHIL-SON ON THE PHONE REGARDING TRACH PLACEMENT. DR. BLOCK SPOKE WITH ROSELIA ALSO REGARDING TRACH PLACEMENT. TRACH REMAINS SCHEDULED AT THIS TIME, ROSELIA IS AWARE HE MUST MAKE A FINAL DECISION REGARDING TRACH PLACEMENT TOMORROW. PT DROWSY TODAY ESPECIALLY AFTER DIALYSIS.
[2018-11-07] VITALS (58 sets, daily range): BP systolic 119–172; BP diastolic 48–84
--- NOTE | 2018-11-07 05:35 | NUR ---
RECEIVED REPORT FROM YADIRA GALE AND ASSUMED PATIENT CARE AT 1900. PATIENT REMAINS VENTILATED AT THIS TIME. PATIENT STILL FOLLOWS COMMANDS BUT IS NOT ALERT HE WAS THE PREVIOUS NIGHT. SON CALLED TO STATE HE DOES NOT WISH FOR HIS DAD TO GET THE TRACH TODAY AND THAT HE WANTS HIM TO BE EXTUBATED ON SUNDAY WITH FAMILY AT BEDSIDE. NOTIFIED DR. BLOCK, DR. DODSON, AND DR. MANZO OF FAMILY'S WISHES. PATIENT ALSO NOTED TO HAVE THE JEJUNAL PORT OF THE PEG TUBE CLOGGED. NOTIFIED DR. DODSON AND HE STATED TO LET COKE SIT IN THE TUBE FOR 1 HOUR AND TO CALL GI TO SEE IF THEY HAVE ANY OTHER RECOMMENDATIONS. SPOKE WITH DR. ZARATE AND ALSO NOTIFIED HER OF THE FAMILY'S WISHES. SHE DIDN'T RECOMMEND ANY THING AT THIS TIME BUT STATED HE MAY HAVE TO GO BACK TO IR TO GET ANOTHER PLACED. ADDITIONALLY, DR. ZARATE STATED TO NOT FLUSH CRUSHED MEDS THROUGH THE JEJUNAL PORT AND ONLY THE GASTRIC PORT. AT THIS TIME, TUBE FEEDS ARE ON HOLD SINCE HE IS UNABLE TO TOLERATE TUBE FEEDING INTO THE STOMACH. DR. DODSON IS AWARE.
[2018-11-07 11:32] LABS: BE(vivo) 5.1 mmol/L (-2 to +3); HCO3 29.7 mmol/L (22.0-26.0); PCO2 44.1 mmHg (35.0-45.0); PO2 108.7 mmHg (80.0-100.0); pH 7.446 (7.360-7.450); sO2 98.1 % (92.0-98.0)
--- NOTE | 2018-11-07 15:44 | NUR ---
per Rn plan extibate on Sunday when family avail. Casemgt following for dc planning. Possible LTAC or return to [facility].
[2018-11-08] VITALS (86 sets, daily range): BP systolic 60–158; BP diastolic 37–73
--- NOTE | 2018-11-08 05:48 | NUR ---
PATIENT ALERT TO SELF, ABLE TO NOD HEAD TO YES/NO QUESTIONS. FOLLOWS COMMANDS. ON VENTILATOR 30% FIO2. Q2H TURN. SKIN CLOSELY MONITORED. BLOOD SUGARS ASSESSED. PATIENT CURENTLY HAVE NO NUTRITION DUE TO CLOGGED J-TUBE, WILL BE REPLACED IN IR. SON UPDATED ON THE PLAN OF CARE. NO SIGNS OF ACUTE DITRESS NOTED AT THIS TIME. WILL CONTINUE TO MONITOR.
[2018-11-08 05:51] LABS: CALCIUM 8.1 mg/dL (8.5-10.1); CREATININE 1.6 mg/dL (0.7-1.3); PHOSPHORUS 3.1 mg/dL (2.5-4.9)
[2018-11-08 05:57] LABS: HEMATOCRIT 24.6 % (42.0-52.0); HEMOGLOBIN 8.1 gm/dL (14.0-18.0); MCH 29.7 pg (26.0-34.0); MCHC 32.8 g/dL (28.0-37.0); MCV 90.5 fL (80.0-100.0); RBC 2.72 mil/uL (4.50-6.00); RDW 18.1 % (10.5-14.5)
--- NOTE | 2018-11-08 16:36 | NUR ---
SW reviewed chart. No plans for trach placement at this time. Plan to extubate pt tomorrow, 11/09, when family is present. SW is following to assist as needed with discharge planning.
--- NOTE | 2018-11-08 16:53 | NUR ---
PT REMAINS ON THE VENT. AND DIALYSIS TODAY. FAMILY AT BEDISDE FOR SUPPORT. LUNGS ARE CLEAR TO DIMINISHED. VS STABLE. TURN Q 2 HOURS. CREAM TO WOUNDS TODAY. ABDOMEN IS SOFT AND FLAT NONDISTENDED. TOLERATING TUBE FEEDINGS WELL NO RESIDUAL NOTED. FAMILY IS PLANING TOMORROW TO REMOVE THE VENT. PER DPOA SON. WILL CONTINUE TO PROVIDED PT AND FAMILY ONGOING WISHES AND CARES WITH PLAN OF CARE OF PT. NO ISSUES OR CONCERNS NOTED AT THIS TIME .
[2018-11-09] VITALS (70 sets, daily range): BP systolic 70–135; BP diastolic 29–60
--- NOTE | 2018-11-09 05:34 | NUR ---
ASSUMED CARE OF PT. AT 1900. PT. IS DROWSY FROM DIALYSIS, BUT HAS SINCE WOKEN UP MORE. SOFT BLOOD PRESSURES THROUGHOUT NIGHT FROM DIALYSIS. 1L PULLED OFF 500 ML BLOUS GIVEN DURING DIALYSYS FOR SOFT BLOOD PRESSURE. NO NEW CHANGES. 1 SMALL BM. PLAN OF CARE IS TO CHANGE CODE STATUS AT 1300 AND WITHDRAW CARE AT THAT POINT IN TIME. ASSESSMENTS AND VITAL SIGNS CHARTED. WILL CONTINUE TO MONITOR.
[2018-11-09 05:57] LABS: CALCIUM 7.9 mg/dL (8.5-10.1); CREATININE 1.5 mg/dL (0.7-1.3); POTASSIUM 4.2 mmol/L (3.5-5.1)
--- NOTE | 2018-11-09 18:12 | NUR ---
End of shift note. Pt with NS bolus this am for hypotension with good results. Extubated per famiily wishes Daquan De La O and Jane. at 1405. Pt on 40% face shield and tolorating well. Pt follows some commands and is expressing his needs verbally. Tolorating tube feeding.
[2018-11-10] VITALS (20 sets, daily range): BP systolic 96–153; BP diastolic 37–81
--- NOTE | 2018-11-10 03:30 | NUR ---
ASSUMED CARE OF PT. AT 1900. PT. IS AWAKE AND ORIENTED TO SELF. HAS SLEPT MOST OF THE NIGHT. VITAL SIGNS REMAIN STABLE. PT. ON 2L O2 VIA NC. NEPRO RUNNING AT GOAL OF 45. ORAL CARE DONE EVERY 2 HOURS, PT. HAS NOT REQUESTED ICE CHIPS OR WATER. PT. DENIES PAIN, ANSWERS TO YES/NO QUESTIONS, AND CAN FOLLOW COMMANDS. ASSESSMENTS AND VITAL SIGNS CHARTED. WILL CONTINUE TO MONITOR.
[2018-11-10 05:26] LABS: HEMOGLOBIN 6.8 gm/dL (14.0-18.0); MCH 30.2 pg (26.0-34.0); RBC 2.25 mil/uL (4.50-6.00)
[2018-11-10 05:28] LABS: HEMATOCRIT 20.6 % (42.0-52.0); MCV 91.4 fL (80.0-100.0); RDW 18.5 % (10.5-14.5); WBC 7.8 thou/uL (4.0-11.0)
[2018-11-10 05:41] LABS: ALBUMIN 1.7 g/dL (3.4-5.0); CALCIUM 7.9 mg/dL (8.5-10.1); PHOSPHORUS 2.7 mg/dL (2.5-4.9); POTASSIUM 4.2 mmol/L (3.5-5.1)
--- NOTE | 2018-11-10 19:47 | NUR ---
pt tranferred from ICU at 1840pm, pt is cooperative, pt can follow commands, pt's vs are stable , pt has started tube feeding as order, RN will report to next shift.
[2018-11-11 00:05] VITALS: BP 159/72
[2018-11-11 04:58] VITALS: BP 159/72
--- NOTE | 2018-11-11 04:58 | NUR ---
PT SLEEPING ON AND OFF THRU THE NOC, TUBE FEEDING AT FULL STRENGTH, BG Q [address] ARTEAGA CALLED FOR BG 413 INCREASED TO VERY HIGH SS INSULIN, SEVERAL WNDS MOST HEALING AND LYNDSAY, VSS, RA WITH SAT 96%, PRN PAIN MED GIVEN FOR GENERLAIZED C/O PAIN TURNING Q 2 HOURS AND NEEDED, PT REQUESTED BED RAM FOR BM EARLIER IN THE SHIFT, SON CALLED AND UPDATED ON MOVE FROM ICU AND CONDITION, PLAN DIALYSIS THIS AM WITH 1 UPRBC, WILL CON'T TO MONITOR PER PPOC.
[2018-11-11 06:23] LABS: HEMATOCRIT 21.7 % (42.0-52.0); HEMOGLOBIN 7.1 gm/dL (14.0-18.0); MCH 30.1 pg (26.0-34.0); MCHC 32.8 g/dL (28.0-37.0); MCV 91.8 fL (80.0-100.0); RBC 2.36 mil/uL (4.50-6.00); WBC 8.1 thou/uL (4.0-11.0)
[2018-11-11 06:36] LABS: ALBUMIN 1.7 g/dL (3.4-5.0); CALCIUM 8.3 mg/dL (8.5-10.1); CREATININE 1.9 mg/dL (0.7-1.3); PHOSPHORUS 2.7 mg/dL (2.5-4.9)
[2018-11-11 07:58] VITALS: BP 138/56
--- NOTE | 2018-11-11 10:47 | NUR ---
DP SENT UPDATES TO [facility], [place] DATE UNKNOWN AT THIS TIME, DP SENT TEXT TO CARLEY AT [facility] TO LET HER KNOW.
--- NOTE | 2018-11-11 12:24 | NUR ---
SW reviewed chart and spoke with nursing. Pt was extubated on Sunday, 11/09. Pt tolerating O2 via NC. Pt receiving dialysis today. associate media planner to fax updates to [facility] for review. FRIDA is following to assist as needed with discharge planning.
[2018-11-11] MEDS ORDERED: PROCRIT20000 UNIT IV PUSH (14:05)
[2018-11-11] MEDS ORDERED: METOCLOPRAM5 MG/1 ML PER TUBE (14:19)
[2018-11-11] MEDS ORDERED: PREDNISONE 10 M10 MG PO (14:21)
[2018-11-11] MEDS ORDERED: NOVOLOG100 UNIT/1 SUBQ (14:23)
[2018-11-11] MEDS ORDERED: LEVOTHYROXINE100 MC1 PER TUBE (14:24)
[2018-11-11 16:28] VITALS: BP 155/73
[2018-11-11 17:45] VITALS: BP 161/78; BP 172/82
[2018-11-11 19:10] VITALS: BP 163/83
--- NOTE | 2018-11-11 19:51 | NUR ---
ASSUMED PATIENT CARE AT 0700. A/O 2-3. CONFUSED . TOLERATED ON HD. RECEIVED ONE UNIT BBC. NO REACTION NOTED. THREE LOOSE STOOL. PROGRESSING TOWARDS POC GOALS.
[2018-11-12 03:53] VITALS: BP 156/84
--- NOTE | 2018-11-12 04:33 | NUR ---
PATIENT IS PROGRESSING SLOWLY IN HIS CARE PLAN. VITAL SIGNS STABLE WITH PATIENT NOT STATING, NOR NURSE PERCEIVING, ANY PAIN OR NAUSEA. PATIENT ORIENTED TO SELF AND PLACE AND MOSTLY CONFUSED TO CURRENT SITUATION. BREATHING STABLE ON ROOM AIR EVIDENCED BY SPOT OXYGENATION CHECKS. PATIENT HAS HAD MULTIPLE EPISODES OF FECAL INCONTINENCE WITH STAFF PROVIDING SKIN CARE AND FREQUENT TURNS. TUBE FEED AND WOUND CARE PROVIDED PER ORDER. PATIENT IS A POTENTIAL DISCHARGE TODAY. CONTINUE PLAN OF CARE.
[2018-11-12 05:27] LABS: HEMATOCRIT 28.1 % (42.0-52.0); MCHC 33.2 g/dL (28.0-37.0); MCV 90.2 fL (80.0-100.0); RBC 3.12 mil/uL (4.50-6.00); RDW 16.6 % (10.5-14.5); WBC 8.3 thou/uL (4.0-11.0)
[2018-11-12 05:31] LABS: HEMOGLOBIN 9.3 gm/dL (14.0-18.0)
[2018-11-12 07:19] VITALS: BP 179/73
--- NOTE | 2018-11-12 10:54 | NUR ---
DP called other facilities that received a referral to let them know patient was accepted by another facility and approved.
--- NOTE | 2018-11-12 10:57 | NUR ---
Chart copy ordered from Katie Orozcow. [facility] will accept patient, patient to dc today, doctor must first finalize orders. NAYAN called Armen at [facility] to let her know.
--- NOTE | 2018-11-12 13:15 | NUR ---
DISCHARGE NOTE: SW reviewed chart and spoke with nursing and attending physician. Pt is medically stable for discharge to [facility] today. FRIDA spoke with Sara at [facility] regarding pt's new dialysis. Pt to be scheduled to start outpt dialysis at [facility] tomorrow. network planner to coordinate and notify pt's family. Chart copy requested. No additional SW needs identified at this time, but is available to assist should needs arise.
--- NOTE | 2018-11-12 13:28 | NUR ---
pt's assessment has done, pt knows his name and his birthday,pt can follow some commands, but pt is confused sometimes, pt is tolerate tube feeding 45ml/h, pt's vs and o2sat are stable at this time, pt needs help ADL and turn ,pt denies pain .n/v and sob at this time.RN has received dr rosenthal, pt will d/c to [place] today.
--- NOTE | 2018-11-12 16:56 | NUR ---
pt d/c to [place] by ambulance at 1415pm, RN has giving report and pt's son has notified pt d/c .
== END 2018-11-12 16:20 | DRG 870 ==
LOC: ER 16:15 → EROBS 18:18 → 3W 18:18 → ICU 10-22 02:31 → 3W 11-10 17:43
PROVIDERS: Hospitalist; Internal Medicine; Internal Medicine Gastroenterology; Internal Medicine Nephrology; Internal Medicine Pulmonary Disease; Pediatrics; Physician Assistant; Specialist; ADMIT Internal Medicine
PROC: 0BH17EZ Insertion of Endotracheal Airway into Trachea, Via Natural or Artificial Opening (ICD-10-PCS; principal; 2018-10-22)
PROC: 02HV33Z Insertion of Infusion Device into Superior Vena Cava, Percutaneous Approach (ICD-10-PCS; principal; 2018-10-22)
PROC: 5A1955Z Respiratory Ventilation, Greater than 96 Consecutive Hours (ICD-10-PCS; principal; 2018-10-22)
PROC: 5A12012 Performance of Cardiac Output, Single, Manual (ICD-10-PCS; principal; 2018-10-22)
PROC: 0DHA3UZ Insertion of Feeding Device into Jejunum, Percutaneous Approach (ICD-10-PCS; 2018-10-29)
PROC: 0DP6XUZ Removal of Feeding Device from Stomach, External Approach (ICD-10-PCS; 2018-10-29)
PROC: 4B02XSZ Measurement of Cardiac Pacemaker, External Approach (ICD-10-PCS; 2018-10-30)
PROC: 30233N1 Transfusion of Nonautologous Red Blood Cells into Peripheral Vein, Percutaneous Approach (ICD-10-PCS; 2018-10-30)
PROC: 0W3P8ZZ Control Bleeding in Gastrointestinal Tract, Via Natural or Artificial Opening Endoscopic (ICD-10-PCS; 2018-10-31)
DX: A41.9 Sepsis, unspecified organism (principal); J69.0 Pneumonitis due to inhalation of food and vomit; I21.4 Non-ST elevation (NSTEMI) myocardial infarction; G92 Toxic encephalopathy; I46.9 Cardiac arrest, cause unspecified; J96.02 Acute respiratory failure with hypercapnia; J96.01 Acute respiratory failure with hypoxia; N17.0 Acute kidney failure with tubular necrosis; E43 Unspecified severe protein-calorie malnutrition; K57.31 Diverticulosis of large intestine without perforation or abscess with bleeding; Z94.0 Kidney transplant status; N39.0 Urinary tract infection, site not specified; I82.611 Acute embolism and thrombosis of superficial veins of right upper extremity; I44.2 Atrioventricular block, complete; I45.3 Trifascicular block; I50.32 Chronic diastolic (congestive) heart failure; D62 Acute posthemorrhagic anemia; G72.81 Critical illness myopathy; E78.5 Hyperlipidemia, unspecified; I11.0 Hypertensive heart disease with heart failure; K21.9 Gastro-esophageal reflux disease without esophagitis; E83.39 Other disorders of phosphorus metabolism; L89.620 Pressure ulcer of left heel, unstageable; I87.2 Venous insufficiency (chronic) (peripheral); E03.9 Hypothyroidism, unspecified; I25.10 Atherosclerotic heart disease of native coronary artery without angina pectoris; E86.0 Dehydration; G93.9 Disorder of brain, unspecified; H54.8 Legal blindness, as defined in USA; R65.20 Severe sepsis without septic shock; R13.12 Dysphagia, oropharyngeal phase; E11.43 Type 2 diabetes mellitus with diabetic autonomic (poly)neuropathy; K31.84 Gastroparesis; Z68.25 Body mass index [BMI] 25.0-25.9, adult; I25.2 Old myocardial infarction; Z95.5 Presence of coronary angioplasty implant and graft; Z86.711 Personal history of pulmonary embolism; Z95.1 Presence of aortocoronary bypass graft; Z95.810 Presence of automatic (implantable) cardiac defibrillator; Z79.4 Long term (current) use of insulin; Z79.82 Long term (current) use of aspirin; Z79.899 Other long term (current) drug therapy; Z88.0 Allergy status to penicillin
CPT/HCPCS: 10078; 10879; 32100; 85076

== ENCOUNTER 2018-12-11 17:14 | Inpatient (IN) | payer OTHER ==
[~2018-12-11] VITALS: Ht 167.6 cm; Wt 70.9 kg
[2018-12-11] VITALS (7 sets, daily range): BP systolic 146–184; BP diastolic 77–97
[~2018-12-11 17:14] MED LIST changes: +CELLCEPT500 MG PER TUBE; -CELLCEPT500 MG PO; +LEVOTHYROXINE100 MC1 PER TUBE; +LOPRESSOR50 PER TUBE; -LOPRESSOR50 PO; +METOCLOPRAM5 MG/1 ML PER TUBE; +PROCRIT20000 UNIT IV PUSH; +TACROLIMUS1 MG PER TUBE; -TACROLIMUS1 MG PO; +TYLENOL325 MG PER TUBE; -TYLENOL325 MG PO; +VITAMINC500 PER TUBE; -VITAMINC500 PO
[2018-12-11 17:48] LABS: ABSOLUTE NEUTROPHILS 9.1 thou/uL (1.4-8.2); BASOPHILS 0.7 % (0.0-2.0); EOSINOPHILS 2.5 % (0.0-3.0); HEMATOCRIT 26.9 % (42.0-52.0); HEMOGLOBIN 8.5 gm/dL (14.0-18.0); LYMPHOCYTES 11.3 % (24.0-44.0); MCH 28.7 pg (26.0-34.0); MCHC 31.6 g/dL (28.0-37.0); MCV 90.8 fL (80.0-100.0); MONOCYTES 9.7 % (1.0-8.0); PLATELET COUNT 248 thou/uL (150-400); POLYS 75.8 % (36.0-66.0); RBC 2.97 mil/uL (4.50-6.00); RDW 16.6 % (10.5-14.5)
[2018-12-11 18:01] LABS: CALCIUM 9.3 mg/dL (8.5-10.1); CREATININE 2.5 mg/dL (0.7-1.3); POTASSIUM 3.3 mmol/L (3.5-5.1)
[2018-12-11 18:03] LABS: PROTIME 10.4 Seconds (9.3-11.4)
[2018-12-11 18:15] LABS: ALBUMIN 1.7 g/dL (3.4-5.0); TOTAL BILIRUBIN 0.2 mg/dL (<0.1-1.0); TOTAL PROTEIN 5.8 g/dL (6.4-8.2)
[2018-12-11] MEDS ORDERED: CYMBALTA20 MG PER TUBE (18:41)
[2018-12-11] MEDS ORDERED: LIPITOR40 MG PER TUBE (18:41)
[2018-12-11] MEDS ORDERED: PREDNISONE 20 M20 MG PER TUBE (18:43)
[2018-12-11] MEDS ORDERED: TORSEMIDE20 MG PER TUBE (18:44)
[2018-12-11] MEDS ORDERED: LANTUS100 UNIT/M SUBQ (18:51)
[2018-12-11] MEDS ORDERED: BETADINE30 ML TOP (23:18)
--- NOTE | 2018-12-11 23:21 | NUR ---
ADMIT: Pt arrived to room 239 from ED at 2049. Pt oriented to self, calm, cooperative, mildly lethargic but arouses easily. Pt legally blind by history. Monitor sinus rhythm, hx of permanent pacemaker. Pt hypertensive, but this is normal per pt history. Left lower arm fistula patent. Right hand IV #20 patent. Pressure ulcers on bilateral heels and right outer ankle; pictures taken. Pt on O2 at 3 L, sat 100%. G-J tube patent and clamped. Dr. Montenegro notified on admission and orders recieved. Dr. Catherine here at 0; orders received.
--- NOTE | 2018-12-11 23:35 | NUR ---
Pt incontinent of large amount of urine; bladder scan shows 130 cc residual. Mathews cath placed for accurate I&O.
[2018-12-12] VITALS (24 sets, daily range): BP systolic 121–182; BP diastolic 52–97
[2018-12-12 05:42] LABS: ALBUMIN 1.7 g/dL (3.4-5.0); CREATININE 2.2 mg/dL (0.7-1.3); PHOSPHORUS 3.2 mg/dL (2.5-4.9); POTASSIUM 3.4 mmol/L (3.5-5.1)
--- NOTE | 2018-12-12 07:20 | EKG ---
[place] [address] [facility] [employer] [id number] ELECTROCARDIOGRAM REPORT Name: ROCKY TEJEDA Room #: 239-P ADM IN M.R.#: [id number] Admission: 12/11/18 Attend Phys: Israel Catherine MD Discharge: Date of : 44 Report #: [id number] THIS REPORT FOR: //name// [facility] ED Test Date: 2018-12-11 Test Time: 17:45:53 Pat Name: ROCKY TEJEDA Department: Room: 239 Gender: M Civil Design Specialist: : 1940 Requested By: Rosalie Kee Order Number: [id number] MD: Kavon Koch Measurements Intervals [place] Rate: 94 P: 80 [place]: 199 QRS: -92 QRSD: 131 T: 70 QT: 415 QTc: 520 Interpretive Statements Sinus rhythm RBBB and LAFB Compared to ECG 10/30/2018 14:32:07 Ventricular premature complex(es) no longer present Electronically Signed On 12-12-2018 7:20:21 CDT by Kavon Koch [email or web address] <ELECTRONICALLY SIGNED> By: Kavon Koch MD, [facility] 12/12/18719 1745 [id number] Kavon Kcoh MD, [facility] /EPI
--- NOTE | 2018-12-12 10:17 | NUR ---
Nutrition: If able to unclog J port REC resume Nepro formula to run at 50 mL/hr x 24 hrs. Suggest 250 mL H20 flush TID with beneprotein powder packets to support wound healing needs if possible.
[2018-12-12 10:43] LABS: URINE BILIRUBIN NEGATIVE (Negative); URINE BLOOD 3+ (Negative); URINE CLARITY CLOUDY; URINE COLOR YELLOW; URINE GLUCOSE-RANDOM* 1+ (Negative); URINE KETONES NEGATIVE (Negative); URINE NITRITE-REFLEX NEGATIVE (Negative); URINE PROTEIN (DIPSTICK) 3+ (Negative); URINE UROBILINOGEN 0.2 E.U./dl (0.2-1.0)
[2018-12-12 10:48] LABS: URINE LEUKOCYTES-REFLEX 3+ (Negative)
[2018-12-12 10:55] LABS: YEAST-REFLEX Present (None Seen)
[2018-12-12 10:56] LABS: AMORPHOUS URATES Moderate /LPF (None Seen); CASTS None Seen /LPF (None Seen); SQUAMOUS None Seen /LPF (0-3); URINE WBC-REFLEX >25 Many /HPF (0-5); WBC CLUMPS Few (None Seen)
--- NOTE | 2018-12-12 11:18 | NUR ---
WOUND CONSULT; THIS IS A KNOW PATIENT TO ME/RE; PREVIOUS ADMISSIONS. WOUNDS IDENTIFIED TO THE BILATERAL HEELS, RIGHT LAT ANKLE AND RIGHT LAT FOX. ALL ARE COVERED WITH STABLE ESCHAR. RECOMMENDATIONS; KEEP THE ESCHAR STABLE WITH BETAIDINE DAILY/LEAVE LYNDSAY CONTINUE WITH OFFLOADING BOOTS. DISCUSSED WITH ALESSANDRO NESS THE DECISION WAS MADE NOT TO CONSULT THE WOUND CARE DOCTORS UNLESS THE WOUNDS BECOME UNSTABLE OR OTHER NEEDS ARISE. RN PRESENT
--- NOTE | 2018-12-12 16:23 | NUR ---
PT RESIDES AT [facility] FAXED CLINICAL UPDATE TO FACILITY AND RECEIVED CONFIRMATION. DCP TO FOLLOW.
--- NOTE | 2018-12-12 16:56 | NUR ---
Case opened to follow for dc planning. 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 The pt is well known to from multiple admissions over the past few months. Both the pt and his live at the longterm. Pt's son Daquan is the primary contact. [facility]. Dc c4 planner to fax his admission h/p for their review. The pt is alert today and visiting with several family members at bedside. He has been dialyzing at onsite at [facility] ([facility]). Will follow along and assist with his return to the nursing when medically stable.
--- NOTE | 2018-12-12 18:39 | NUR ---
PT ORIENTED TO PERSON. PT FOLLOWS COMMANDS. PT'S J TUBE CLOGGED. GATAPIA WAS NOTIFIED. SODIUM BICARB WAS USED AND DID NOT WORK. PT CONSULTED FOR IR. IR CALLED TODAY. INTERVENTIONSIST NOT AVAILABLE FOR PROCEDURE. REPLACEMENT OF G/J TUBE SCHEDULED FOR TOMORROW. CONSENT SIGNED BY SON AND IS IN CHART.
[2018-12-13] VITALS (23 sets, daily range): BP systolic 110–188; BP diastolic 52–136
[2018-12-13 06:09] LABS: ALBUMIN 1.9 g/dL (3.4-5.0); CALCIUM 8.9 mg/dL (8.5-10.1); CREATININE 1.9 mg/dL (0.7-1.3); PHOSPHORUS 4.2 mg/dL (2.5-4.9); POTASSIUM 4.4 mmol/L (3.5-5.1)
--- NOTE | 2018-12-13 08:35 | HC ---
[facility] [place] [place] [address] CONSULTATION Name: ROCKY TEJEDA Room #: 239-P [facility] IN .R.#: [id number] Admission: 12/11/18 Attend Phys: Israel Catherine MD Discharge: Date of : 44 Report #: [id number] THIS REPORT FOR: //name// CC: Israel Montenegro REASON FOR CONSULTATION: Mental status changes. REASON FOR PRESENTATION: Mental status changes. HISTORY OF PRESENT ILLNESS: A well-known patient to me. He has an end-stage renal disease, hypertension patient with repeated hospitalization. He has had numerous episodes of acute kidney injury requiring hemodialysis. He is known to have renal transplant, maintained on triple immunosuppressive medications. He is also known to have some cerebellar hematoma. We were able to get him back to his baseline when it comes to his kidney function and his creatinine has leveled around 1.3. Unfortunately, the patient has had repeated hospitalizations with acute kidney injuries and electrolyte issues likely related to his current comorbid conditions, poor oral intake. Labs on 12/04/2018 revealed that his BUN was 54 and creatinine was 1.3. The patient had a BUN of 119 and creatinine of 2.5 yesterday and was transferred for further evaluation and management. Family had been very resistant to hospice and palliative care in the past. MEDICATIONS: 1. Calcitriol. 2. Tacrolimus. 3. Atorvastatin. 4. Prednisone. ALLERGIES: PENICILLIN. PAST MEDICAL HISTORY: 1. Renal transplant. 2. Diabetes mellitus. 3. Hypertension. 4. Coronary artery disease. 5. Multiple episodes of acute kidney injury requiring dialysis. 6. Multiple episodes of cardiac arrest requiring intubation. 7. Massive GI bleed, life threatening. 8. Cerebellar hematoma. REVIEW OF SYSTEMS: Unobtainable given the patient's mental status. SOCIAL HISTORY: Resides in a nursing facility. PHYSICAL EXAMINATION: GENERAL: The patient is confused. [facility] [address] [place] [address] CONSULTATION Name: ROCKY TEJEDA Room #: 239-P [facility] IN [facility]#: [id number] Admission: 12/11/18 Attend Phys: Israel Catherine MD Discharge: Date of : 44 Report #: [id number] VITAL SIGNS: Blood pressure is elevated at 182/80, pulse rate is 109. HEAD AND NECK: Dry mucous membrane. CHEST: Decreased air entry bilaterally. No crackles present. CARDIOVASCULAR: No rub detected. ABDOMEN: PEG tube present. LOWER EXTREMITIES: No edema. LABORATORY DATA: Laboratory values reviewed. White blood cell count is elevated at 12,000. Sodium is 149, potassium is 3.4, BUN is 112, creatinine is 2.2. Urine is pending. Microbiological studies are pending. ASSESSMENT, IMPRESSION AND PLAN: 1. Acute kidney injury. 2. Dehydration. 3. Chronic kidney disease. 4. Status post renal transplant. 5. Repeated episodes of cardiac arrest. 6. Repeated episodes of acute kidney injury requiring hemodialysis. 7. Failure to thrive. 8. Multiple other comorbid conditions. 9. Repeated unfortunate hospitalizations due to repeated episodes of dehydration and acute kidney injury. 10. Start on IV fluid. 11. Resume his immunosuppressive medications. 12. Continue to address his other comorbid conditions by the primary team including his diabetes mellitus, hypertension, leukocytosis. 13. Resume PEG tube feeding. 14. I still believe that we should pursue palliative and hospice care arrangement giving the repeated hospitalizations, repeated episodes of acute kidney injury requiring dialysis, his overall frail and deteriorating condition. <ELECTRONICALLY SIGNED> By: Radha Gillespie MD 12/13/18 [id number] Radha Gillespie MD /nt
[2018-12-13] MEDS ORDERED: SYNTHROID25 MC1 PER TUBE (12:11)
--- NOTE | 2018-12-13 18:30 | NUR ---
PT RECEIVED IN TRANSFER FROM ICU PER BED AWAKE AND STABLE. AGREE W/ PREVIOUS AM ASSESSMENT. PT HAS BECOME MORE ALERT AND TALKING SOME IN THE LAST HOUR. STILL CONFUSED. NEPHRO TF RESTARTED AT 55MLS PER HOUR TO J-TUBE. IV FLUIDS CHANGED PER ORDER. PT TURNED Q2HRS. RESTING COMFORTABLY.
--- NOTE | 2018-12-13 19:20 | NUR ---
PATIENT TRANSFERRED TO 419 PER BED WITH O2 AFTER REPORT GIVEN TO STEPHEN MAY AT 1205.
[2018-12-14 03:47] VITALS: BP 146/67
[2018-12-14 06:06] LABS: ALBUMIN 1.5 g/dL (3.4-5.0); CALCIUM 7.4 mg/dL (8.5-10.1); CREATININE 1.6 mg/dL (0.7-1.3); PHOSPHORUS 3.3 mg/dL (2.5-4.9)
[2018-12-14 06:10] LABS: POTASSIUM 3.1 mmol/L (3.5-5.1)
[2018-12-14 07:20] VITALS: BP 157/77
--- NOTE | 2018-12-14 15:20 | NUR ---
PT ALERT, VSS, NO APPARENT PAIN. WOUND ON BILAT HEALS ECHAR, SCDS AND BOOTS ON. PT BREATHING EASY, NO SIGNS OF DISTRESS. MEDIATION GIVEN ORDERED. PT TUNRED ON SIDE THIS SHIFT AND HAD BATH. VARGAS IN PLACE, GJ TUBE RUNNING CONTINUOUSLY, NEPRO 1.8 AT 55ML/HR. SKIN AROUND GJ TUBE NO REDNESS, NO DRAINAGE, INTACT. WILL CONTINUE TO MONITOR.
[2018-12-14 17:00] VITALS: BP 134/51
[2018-12-14 19:38] VITALS: BP 143/43
[2018-12-15 02:55] VITALS: BP 151/55
[2018-12-15 04:02] LABS: HEMATOCRIT 25.3 % (42.0-52.0); HEMOGLOBIN 8.1 gm/dL (14.0-18.0); MCH 28.6 pg (26.0-34.0); MCHC 31.9 g/dL (28.0-37.0); MCV 89.7 fL (80.0-100.0); RBC 2.83 mil/uL (4.50-6.00); RDW 16.6 % (10.5-14.5); WBC 16.5 thou/uL (4.0-11.0)
[2018-12-15 04:21] LABS: ALBUMIN 1.7 g/dL (3.4-5.0); CALCIUM 8.3 mg/dL (8.5-10.1); CREATININE 1.8 mg/dL (0.7-1.3); PHOSPHORUS 3.4 mg/dL (2.5-4.9); POTASSIUM 3.7 mmol/L (3.5-5.1)
[2018-12-15 07:55] VITALS: BP 152/75
--- NOTE | 2018-12-15 12:29 | HC ---
[facility] [place] [address] CONSULTATION Name: ROCKY TEJEDA Room #: 419-P [facility] IN .R.#: [id number] Admission: 12/11/18 Attend Phys: Israel Catherine MD Discharge: Date of : 42 Report #: [id number] THIS REPORT FOR: //name// CC: Israel Catherine Yung [place] DATE OF SERVICE: 12/12/2018 INFECTIOUS DISEASES CONSULTATION REASON FOR CONSULTATION: Evaluate sepsis in the setting of renal transplantation with suspected aspiration pneumonia and urinary tract infection. HISTORY OF PRESENT ILLNESS: The patient is a 78-year-old retirement resident with underlying diabetes, gastroparesis, end-stage renal disease requiring renal transplantation on 3-drug immunosuppression. He has been in and out of the hospital several times with advanced complications including stroke, aspiration pneumonia, rectal hemorrhage. Over the last 24 hours, he has had general weakness, nonproductive cough with increasing BUN up to 119 and creatinine 2.5. He has become more somnolent. No chest pain. No hemoptysis. No nausea, vomiting or diarrhea. He has a J-PEG tube in place with the J-tube now being clogged. He has had reasonable urine output. REVIEW OF SYSTEMS: A 10-point review of systems was negative other than what is described above. ALLERGIES: PENICILLIN, although tolerates cephalosporins. MEDICATIONS: As noted on his MAR, having been started on vancomycin and meropenem. He continues with calcitriol, mycophenolate, tacrolimus. Now off prednisone, Tylenol, vitamin C, Lipitor, Cymbalta, Lantus insulin, Lopressor, ipratropium, albuterol. PAST MEDICAL AND SURGICAL HISTORY: Renal transplantation 2000, diabetes, hypertension, LASIK surgery, AV fistula left arm, hyperlipidemia, [place], legally blind, permanent pacemaker, complete heart block, cerebellar mass, G-J tube, respiratory failure, recently on hemodialysis. FAMILY HISTORY: Noncontributory. SOCIAL HISTORY: Nonsmoker, no significant alcohol intake. PHYSICAL EXAMINATION: VITAL SIGNS: Temperature 97.9, pulse 105, respiratory rate 19, blood pressure 168/74, on 3 liters of oxygen per nasal cannula. GENERAL: The patient was arousable and able to follow commands. [facility] [address] [place] [address] CONSULTATION Name: ROCKY TEJEDA Room #: 419-P [facility] IN M.R.#: [id number] Admission: 12/11/18 Attend Phys: Israel Catherine MD Discharge: Date of : 42 Report #: [id number] SKIN: Without rash or decubitus. No palpable adenopathy. HEENT: Eyes without scleral icterus. He was blind in the right eye and decreased vision in the left. Mouth without mucositis. NECK: Supple, with no thyromegaly or mass. LUNGS: Right posterior crackles. HEART: Regular, without murmur, gallop or rub. ABDOMEN: Soft, nontender, no hepatosplenomegaly or mass appreciated. Right lower quadrant renal graft was nontender. PEG tube was in place, which was nontender. No surrounding erythema. EXTREMITIES: Without clubbing, cyanosis or edema. Able to move upper and lower extremities, symmetric. Mood sedate. BACK: Nontender. LABORATORY STUDIES: Sodium 149, potassium 3.4, bicarbonate 36, creatinine 2.2. Liver function tests normal. BNP 2591. Lactate 1.1. Hemoglobin 8.5, platelet count 248,000, white count 12. Urinalysis, many wbc's, rbc's and bacteria. Blood cultures are pending. Urine culture pending. CT of the head, no acute changes. Chest x-ray, right basilar infiltrate. IMPRESSION: A 78-year-old renal transplant patient with underlying diabetes, cardiomyopathy, presents with change in mental status, leukocytosis, anemia, acute on chronic renal injury, healthcare-associated aspiration right lower lobe pneumonia, urinary tract infection, J-tube blockage, delirium. RECOMMENDATIONS: We will continue ICU support with broad antibiotic coverage while awaiting cultures. Nephrology to assist in his fluid management. Obtain serial chest x-rays. I had discussed the case with nursing in attendance. Continue with aspiration precautions. IV fluids until able to open up the J-tube. <ELECTRONICALLY SIGNED> By: Serge Teran MD 12/15/18 [id number] Serge Teran MD /nt
--- NOTE | 2018-12-15 18:38 | NUR ---
PT A&OX SELF, IV INTACT IN R HAND INTACT. PEG TUBE INFUSING NEPRO @ 55/HR. PROFO BOOTS TO BILAT HEELS. PT IS BILAT. BLIND. FISTULA NOTED TO L FA. BED ALARM ON, CALL LIGHT W/I REACH. WILL CONT POC.
[2018-12-15 19:06] VITALS: BP 148/78
--- NOTE | 2018-12-16 03:37 | NUR ---
PATIENT ALERT AND ORIENTED X2. COOPERATIVE WITH CARE, HOWEVER, HE WILL PULL ON HIS LINES AT TIMES. TF INFUSING AT THIS TIME - THIS NURSE UNCLOGGED LINE WITH SODIUM BICARB DURING THE NIGHT. VARGAS TO D/D WITH ALEX URINE. FLUSHES AND BLOOD SUGARS DONE EVERY SIX HOURS PER ORDER. RESTING QUIETLY. WILL MONITOR.
[2018-12-16 04:03] VITALS: BP 151/72
[2018-12-16 06:31] LABS: ALBUMIN 1.8 g/dL (3.4-5.0); CALCIUM 8.4 mg/dL (8.5-10.1); CREATININE 1.7 mg/dL (0.7-1.3); PHOSPHORUS 3.6 mg/dL (2.5-4.9); POTASSIUM 3.8 mmol/L (3.5-5.1)
[2018-12-16 07:30] VITALS: BP 151/69
--- NOTE | 2018-12-16 10:57 | NUR ---
PT RESTING IN BED. HEAD OF BED UP 60 DEGREE'S. HAS TUBE FEEDING INFUSING AT 55 HR. MEDS GIVE THROUGH TUBE. HAS VARGAS CATH IS INCONT OF BM. PEG TUBE CHECKED VIA A/A NO RESIDUAL MEDS GIVEN 1 AT A TIME. PT HAS PACEMAKER. PT W/O PAIN OR RESP DISTRESS.
--- NOTE | 2018-12-16 13:12 | NUR ---
WOUND CARE AND THIS NURSE AT THIS TIME DID TREATMENT TO LEONIDAS LE'S/HEELS.
--- NOTE | 2018-12-16 13:37 | NUR ---
WOUND CARE F/U; MOST OF THE LE WOUNDS ARE STABLE ESCHAR EXCEPT THE RIGHT LAT LLE PROXIMAL WOUND. IT IS DRAINING AT THIS TIME, A SMALL AMOUNT OF SEROSANGINOUS DRAINAGE. RECOMMENDATION; CONT CURRRENT BUT ADD A FOAM DRESSING TO THE LLE PROXIMAL AREA CHANGE M/W/F/PRN. RN PRESENT
[2018-12-16 15:00] VITALS: BP 139/78
[2018-12-16 19:41] VITALS: BP 157/64
--- NOTE | 2018-12-17 04:04 | NUR ---
ASSUMED CARE OF PT @1900 PT ASSESSED AT START OF SHIFTA&O TO SELF. DENIES PAIN. KEL D/C IN PREVIOUS SHIFT PT INCONTINENT OF BOWEL AND BLADDER. PEG TUBE INTACT AND INFUSING AT 55/HR. ON Q6 SLIDING SCALE AND Q6 400ML OF H20 GIVEN. PRESSURE BOOT ON BLE. FISTULA IN LFT FOREARM. MEDS CRUSHED AND GIVEN VIA GTUBE. FALL PREC IN PLACE AND HOURLY ROUNDING DONE WILL CONT WITH POC TILL EOS.
[2018-12-17 05:18] VITALS: BP 159/72
[2018-12-17 06:15] LABS: ABSOLUTE NEUTROPHILS 9.5 thou/uL (1.4-8.2); BASOPHILS 0.1 % (0.0-2.0); EOSINOPHILS 1.9 % (0.0-3.0); HEMOGLOBIN 9.1 gm/dL (14.0-18.0); LYMPHOCYTES 10.7 % (24.0-44.0); MCHC 33.5 g/dL (28.0-37.0); MCV 89.6 fL (80.0-100.0); MONOCYTES 6.5 % (1.0-8.0); PLATELET COUNT 221 thou/uL (150-400); POLYS 80.8 % (36.0-66.0); RBC 3.02 mil/uL (4.50-6.00); RDW 16.9 % (10.5-14.5); WBC 11.8 thou/uL (4.0-11.0)
[2018-12-17 06:34] LABS: ALBUMIN 1.7 g/dL (3.4-5.0); CALCIUM 8.1 mg/dL (8.5-10.1); CREATININE 1.5 mg/dL (0.7-1.3); PHOSPHORUS 3.5 mg/dL (2.5-4.9); POTASSIUM 3.6 mmol/L (3.5-5.1)
[2018-12-17 07:45] VITALS: BP 149/49
--- NOTE | 2018-12-17 10:21 | NUR ---
PT RESTING IN BED HOB UP 30-60 DEGREE'S. AM MEDS GIVEN PER G-TUBE. HAS NEPRO 1.8 INFUSING ORDERED. BED BATH AND BED CHANGE DONE. NO PAIN OR RESP DISTRESS NOTED
[2018-12-17 16:00] VITALS: BP 168/53
--- NOTE | 2018-12-17 16:27 | NUR ---
PHYSICAIN INDICATED THAT PT MAY BE MEDICALLY STABLE TO DC BACK TO [facility] TOMORROW LONG HIS HIS BUN CONTINUES TO TREND DOWN. CM TO FOLLOW INDICATED WITH DC PLANNING.
[2018-12-17 19:16] VITALS: BP 168/80
--- NOTE | 2018-12-18 02:42 | NUR ---
ASSUMED CARE OF PT @1900 PT ASSESSED AT START OF SHIFT A&O X1 TO SELF ON BEDREST AND INCONTINENT OF BOWEL AND BLADDER. PEG TUBE INFUSING AT 55/HR Q6 BLOOD SUGAR CHECKS AND INSULIN ADMINISTERED. ADMINISTERED 200ML OF H2O Q4HRS VIA TUBE. FALL PREC IN PLACE AND WILL CONT WITH POC TILL EOS.
[2018-12-18 03:44] VITALS: BP 150/73
[2018-12-18 06:44] LABS: ALBUMIN 1.7 g/dL (3.4-5.0); CREATININE 1.4 mg/dL (0.7-1.3); PHOSPHORUS 3.6 mg/dL (2.5-4.9); POTASSIUM 3.7 mmol/L (3.5-5.1)
[2018-12-18 07:45] VITALS: BP 143/55
[2018-12-18] MEDS ORDERED: DOXYCYCLINE HYC50 MG PO (09:51)
[2018-12-18] MEDS ORDERED: NORVASC5 MG PER TUBE (09:52)
[2018-12-18] MEDS ORDERED: LANTUS SUBQ (09:53)
[2018-12-18] MEDS ORDERED: PREDNISONE 10 M10 MG PO (09:54)
--- NOTE | 2018-12-18 11:26 | NUR ---
WOUND CARE FOLLOW UP; THE ESCHAR WAS PREVIOUSLY STABLE IS NOW UNSTABLE AND DRAINING. NO OTHER S/S TO REPORT. RECOMMENDATIONS; 1-CONSULT DR SOLITARIO SEXTON PER T/O DR SANTANA 2- ADD FOAM DRESSINGS CHANGE DAILY. 3-CONTINUE BETADINE. DISCUSSED WITH YADIRA
--- NOTE | 2018-12-18 14:00 | NUR ---
PT DISCHARGING TODAY TO [facility] FAXED DC ORDERS/SUMMARY TO FACILITY SPOKE WITH JOHN IN ADM SHE RECEIVED DC ORDERS AND ARRANGED TRANSPORT WITH [facility] FOR 1700. NOTIFIED PT'S SON (ROSELIA) OF DC AND TIME OF TRANSPORT. UNIT NOTIFIED AND CHART COPY PER US. RN TO CALL REPORT TO [phone].
--- NOTE | 2018-12-18 16:20 | NUR ---
DCP NOTIFIED BY 4E RN THAT PT WILL NOT BE ABLE TO DISCHARGE TODAY DUE TO PEG TUBE IS CLOGGED AND THEY CANNOT TAKE CARE OF IT TIL MORNING. NOTIFIED [facility] LEMONS SPOKE WITH JOHN IN ADM AND TRANSPORT CANCELLED. NOTIFIED PT'S SON OF DC CANCELLED. DCP TO FOLLOW.
[2018-12-18 17:10] VITALS: BP 136/62
--- NOTE | 2018-12-18 18:17 | NUR ---
PT ASSESSED AT START OF SHIFT. TALKING SOME BUT DIFFICULT TO UNDERSTAND. ATTEMPTED TO FLUSH J-TUBE AND IT WOUND NOT FLUSH. IR RN AND MYSELF TRIED TO IRRIGATE W/ COLA AND PANCREATIC ENZYME BUT UNABLE TO OPEN. DR. DODSON AWARE AND DISCHARGE ON HOLD UNTIL IR CAN REPLACE TUBE IN THE AM.
[2018-12-18 19:08] VITALS: BP 145/68
--- NOTE | 2018-12-19 02:57 | NUR ---
ASSUMED CARE OF PT @1900 GOT REPORT FROM DAY NURSE ABOUT CLOGGED TUBE. PT NPO AND TUBE FEEDING NOT INFUSING. EVENING MEDS AND INSULIN NOT ADMINISTERED. BP MEDS GIVEN VIA IV. PT INCONTINENT OF BOWEL AND BLADDER. CALLED DR DODSON AND INFORMED ABT TUBE. STATED ITS FINE TO ADMINISTER MEDS VIA GTUBE ONLY. PRESSURE BOOT ON BLE. PT TURNED REGULARLY. WILL CONT WITH POC TILL EOS
[2018-12-19 03:57] VITALS: BP 138/67
[2018-12-19 06:27] LABS: ALBUMIN 1.8 g/dL (3.4-5.0); CALCIUM 8.2 mg/dL (8.5-10.1); CREATININE 1.5 mg/dL (0.7-1.3); PHOSPHORUS 4.3 mg/dL (2.5-4.9); POTASSIUM 3.9 mmol/L (3.5-5.1)
[2018-12-19 07:26] VITALS: BP 137/62
--- NOTE | 2018-12-19 09:35 | NUR ---
PT A&OXSELF, IV INTACT IN R FA. NON AMB., PT WILL BE PICKED BY IR APPROX 10:30 FOR PEG TUBE REPLACEMENT. PT HAS BEEN NPO SINCE GA.PLANS ARE FOR PT TO RETURN TO [facility] AFTER PROCEDURE. WILL CONT POC.
[2018-12-19 16:39] VITALS: BP 137/63
--- NOTE | 2018-12-19 16:51 | NUR ---
PT HAS HAD PEG TUBE REPLACED AND IS READY FOR DISCHARGE TODAY. FAXED DC ORDERS/SUMMARY TO [facility] LEMONS SPOKE WITH JOHN IN ADM SHE RECEIVED DC ORDERS AND ARRANGED TRANSPORT BY [facility] FOR [phone]. NOTIFIED PT'S SON (ROSELIA) OF DC AND TIME OF TRANSPORT. UNIT NOTIFIED AND CHART COPY PER US. RN TO CALL REPORT TO [phone].
--- NOTE | 2018-12-19 19:52 | NUR ---
PT RETURNED FROM IR WITH NEW PEG TUBE. DC ORDERS RECEIVED. IV REMOVED FROM R FA. QASIM CHAGED TO L AND R HEEL, R OUTER LEG AND PICTURES TAKEN. [facility] PICKED UP PT AT 1830. ATTEMPT TO CALL REPORT TO BRISEIDA KING UNSUCSESSFUL NO ANSWERE X2 ATTEMPTS.
== END 2018-12-19 18:47 | DRG 871 ==
LOC: ER 17:14 → ICU 20:06 → EROBS 20:06 → 4E 20:06 → ICU 20:45 → 4E 12-13 12:06
PROVIDERS: Hospitalist; Internal Medicine Nephrology; Nurse Practitioner; Specialist; ADMIT Internal Medicine
PROC: 0D2DXUZ Change Feeding Device in Lower Intestinal Tract, External Approach (ICD-10-PCS; principal; 2018-12-19)
DX: A41.9 Sepsis, unspecified organism (principal); J69.0 Pneumonitis due to inhalation of food and vomit; N18.6 End stage renal disease; K94.13 Enterostomy malfunction; N17.9 Acute kidney failure, unspecified; E87.0 Hyperosmolality and hypernatremia; I42.9 Cardiomyopathy, unspecified; K94.23 Gastrostomy malfunction; N39.0 Urinary tract infection, site not specified; Z94.0 Kidney transplant status; Y83.9 Surgical procedure, unspecified as the cause of abnormal reaction of the patient, or of later complication, without mention of misadventure at the time of the procedure; I12.9 Hypertensive chronic kidney disease with stage 1 through stage 4 chronic kidney disease, or unspecified chronic kidney disease; Y95 Nosocomial condition; E11.22 Type 2 diabetes mellitus with diabetic chronic kidney disease; E87.6 Hypokalemia; E78.5 Hyperlipidemia, unspecified; I25.10 Atherosclerotic heart disease of native coronary artery without angina pectoris; E86.0 Dehydration; R62.7 Adult failure to thrive; R41.0 Disorientation, unspecified; E11.43 Type 2 diabetes mellitus with diabetic autonomic (poly)neuropathy; K31.84 Gastroparesis; D63.8 Anemia in other chronic diseases classified elsewhere; F03.90 Unspecified dementia, unspecified severity, without behavioral disturbance, psychotic disturbance, mood disturbance, and anxiety; Z79.4 Long term (current) use of insulin; I25.2 Old myocardial infarction; Z95.5 Presence of coronary angioplasty implant and graft; Z88.0 Allergy status to penicillin; Z68.25 Body mass index [BMI] 25.0-25.9, adult; Z95.0 Presence of cardiac pacemaker; Z79.899 Other long term (current) drug therapy
CPT/HCPCS: 10078; 10783

== ENCOUNTER → 2018-12-27 | Outpatient (CLI) | payer OTHER ==
[~2018-12-27] VITALS: Ht 167.6 cm; Wt 63.5 kg
[~2018-12-27] MED LIST changes: +BETADINE30 ML TOP; +CYMBALTA20 MG PER TUBE; +DOXYCYCLINE HYC50 MG PO; +LANTUS SUBQ; +LANTUS100 UNIT/M SUBQ; +LIPITOR40 MG PER TUBE; +NORVASC5 MG PER TUBE; +PREDNISONE 20 M20 MG PER TUBE; +SYNTHROID25 MC1 PER TUBE; +TORSEMIDE20 MG PER TUBE
[2018-12-27 11:36] VITALS: BP 129/60
--- NOTE | 2018-12-27 13:10 | NUR ---
Pt arrived for g/j tube check for clodded jejunem port on feeding tube. Piston syringe with coke used to try to dissolve blockage. In addition, pancrease with sodium bicarb allowe to dwell in tube for 30 minutes. Tube now functioning. Written instructions given to not give meds through J tube port and to flush generously before and after tube feeding.
== END ==
LOC: CATH 10:22
DX: Z43.1 Encounter for attention to gastrostomy (principal); M47.816 Spondylosis without myelopathy or radiculopathy, lumbar region